=== PATIENT | female | born 1975 | race Caucasian/White ===

== ENCOUNTER → 2018-10-20 | Outpatient (REF) | payer OTHER ==
[2018-10-20 14:59] LABS: BASO % 0.2 % (0.0-1.0); EOS # 0.1 10^3/uL (0.0-0.50); EOS % 1.1 % (0.0-3.0); HEMATOCRIT 35.4 % (36.0-47.0); HEMOGLOBIN 11.3 g/dl (12.0-15.5); LYMPH # 1.1 10^3/uL (1.5-4.5); LYMPH % 24.7 % (24.0-44.0); MEAN CORPUSCULAR HEMOGLOBIN 29.6 pg (27.0-33.0); MEAN CORPUSCULAR HGB CONC 31.9 g/dl (32.0-36.5); MEAN CORPUSCULAR VOLUME 92.7 fl (80.0-96.0); MONO # 0.4 10^3/uL (0.0-0.8); MONO % 7.7 % (0.0-5.0); NEUTROPHILS % 66.1 % (36.0-66.0); PLATELET COUNT, AUTOMATED 142 10^3/uL (150-450); RED BLOOD COUNT 3.82 10^6/uL (4.00-5.40); WHITE BLOOD COUNT 4.5 10^3/uL (4.0-10.0)
[2018-10-20 15:12] LABS: TOTAL PROTEIN,RANDOM URINE 83.4 MG/DL (0.0-12.0)
[2018-10-20 15:13] LABS: APPEARANCE, URINE HAZY (CLEAR); BACTERIA, URINE AUTO 2+ (NEGATIVE); BILIRUBIN, URINE AUTO NEGATIVE (NEGATIVE); BLOOD, URINE BLOOD NEGATIVE (NEGATIVE); COLOR, URINE AMBER (YELLOW); GLUCOSE, URINE (UA) AUTO NEGATIVE (NEGATIVE); KETONE, URINE AUTO TRACE mg/dL (NEGATIVE); LEUKOCYTE ESTERASE, URINE AUTO TRACE (NEGATIVE); MUCUS, URINE SMALL (NEGATIVE); NITRITE, URINE AUTO NEGATIVE (NEGATIVE); PROTEIN, URINE AUTO 1+ mg/dL (NEGATIVE); RBC, URINE AUTO 3 /HPF (0-3); SPECIFIC GRAVITY URINE AUTO 1.023 (1.002-1.035); SQUAMOUS EPITHELIAL CELL UR AU 2 /HPF (0-6); UROBILINOGEN, URINE AUTO 0.2 mg/dL (0.0-2.0); WBC, URINE AUTO 18 /HPF (0-3)
[2018-10-20 15:26] LABS: ALBUMIN 3.5 GM/DL (3.2-5.2); ALT/SGPT 15 U/L (12-78); BILIRUBIN,TOTAL 0.3 MG/DL (0.2-1.0); BLOOD UREA NITROGEN 11 MG/DL (7-18); C REACTIVE PROTEIN QUANTITATIV < 0.30 MG/DL (0.00-0.30); CALCIUM LEVEL 8.5 MG/DL (8.5-10.1); CARBON DIOXIDE LEVEL 31 MEQ/L (21-32); CHLORIDE LEVEL 104 MEQ/L (98-107); COMPLEMENT C3 84 MG/DL (90-180); COMPLEMENT C4 19 MG/DL (10-40); CREATININE FOR GFR 0.74 MG/DL (0.55-1.30); GLOMERULAR FILTRATION RATE > 60.0 (>58); GLUCOSE, FASTING 73 MG/DL (70-100); POTASSIUM SERUM 4.2 MEQ/L (3.5-5.1); SODIUM LEVEL 140 MEQ/L (136-145); TOTAL PROTEIN 6.4 GM/DL (6.4-8.2)
[2018-10-20 15:30] LABS: ERYTHROCYTE SEDIMENTATION RATE 6 mm/hr (0-20)
[2018-10-21 14:25] LABS: ANTI DOUBLE STRAND-DNA AB 1 IU/mL (0-9); RNP ANTIBODY < 0.2 AI (0.0-0.9); SMITHS ANTIBODY < 0.2 AI (0.0-0.9); SSA SJOGRENS A <0.2 AI (0.0-0.9); SSB SJOGRENS B <0.2 AI (0.0-0.9)
[2018-10-22 00:07] LABS: ANA (HEP2) Positive (.)
== END ==
LOC: M SFHCPLAZ 13:39
PROVIDERS: ATTEND Internal Medicine Rheumatology
DX: M32.9 Systemic lupus erythematosus, unspecified (principal)

== ENCOUNTER → 2019-01-11 | Outpatient (REF) | payer OTHER ==
[2019-01-11 18:30] LABS: ALBUMIN 3.3 GM/DL (3.2-5.2); ALT/SGPT 26 U/L (12-78); BILIRUBIN,TOTAL 0.4 MG/DL (0.2-1.0); BLOOD UREA NITROGEN 9 MG/DL (7-18); CALCIUM LEVEL 8.3 MG/DL (8.5-10.1); CARBON DIOXIDE LEVEL 31 MEQ/L (21-32); CHLORIDE LEVEL 102 MEQ/L (98-107); COMPLEMENT C3 70 MG/DL (90-180); COMPLEMENT C4 18 MG/DL (10-40); CREATININE FOR GFR 0.79 MG/DL (0.55-1.30); GLOMERULAR FILTRATION RATE > 60.0 (>58); GLUCOSE, FASTING 77 MG/DL (70-100); POTASSIUM SERUM 3.9 MEQ/L (3.5-5.1); SODIUM LEVEL 138 MEQ/L (136-145); TOTAL PROTEIN 6.4 GM/DL (6.4-8.2)
[2019-01-11 18:43] LABS: BASO % 0.5 % (0.0-1.0); EOS % 0.9 % (0.0-3.0); HEMATOCRIT 33.7 % (36.0-47.0); HEMOGLOBIN 11.1 g/dl (12.0-15.5); LYMPH # 1.2 10^3/uL (1.5-4.5); MEAN CORPUSCULAR HEMOGLOBIN 30.6 pg (27.0-33.0); MEAN CORPUSCULAR HGB CONC 32.9 g/dl (32.0-36.5); MEAN CORPUSCULAR VOLUME 92.8 fl (80.0-96.0); MONO # 0.4 10^3/uL (0.0-0.8); MONO % 9.2 % (0.0-5.0); NEUTROPHILS # 2.7 10^3/uL (1.8-7.7); NEUTROPHILS % 62.2 % (36.0-66.0); PLATELET COUNT, AUTOMATED 143 10^3/uL (150-450); RED BLOOD COUNT 3.63 10^6/uL (4.00-5.40); WHITE BLOOD COUNT 4.3 10^3/uL (4.0-10.0)
[2019-01-12 13:36] LABS: TOTAL PROTEIN,RANDOM URINE 25.8 MG/DL (0.0-12.0)
== END ==
LOC: M SFHCPLAZ 15:37
PROVIDERS: ATTEND Internal Medicine Rheumatology
DX: M32.9 Systemic lupus erythematosus, unspecified (principal)

== ENCOUNTER → 2019-07-09 | Outpatient (CLI) | payer OTHER ==
--- NOTE | 2019-07-23 04:40 | ECWPNPC ---
PATIENT NAME: CINDA NUR : 1975 GENDER: FEMALE VISIT DATE: 07/09/2019 DISCHARGE DATE: 07/09/19 1058 VISIT LOCKED DATE TIME: PHYSICIAN: KARO ROY MD RESOURCE: KARO ROY MD REASON FOR APPOINTMENT 1. NECK/BACK HISTORY OF PRESENT ILLNESS PAIN SCREENING: PATIENT HAS A COMPLAINT OF ACUTE OR CHRONIC PAIN :YES 44 YEAR OLD FEMALE PATIENT WITH A HISTORY OF CHRONIC BACK PAIN. THE PATIENT DESCRIBES THE PAIN ACHING, BURNING, SORE, TENDER, AND CONTINUOUS WITH A PAIN SCORE OF 6-9/10 DEPENDING ON PHYSICAL ACTIVITY. THE PATIENT STATES HER PAIN IS MAINLY LOCATED OVER HER NECK, THORACIC, AND LOW BACK AREAS. THE PATIENT SAYS HER PAIN IS AFFECTING HER ABILITY TO PERFORM HER DAILY ACTIVITIES SUCH COOKING, CLEANING HER HOUSE, AND GROCERY SHOPPING. THE PATIENT SAYS SHE HAS BEEN SUFFERING FROM HER NECK PAIN FOR MANY YEARS, WHILE HER LOW BACK PAIN STARTED AROUND 2 YEARS AGO. THE PATIENT SAYS CURRENTLY HER MAIN CONCERN IS HER LOW BACK AND THORACIC PAIN. PATIENT DENIES UNEXPLAINABLE WEIGHT LOSS, FEVER, CHILLS, NEW CHANGES ON HER URINARY OR BOWEL CONTROL. FALL RISK SCREENING: SCREENING :NO FALLS REPORTED IN THE LAST YEAR CURRENT MEDICATIONS TAKING BUPROPION HCL ER (XL) 150 MG TABLET EXTENDED RELEASE 24 HOUR 1 TABLET IN THE MORNING ORALLY ONCE A DAY TAKING LEVOTHYROXINE SODIUM 150 MCG TABLET 1 TABLET ON AN EMPTY STOMACH IN THE MORNING ORALLY ONCE A DAY TAKING OMEPRAZOLE 40 MG CAPSULE DELAYED RELEASE 1 CAPSULE ORALLY TWICE DAILY TAKING VERAPAMIL HCL ER 180 MG TABLET EXTENDED RELEASE 1 TABLET ORALLY ONCE A DAY TAKING VYVANSE 70 MG CAPSULE 1 CAPSULE IN THE MORNING ORALLY ONCE A DAY TAKING VITAMIN C 500 MG CAPSULE DIRECTED ORALLY TAKING MULTI VITAMIN DAILY - TABLET 1 TABLET ORALLY ONCE A DAY TAKING IRON 325 (65 FE) MG TABLET 1 TABLET ORALLY 3 TIMES PER WEEK TAKING GABAPENTIN 600 MG TABLET 2 TABLETS ORALLY TWICE DAILY TAKING OXYBUTYNIN CHLORIDE 5 MG TABLET 1 TABLET ORALLY DAILY TAKING CLONAZEPAM 1 MG TABLET 1-2 TABLETS ORALLY TWICE DAILY NEEDED TAKING PRAZOSIN HCL 5 MG CAPSULE 1 CAPSULE AT BEDTIME ORALLY BEFORE BEDTIME TAKING TRAZODONE HCL 100 MG TABLET 1- 1/2 TABLETS AT BEDTIME ORALLY QHS PRN TAKING CALCIUM + D3 600-800 MG-UNIT TABLET 1 TABLET WITH A MEAL ORALLY ONCE A DAY MAGNESIUM, ZINC TAKING PLAQUENIL 200 MG TABLET 1 TABLET WITH FOOD OR MILK ORALLY BID TAKING MIRALAX - PACKET 1 PACKET MIXED WITH 8 OUNCES OF FLUID ORALLY 17 GRAMS IN OJ PRN ONCE A DAY TAKING DEPAKOTE 1 CAP ORALLY 500MG BID TAKING MAXALT-LESSON INSTRUCTOR 10 MG TABLET DISINTEGRATING 1 TABLET ORALLY ONCE DAILY NEEDED TAKING DULOXETINE HCL 30 MG CAPSULE DELAYED RELEASE PARTICLES 1 CAPSULE ORALLY ONCE A DAY TAKING HAIR SKIN AND NAILS FORMULA - TABLET DIRECTED ORALLY NOT-TAKING LATUDA 40 MG TABLET 1 TABLET WITH FOOD ORALLY ONCE A DAY NOT-TAKING DIVALPROEX SODIUM 500 MG TABLET DELAYED RELEASE 1 TABLET ORALLY BID NOT-TAKING HYDROXYCHLOROQUINE SULFATE 200 MG TABLET 1 TABLET WITH FOOD OR MILK ORALLY BID NOT-TAKING RIZATRIPTAN BENZOATE 10 MG TABLET 1 TABLET NEEDED ONE TIME ORALLY MDD=2 NOT-TAKING HYDROXYCHLOROQUINE SULFATE 200 MG TABLET 1 TABLET WITH FOOD OR MILK ORALLY BID NOT-TAKING TIZANIDINE HCL 2 MG TABLET TAKE ONE TABLET BY MOUTH THREE TIMES A DAY NEEDED ORAL MEDICATION LIST REVIEWED AND RECONCILED WITH THE PATIENT PAST MEDICAL HISTORY ARTHRITIS DEPRESSION ANXIETY HEADACHE MIGRAINE HEADACHES HYPERTENSION PSYCHIATRIC DISORDER THYROID DISEASE INSOMNIA PTSD FIBROMYALGIA ESOPHAGEAL REFLUX NIGHT [place] SYSTEMIC LUPUS ERYTHATOSUS LYME DISEASE PER 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 1 SON(S) , 2 DAUGHTER(S) - HEALTHY. MOTHER AND FATHER HEALTHYGRANDMOTHER STROKE, DEMENTIA. SOCIAL HISTORY GENERAL: TOBACCO USE ARE YOU A:NONSMOKER OTHERS AT HOME: CHILDREN. HOUSING: OWNS HOME. EDUCATION LEVEL OF EDUCATION:HIGH SCHOOL DIET: REGULAR. LANGUAGE LANGUAGES SPOKEN:KAZAKH DOMESTIC VIOLENCE STATUS: DO YOU FEEL SAFE IN YOUR ENVIRONMENT?NO RECREATIONAL DRUG USE DRUG USE?NO PATIENT DENIES ABUSE OR MISSUSED OF ANY MEDICATION DENIES PATIENT DENIES USE OF ANY ILLEGAL SUBSTANCE INCLUDING MARIJUANA OR COCAINE DENIES EXERCISE: , NO REGULAR EXERCISE. LEARNING BARRIERS / SPECIAL NEEDS BARRIERS TO LEARNING?NO HEARING IMPAIRED?NO VISION IMPAIRED?YES :CORRECTIVE LENSES COGNITIVELY IMPAIRED?NO READINESS TO LEARN?YES LEARNING PREFERENCES?YES :DEMONSTRATION/VERBAL INSTRUCTION LEARNING CAPABILITIES PRESENT?YES EMOTIONAL BARRIERS?NO SPECIAL DEVICES?NO SUPERINTENDENT TERMINAL NEEDED?NO PAIN CLINIC PFS, CLERGY, PUBLIC HEALTH REFERRALS PFS REFERRAL NEEDED?NO CLERGY REFERRAL NEEDED?NO PUBLIC HEALTH REFERRAL NEEDED?NO WAS THE PROVIDER NOTIFIED OF ANY PERTINENT INFO?YES HAS THE PATIENT BEEN EDUCATED REGARDING HIS/HER PLAN OF CARE?YES HAS THE PATIENT BEEN EDUCATED REGARDING PAIN, THE RISK FOR PAIN, THE IMPORTANCE OF EFFECTIVE PAIN MANAGEMENT, AND THE PAIN ASSESSMENT PROCESS?YES LATEX QUESTIONNAIRE LATEX ALLERGY : HAVE YOU EVER DEVELOPED ANY TYPE OF REACTION AFTER HANDLING LATEX PRODUCTS SUCH RUBBER GLOVES, CONDOMS, DIAPHRAGMS, BALLOONS, SOCKS, OR UNDERWEAR?NO LATEX ALLERGY : HAVE YOU EVER DEVELOPED ANY TYPE OF REACTION DURING OR AFTER DENTAL APPOINTMENT, VAGINAL/RECTAL EXAMINATION, SURGICAL PROCEDURE, OR ANY OTHER EXPOSURE?NO LATEX RISK : HAVE YOU EVER HAD ANY DIFFICULTY BREATHING OR HIVES AFTER EATING OR HANDLING ANY FRUITS, OR VEGETABLES; SUCH KIWI, BANANAS, STONE FRUITS, OR CHESTNUTSNO LATEX RISK : DO YOU HAVE A PREVIOUS PERSONAL HISTORY OF MORE THAN NINE SURGERIES, SPINA BIFIDA, OR REPEATED CATHERIZATIONS? NO LATEX RISK : ARE YOU FREQUENTLY EXPOSED TO LATEX PRODUCTS IN YOUR OCCUPATION?NO DATE ASKED : 07/01/2019 CAFFEINE CAFFEINE USE?YES TEA 1 CUP DAILY SODA 1 OCCASIONALLY ADVANCE DIRECTIVE ADVANCE DIRECTIVE DISCUSSED WITH PATIENT:NO STATES SHE HAS NO ADVANCED DIRECTIVES INTERESTED IN HAVING PAPERWORK 07/01/19 1147 [facility] NO CONGREGATION BELIEFS THAT WOULD IMPACT HEALTH CARE. MARITAL STATUS: .. ALCOHOL SCREENING DID YOU HAVE A DRINK CONTAINING ALCOHOL IN THE PAST YEAR?YES HOW OFTEN DID YOU HAVE A DRINK CONTAINING ALCOHOL IN THE PAST YEAR?MONTHLY OR LESS (1 POINT) HOW MANY DRINKS DID YOU HAVE ON A TYPICAL DAY WHEN YOU WERE DRINKING IN THE PAST YEAR?3 OR 4 (1 POINT) HOW OFTEN DID YOU HAVE SIX OR MORE DRINKS ON ONE OCCASION IN THE PAST YEAR?NEVER (0 POINTS) POINTS2 INTERPRETATIONNEGATIVE OCCUPATION: DISABELED. REVIEWED WITH PATIENT PT REQUEST HCP PAPERWORK AT APPT 07/01/19 1145 NLJ PRE NEW PT CONSULT APPT TELEPHONE CALL COMPLETED 07/01/19 1150 NLJ. HOSPITALIZATION/MAJOR DIAGNOSTIC PROCEDURE CHILDBIRTH KIDNEY INFECTION SURGERIES REVIEW OF SYSTEMS REVIEWED BY: PROVIDER: KARO ROY MD . CONSTITUTIONAL: ANY CHANGE IN YOUR MEDICAL CONDITION? YES- ? LYME DISEASE FROM BLOOD WORK IN MAY 2019- SEEING VET TECH . CHILLS NO . FEVER NO . INFECTION: DO YOU HAVE NEW INFECTIONS? YES- BLADDER INFECTION . DO YOU HAVE HISTORY OF MRSA? NO . MUSCULOSKELETAL: ANY NEW PATTERNS OF PAIN OR NUMBNESS? NO . SYTEMIC LUPUS YES . GASTROENTEROLOGY: ANY NEW CHANGE IN BOWEL CONTROL? NO . BARRETTS ESOPHAGUS NO . CIRRHOSIS NO . HEPATITIS NO . LIVER FAILURE NO . ACID REFLUX YES . UNEXPLAINED WEIGHT LOSS NO . GENITOURINARY: ANY NEW CHANGE IN BLADDER CONTROL? YES- URINARY URGENCY- TAKES OXYBUTIN CHLORIDE . IS THERE A CHANCE YOU COULD BE ? NO . HEMATOLOGY/LYMPH: DO YOU TAKE ANY BLOOD THINNERS? (FOR EXAMPLE- COUMADIN, PLAVIX, AGGRENOX, PLATEL, PRADAXA, OR XARELTO) NO . WHEN WAS YOUR LAST DOSE? DATE: TIME: . LOW PLATELET COUNT NO . SICKLE CELL DISEASE NO . VON WILLIEBRANDS NO . FACTOR V LEIDEN NO . THALLASEMIA NO . ANEMIA YES- TAKES IRON 3-4 TIMES A WEEK . EASY BRUISING NO . NEUROLOGY: HAVE YOU FALLEN IN THE PAST 12 MONTHS? NO . ANY NEW EXTREMITY NUMBNESS OR WEAKNESS? NO . HEAD INJURY NO . DEMENTIA NO . CEREBRAL PALSY NO . MULTIPLE SCLEROSIS NO . DIZZINESS IMPROVING . HEADACHE ADMITS- STATESSHE HAS FREQUENT MIGRAINES . STROKES NO . VERTIGO NO . CARDIOLOGY: DO YOU HAVE A PACEMAKER OR DEFIBRILLATOR? NO . ANGINA NO . HEART ATTACK NO . HEART SURGERY NO . CONGESTIVE HEART FAILURE/FLUID OVERLOAD NO . CHEST PAIN NO . HIGH BLOOD PRESSURE NO . IRREGULAR HEART BEAT NO . RESPIRATORY: HAVE YOU BEEN SICK IN THE PAST WEEK? NO . FEVER NO . FLU LIKE SYMPTOMS? NO . CPAP NO . BYPAP NO . ASTHMA NO . EMPHYSEMA NO . CHRONIC LUNG DISEASES NO . SHORTNESS OF BREATH ON EXERTION NO . COUGH NO . SNORING NO . INTEGUMENTARY: DO YOU HAVE ANY RASHES OR OPEN SORES? NO . ALLERGIC/IMMUNO: ARE YOU ALLERGIC TO IV DYE? NO . ANY NEW ALLERGIES? NO . PSYCHIATRIC: DO YOU HAVE THOUGHTS OF HURTING YOURSELF OR SOMEONE ELSE? NO . ARE YOU ABUSED, NEGLECTED, OR IN AN UNSAFE ENVIRONMENT? NO . ENDOCRINOLOGY: ARE YOU DIABETIC? NO . THYROID DISORDER HYPOTHYROID . OTHER: DO YOU NEED ANY PRESCRIPTIONS? NO . IF YES, PLEASE LIST: ____ . ANY NEW PROBLEMS WITH YOUR MEDICATIONS? NO . WHEN DID YOU LAST EAT? ____ . WHEN DID YOU LAST DRINK? ____ . WHAT DID YOU LAST DRINK? ____ . NAME OF PERSON DRIVING YOU HOME? ____ . DO YOU HAVE ANY OTHER QUESTIONS OR CONCERNS NO . VITAL SIGNS WT 151.4 LBS, HT 64 IN, BMI 25.98 INDEX, BP 145/89 MM HG, HR 66 /MIN, RR 18 /MIN, TEMP 96.9 F, OXYGEN SAT % 100%, SAFE IN ENV? (Y/N) YES, NA INITIALS NC 09:16, REVIEWED BY: MATT. EXAMINATION GENERAL EXAMINATION: PATIENT IS ALERT O X 3 AND COOPERATIVE. LUNGS CLEAR, TO AUSCULTATION. HEART: NO MURMURS OR GALLOPS; FACIAL CRANIAL NERVES ARE GROSSLY NORMAL. GOOD SYMMETRY OF FACIAL MUSCLE MOVEMENT. NORMAL VISUAL SHEPARD. ANTALGIC WALK. PATIENT IS SLIGHTLY LIMPING OVER HER RIGHT LEG. PATIENT CAN ABDUCT UPPER EXTREMITIES. LEFT ARM IS WEAKER AT EXTENSION AND FLEXION. LEFT HAND WILL CALL ORDER CLERK IS REDUCED COMPARED WITH THE RIGHT SIDE. TENDERNESS OVER THE PARASPINAL MUSCLE GROUP OF THE NECK AND SHOULDER AREAS. PRESENCE OF BANDS OF TISSUE AND TRIGGER POINTS WITH RESTRICTION OF MOVEMENT OF THE NECK AND SHOULDER AREAS. TENDERNESS OVER THE PARASPINAL MUSCLE GROUP OF THE THORACIC AND LOW BACK AREAS. PRESENCE OF BANDS OF TISSUE AND TRIGGER POINTS WITH RESTRICTION OF MOVEMENT OF THE THORACIC AND LOW BACK. RIGHT LEG IS WEAKER AT EXTENSION AND FLEXION. STRAIGHT LEG RAISE OF THE RIGHT LEG IS POSITIVE AT 45 DEGREES FOR RADICULOPATHY. MRI OF THE CERVICAL SPINE DONE ON 05/10/2019 SHOWS BULGING DISCS AND FACET ARTHROPATHY CHANGES AT MULTIPLE LEVELS. LUMBAR SPINE MRI DONE ON 05/10/2019 SHOWS DISC DEGENERATION AT L3-L4 AND A TEAR OF THE RIGHT L3 ROOTLET. 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 NUR'S PAIN MANAGEMENT CASE. I WOULD LIKE TO ORDER FOR A THORACIC X-RAY TO GAIN A BETTER UNDERSTANDING OF WHAT IS CAUSING THE PATIENT'S THORACIC PAIN. DUE TO THE TRIGGER POINTS, BANDS OF TISSUE, AND RESTRICTION OF MOVEMENT, I WOULD LIKE TO MOVE FORWARD WITH A LOW BACK TRIGGER POINT INJECTION AT THIS TIME. WE DISCUSSED THE BENEFITS, RISKS, AND ALTERNATIVES OF THE INJECTION AND THE PATIENT WOULD LIKE TO PROCEED. I AM LOOKING FOR LONG LASTING PAIN RELIEF FROM THIS INJECTION FOR THE PATIENT. DEPENDING ON THE TRIGGER POINT INJECTION RESULTS, I MAY CONSIDER PERFORMING A L3-L4 LUMBAR EPIDURAL STEROID INJECTION IN THE FUTURE. THE PATIENT WILL FOLLOW UP IN SEVERAL WEEKS TO SEE HOW THE TRIGGER POINT INJECTION IS HELPING WITH HER PAIN. INSTRUCTIONS WERE GIVEN, QUESTIONS WERE ANSWERED, PATIENT REPORTS UNDERSTANDING AND AGREES WITH THE PLAN. I, MONALISA SULLIVAN, DOCUMENTED THE ABOVE INFORMATION ACTING A SCRIBE FOR DR. ROY. I HAVE REVIEWED THE ABOVE DOCUMENT, WRITTEN BY MONALISA ROSA AND I VERIFY THAT IT IS ACCURATE. DEAR GILLIAN CABRAL PA-C: THANK YOU FOR YOUR KIND REFERRAL OF CINDA NUR. IF YOU WANT TO DISCUSS HER CASE WITH ME PLEASE CALL ME AT THE PAIN CENTER AT [phone]. SINCERELY, KARO ROY MD PAIN MEDICINE . OTHERS NOTES: TRIGGER POINT INJECTION, TRIGGER POINT INJECTIONS, TRIGGER POINT INJECTION HOME CARE MATERIAL WAS PUBLISHED TO PORTAL,TRIGGER POINT INJECTION HOME CARE MATERIAL WAS PRINTED,TRIGGER POINT INJECTION MATERIAL WAS PRINTED. PROCEDURE CODES FA211 ESTABILISHED PATIENT [facility] FACILITY CHARGE G8427 CURRENT MEDS W/DOSAGES DOCUMENTED G8730 PAIN ASSESS POS TOOL F/U PLAN DOC DISPOSITION & COMMUNICATION FOLLOW UP REASON: ORDER THORACIC X-RAY, TPI LB ELECTRONICALLY SIGNED BY KARO ROY MD, MD ON 07/22/2019 AT 01:55 PM EST DISCLAIMER : THIS IS A VISIT SUMMARY EXTRACTED FROM THE Last[employer] CHART. IT IS NOT A COPY OF THE Last[employer] PROGRESS NOTE. LURDES
== END ==
LOC: M PAIN 09:15
PROVIDERS: ATTEND Anesthesiology
DX: M79.18 Myalgia, other site (principal); M54.2 Cervicalgia; M54.5 Low back pain; G89.29 Other chronic pain; M47.812 Spondylosis without myelopathy or radiculopathy, cervical region; M51.16 Intervertebral disc disorders with radiculopathy, lumbar region

== ENCOUNTER → 2019-10-01 | Outpatient (CLI) | payer OTHER ==
[~2019-10-01] MED LIST: BUPIVACAINE HCL 0.25% 30 ML VIAL As Ordered ONE; TRIAMCINOLONE ACETONIDE SUSP 40 MG/ML VIAL (J3301) As Ordered ONE; diazePAM 5 MG TAB As Ordered ONE
--- NOTE | 2019-10-15 04:10 | ECWPNPC ---
PATIENT NAME: CINDA NUR : 1975 GENDER: FEMALE VISIT DATE: 10/01/2019 DISCHARGE DATE: 10/01/19 1007 VISIT LOCKED DATE TIME: PHYSICIAN: KARO ROY MD RESOURCE: KARO ROY MD REASON FOR APPOINTMENT 1. CASSIDY LB TPI HISTORY OF PRESENT ILLNESS HISTORY OF PRESENT ILLNESS: PAIN THE PATIENT DESCRIBES THE PAIN... FALL RISK SCREENING: SCREENING :NO FALLS REPORTED IN THE LAST YEAR CURRENT MEDICATIONS TAKING METHOTREXATE SODIUM 2.5 MG TABLET 4 TABLETS DIRECTED ORALLY ONCE WEEKLY, NOTES: 09/26 TAKING FOLIC ACID 1 MG TABLET 1 TABLET ORALLY ONCE A DAY, NOTES: 09/29 TAKING BUPROPION HCL ER (XL) 150 MG TABLET EXTENDED RELEASE 24 HOUR 1 TABLET IN THE MORNING ORALLY ONCE A DAY, NOTES: 09/29 TAKING LEVOTHYROXINE SODIUM 150 MCG TABLET 1 TABLET ON AN EMPTY STOMACH IN THE MORNING ORALLY ONCE A DAY, NOTES: 09/29 TAKING OMEPRAZOLE 40 MG CAPSULE DELAYED RELEASE 1 CAPSULE ORALLY TWICE DAILY, NOTES: 09/29 TAKING VERAPAMIL HCL ER 180 MG TABLET EXTENDED RELEASE 1 TABLET ORALLY ONCE A DAY, NOTES: 09/29 TAKING VYVANSE 70 MG CAPSULE 1 CAPSULE IN THE MORNING ORALLY ONCE A DAY, NOTES: 09/29 TAKING IRON 325 (65 FE) MG TABLET 1 TABLET ORALLY 3 TIMES PER WEEK, NOTES: 09/29 TAKING GABAPENTIN 600 MG TABLET 2 TABLETS ORALLY TWICE DAILY, NOTES: 09/29 TAKING OXYBUTYNIN CHLORIDE 5 MG TABLET 1 TABLET ORALLY DAILY, NOTES: 09/29 TAKING CLONAZEPAM 1 MG TABLET 1-2 TABLETS ORALLY TWICE DAILY NEEDED, NOTES: 09/29 TAKING PRAZOSIN HCL 2 MG CAPSULE 1 CAPSULE AT BEDTIME ORALLY BEFORE BEDTIME, NOTES: 09/29 TAKING TRAZODONE HCL 50 MG TABLET 1- 1/2 TABLETS AT BEDTIME ORALLY QHS PRN, NOTES: 09/29 TAKING PLAQUENIL 200 MG TABLET 2 TABLETS ORALLY BID, NOTES: 09/29 TAKING MIRALAX - PACKET 1 PACKET MIXED WITH 8 OUNCES OF FLUID ORALLY 17 GRAMS IN OJ PRN ONCE A DAY, NOTES: NEEDED TAKING DEPAKOTE 1 CAP ORALLY 500MG BID, NOTES: 09/29 TAKING MAXALT-CONCRETE MIXER LOADER TRUCK MOUNTED 10 MG TABLET DISINTEGRATING 1 TABLET ORALLY ONCE DAILY NEEDED, NOTES: NONE RECENT TAKING DULOXETINE HCL 30 MG CAPSULE DELAYED RELEASE PARTICLES 1 CAPSULE ORALLY TWICE A DAY, NOTES: 09/29 TAKING REXULTI 1 MG TABLET 1 TABLET ORALLY ONCE A DAY, NOTES: 09/29 14 DAY STARTER PACK (0.5 MG - 1 MG) TAKING CYCLOBENZAPRINE HCL 10 MG TABLET 1 TABLET AT BEDTIME NEEDED ORALLY ONCE A DAY, NOTES: 09/29 TAKING MAY USE MEDICAL MARIJUANA NOT-TAKING CARISOPRODOL 250 MG TABLET 1-3 DAILY ORAL NEEDED NOT-TAKING CALCIUM + D3 600-800 MG-UNIT TABLET 1 TABLET WITH A MEAL ORALLY ONCE A DAY MAGNESIUM, ZINC NOT-TAKING VITAMIN C 500 MG CAPSULE DIRECTED ORALLY NOT-TAKING MULTI VITAMIN DAILY - TABLET 1 TABLET ORALLY ONCE A DAY NOT-TAKING HAIR SKIN AND NAILS FORMULA - TABLET DIRECTED ORALLY NOT-TAKING DOXYCYCLINE MONOHYDRATE 100 MG CAPSULE ORAL NOT-TAKING CULTURELLE IMMUNITY SUPPORT - CAPSULE ORAL MEDICATION LIST REVIEWED AND RECONCILED WITH THE PATIENT PAST MEDICAL HISTORY ARTHRITIS DEPRESSION ANXIETY HEADACHE MIGRAINE HEADACHES HYPERTENSION PSYCHIATRIC DISORDER THYROID DISEASE INSOMNIA PTSD FIBROMYALGIA ESOPHAGEAL REFLUX NIGHT [place] SYSTEMIC LUPUS ERYTHATOSUS LYME DISEASE PER 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 1 SON(S) , 2 DAUGHTER(S) - HEALTHY. MOTHER AND FATHER HEALTHYGRANDMOTHER STROKE, DEMENTIA. SOCIAL HISTORY GENERAL: TOBACCO USE ARE YOU A:NONSMOKER OTHERS AT HOME: CHILDREN. HOUSING: OWNS HOME. EDUCATION LEVEL OF EDUCATION:HIGH SCHOOL DIET: REGULAR. LANGUAGE LANGUAGES SPOKEN:BENINESE DOMESTIC VIOLENCE STATUS: DO YOU FEEL SAFE IN YOUR ENVIRONMENT?NO RECREATIONAL DRUG USE DRUG USE?NO PATIENT DENIES ABUSE OR MISSUSED OF ANY MEDICATION DENIES PATIENT DENIES USE OF ANY ILLEGAL SUBSTANCE INCLUDING MARIJUANA OR COCAINE DENIES EXERCISE: , NO REGULAR EXERCISE. LEARNING BARRIERS / SPECIAL NEEDS BARRIERS TO LEARNING?NO HEARING IMPAIRED?NO VISION IMPAIRED?YES COGNITIVELY IMPAIRED?NO :CORRECTIVE LENSES READINESS TO LEARN?YES LEARNING PREFERENCES?YES :DEMONSTRATION/VERBAL INSTRUCTION LEARNING CAPABILITIES PRESENT?YES EMOTIONAL BARRIERS?NO SPECIAL DEVICES?NO BRASS BUFFER NEEDED?NO PAIN CLINIC PFS, CLERGY, PUBLIC HEALTH REFERRALS PFS REFERRAL NEEDED?NO CLERGY REFERRAL NEEDED?NO PUBLIC HEALTH REFERRAL NEEDED?NO WAS THE PROVIDER NOTIFIED OF ANY PERTINENT INFO?YES HAS THE PATIENT BEEN EDUCATED REGARDING HIS/HER PLAN OF CARE?YES HAS THE PATIENT BEEN EDUCATED REGARDING PAIN, THE RISK FOR PAIN, THE IMPORTANCE OF EFFECTIVE PAIN MANAGEMENT, AND THE PAIN ASSESSMENT PROCESS?YES LATEX QUESTIONNAIRE LATEX ALLERGY : HAVE YOU EVER DEVELOPED ANY TYPE OF REACTION AFTER HANDLING LATEX PRODUCTS SUCH RUBBER GLOVES, CONDOMS, DIAPHRAGMS, BALLOONS, SOCKS, OR UNDERWEAR?NO LATEX ALLERGY : HAVE YOU EVER DEVELOPED ANY TYPE OF REACTION DURING OR AFTER DENTAL APPOINTMENT, VAGINAL/RECTAL EXAMINATION, SURGICAL PROCEDURE, OR ANY OTHER EXPOSURE?NO DATE ASKED : 08/30/2019 LATEX RISK : HAVE YOU EVER HAD ANY DIFFICULTY BREATHING OR HIVES AFTER EATING OR HANDLING ANY FRUITS, OR VEGETABLES; SUCH KIWI, BANANAS, STONE FRUITS, OR CHESTNUTSNO LATEX RISK : DO YOU HAVE A PREVIOUS PERSONAL HISTORY OF MORE THAN NINE SURGERIES, SPINA BIFIDA, OR REPEATED CATHERIZATIONS? NO LATEX RISK : ARE YOU FREQUENTLY EXPOSED TO LATEX PRODUCTS IN YOUR OCCUPATION?NO CAFFEINE CAFFEINE USE?YES TEA 1 CUP DAILY SODA 1 OCCASIONALLY ADVANCE DIRECTIVE ADVANCE DIRECTIVE DISCUSSED WITH PATIENT:YES STATES SHE HAS NO ADVANCED DIRECTIVES INTERESTED IN HAVING PAPERWORK CONFUCIANISM CONFUCIANISM NO RESTORATION BELIEFS THAT WOULD IMPACT HEALTH CARE. MARITAL STATUS: .. ALCOHOL SCREENING DID YOU HAVE A DRINK CONTAINING ALCOHOL IN THE PAST YEAR?YES HOW OFTEN DID YOU HAVE SIX OR MORE DRINKS ON ONE OCCASION IN THE PAST YEAR?NEVER (0 POINTS) HOW MANY DRINKS DID YOU HAVE ON A TYPICAL DAY WHEN YOU WERE DRINKING IN THE PAST YEAR?3 OR 4 (1 POINT) HOW OFTEN DID YOU HAVE A DRINK CONTAINING ALCOHOL IN THE PAST YEAR?MONTHLY OR LESS (1 POINT) POINTS2 INTERPRETATIONNEGATIVE OCCUPATION: DISABELED. REVIEWED WITH PATIENT PT REQUEST HCP PAPERWORK AT APPT 07/01/19 1145 NLJ PRE NEW PT CONSULT APPT TELEPHONE CALL COMPLETED 07/01/19 1150 NLJ. HOSPITALIZATION/MAJOR DIAGNOSTIC PROCEDURE CHILDBIRTH KIDNEY INFECTION SURGERIES REVIEW OF SYSTEMS REVIEWED BY: PROVIDER: . CONSTITUTIONAL: ANY CHANGE IN YOUR MEDICAL CONDITION? NO . CHILLS NO . FEVER NO . INFECTION: DO YOU HAVE NEW INFECTIONS? NO . DO YOU HAVE HISTORY OF MRSA? NO . MUSCULOSKELETAL: ANY NEW PATTERNS OF PAIN OR NUMBNESS? NO . GASTROENTEROLOGY: ANY NEW CHANGE IN BOWEL CONTROL? NO . GENITOURINARY: ANY NEW CHANGE IN BLADDER CONTROL? NO . IS THERE A CHANCE YOU COULD BE ? NO . HEMATOLOGY/LYMPH: DO YOU TAKE ANY BLOOD THINNERS? (FOR EXAMPLE- COUMADIN, PLAVIX, AGGRENOX, PLATEL, PRADAXA, OR XARELTO) NO . WHEN WAS YOUR LAST DOSE? DATE: TIME: . NEUROLOGY: HAVE YOU FALLEN IN THE PAST 12 MONTHS? NO . ANY NEW EXTREMITY NUMBNESS OR WEAKNESS? NO . CARDIOLOGY: DO YOU HAVE A PACEMAKER OR DEFIBRILLATOR? NO . RESPIRATORY: HAVE YOU BEEN SICK IN THE PAST WEEK? NO . FEVER NO . FLU LIKE SYMPTOMS? NO . COUGH NO . INTEGUMENTARY: DO YOU HAVE ANY RASHES OR OPEN SORES? NO . ALLERGIC/IMMUNO: ARE YOU ALLERGIC TO IV DYE? NO . ANY NEW ALLERGIES? NO . PSYCHIATRIC: DO YOU HAVE THOUGHTS OF HURTING YOURSELF OR SOMEONE ELSE? NO . ARE YOU ABUSED, NEGLECTED, OR IN AN UNSAFE ENVIRONMENT? NO . ENDOCRINOLOGY: ARE YOU DIABETIC? NO . OTHER: DO YOU NEED ANY PRESCRIPTIONS? NO . IF YES, PLEASE LIST: ____ . ANY NEW PROBLEMS WITH YOUR MEDICATIONS? NO . WHEN DID YOU LAST EAT? ____09/29 2129 . WHEN DID YOU LAST DRINK? ____09/29 2199 . WHAT DID YOU LAST DRINK? ____WATER . NAME OF PERSON DRIVING YOU HOME? ____MOM JOHNNY TEE . DO YOU HAVE ANY OTHER QUESTIONS OR CONCERNS NO . VITAL SIGNS WT 155 LBS, HT 64 IN, BMI 26.60 INDEX, BP 110/69 MM HG, HR 68 /MIN, RR 16 /MIN, TEMP 99.0 F, OXYGEN SAT % 98%, SAFE IN ENV? (Y/N) YES, REVIEWED BY: LAS. LEHMAN MYALGIA, OTHER SITE - M79.18 (PRIMARY) PROCEDURES PN TRIGGER POINT INJECTION WITH STEROIDS PRE PROCEDURE DIAGNOSIS 1. MYALGIA 2. PAIN AT BILATERAL LUMBAR AREA. POST PROCEDURE DIAGNOSIS 1. MYALGIA 2. PAIN AT BILATERAL LUMBAR AREA. PROCEDURE TRIGGER POINT INJECTION AT RIGHT AND LEFT LOW BACK AREA. SURGEON DR. KARO ROY SENIOR COST ANALYST NONE ANESTHESIA LOCAL PRE PROCEDURE NOTE THE PATIENT HAS A HISTORY OF CHRONIC PAIN AT THE RIGHT AND LEFT LOW BACK AREA. I EVALUATED THE PATIENT AND REVIEWED THE CHART. THERE IS EVIDENCE OF BANDS OF TISSUE WITH RESTRICTION OF MOVEMENT AND PRESENCE OF TRIGGER POINT AT THE AFFECTED AREA. I WENT OVER THE RISKS, ALTERNATIVES, AND BENEFITS ASSOCIATED WITH THIS PROCEDURE. THE PATIENT WOULD LIKE TO PROCEED AND GIVE CONSENT TO PERFORMED THE PROCEDURE. THE PATIENT DENIES UNEXPLAINABLE WEIGHT LOSS, FEVER, CHILLS, OR NEW CHANGES IN URINARY OR BOWEL CONTROL DESCRIPTION OF PROCEDURE THE PATIENT WAS BROUGHT TO THE PROCEDURE ROOM AND PLACED IN THE SITTING POSITION. THE AREA WAS CLEANED WITH ALCOHOL. THE PROCEDURE WAS DONE USING ASEPTIC STERILE TECHNIQUE. I CHECKED LATERALITY AND THE LEVEL WHERE THE PROCEDURE WAS GOING TO BE PERFORMED WITH THE PATIENT AND THE SUPPORTING STAFF AT THE MOMENT OF THE TIME OUT IN THE PROCEDURE ROOM. USING A 25-GAUGE NEEDLE, TRIGGER POINTS WERE INJECTED AT THE RIGHT AND LEFT LOW BACK AREA WITH A TOTAL OF 40 ML OF BUPIVACAINE 0.25% AND KENALOG 40 MG. THERE WAS NO EVIDENCE OF BLOOD, PARESTHESIA OR CEREBROSPINAL FLUID DURING THE PROCEDURE. THE PATIENT WAS SENT TO THE RECOVERY ROOM. THE PATIENT WAS MOVING THE EXTREMITIES AND DOING WELL. THERE WAS NO COMPLICATION DURING THE PROCEDURE POST PROCEDURE NOTE THE PATIENT WILL BE SEEN IN A FOLLOW UP IN THE NEXT FEW WEEK TO SEE HOW THE INJECTION IS HELPING WITH HER PAIN. DEPENDING ON THIS PROCEDURE'S RESULTS, I MAY CONSIDER PERFORMING A SACROILIAC JOINT BLOCK FOR THE PATIENT IN THE FUTURE. INSTRUCTIONS WERE GIVEN, QUESTIONS WERE ANSWERED, AND THE PATIENT EXPRESSED UNDERSTANDING AND AGREES WITH THE PLAN. I, MONALISA SULLIVAN, DOCUMENTED THE ABOVE INFORMATION ACTING A SCRIBE FOR DR. ROY. I HAVE REVIEWED THE ABOVE DOCUMENT, WRITTEN BY MONALISA ROSA AND I VERIFY THAT IT IS ACCURATE. PROCEDURE CODES 56007 INJ TRIGGER POINT / [facility] [place] [facility] COMMUNICATION FOLLOW UP 3 WEEKS ELECTRONICALLY SIGNED BY KARO ROY MD, MD ON 10/14/2019 AT 09:59 AM EDT DISCLAIMER : THIS IS A VISIT SUMMARY EXTRACTED FROM THE [employer] CHART. IT IS NOT A COPY OF THE [employer] PROGRESS NOTE. LURDES
== END ==
LOC: M PAIN 08:45
PROVIDERS: ATTEND Anesthesiology
DX: M79.18 Myalgia, other site (principal)
CPT/HCPCS: 20552; J3301

== ENCOUNTER → 2019-10-15 | Outpatient (CLI) | payer OTHER ==
--- NOTE | 2019-10-27 03:47 | ECWPNPC ---
PATIENT NAME: CINDA NUR : 1975 GENDER: FEMALE VISIT DATE: 10/15/2019 DISCHARGE DATE: 10/15/19 1122 VISIT LOCKED DATE TIME: PHYSICIAN: GAUDENCIO LEZAMA RESOURCE: GAUDENCIO LEZAMA REASON FOR APPOINTMENT 1. POST TPI HISTORY OF PRESENT ILLNESS HISTORY OF PRESENT ILLNESS: HERE FOR POST PROCEDURE FOLLOW-UP. HAD BILATERAL LOW BACK, TRIGGER POINT INJECTIONS ON 10/01/2019. REPORTS MARKED IMPROVEMENT WITH LOW BACK PAIN AND BILATERAL LEG PAIN THAT CONTINUES TODAY. CHIEF AREA OF PAIN IS NECK REGION AND UPPER BACK. RATING PAIN LEVEL A 6/10 VAS. PAIN THE PATIENT DESCRIBES THE PAIN... FALL RISK SCREENING: SCREENING :NO FALLS REPORTED IN THE LAST YEAR CURRENT MEDICATIONS TAKING METHOTREXATE SODIUM 2.5 MG TABLET 4 TABLETS DIRECTED ORALLY ONCE WEEKLY TAKING FOLIC ACID 1 MG TABLET 1 TABLET ORALLY ONCE A DAY TAKING BUPROPION HCL ER (XL) 150 MG TABLET EXTENDED RELEASE 24 HOUR 1 TABLET IN THE MORNING ORALLY ONCE A DAY TAKING LEVOTHYROXINE SODIUM 150 MCG TABLET 1 TABLET ON AN EMPTY STOMACH IN THE MORNING ORALLY ONCE A DAY TAKING OMEPRAZOLE 40 MG CAPSULE DELAYED RELEASE 1 CAPSULE ORALLY TWICE DAILY TAKING VERAPAMIL HCL ER 180 MG TABLET EXTENDED RELEASE 1 TABLET ORALLY ONCE A DAY TAKING VYVANSE 70 MG CAPSULE 1 CAPSULE IN THE MORNING ORALLY ONCE A DAY TAKING IRON 325 (65 FE) MG TABLET 1 TABLET ORALLY 3 TIMES PER WEEK TAKING GABAPENTIN 600 MG TABLET 2 TABLETS ORALLY TWICE DAILY TAKING OXYBUTYNIN CHLORIDE 5 MG TABLET 1 TABLET ORALLY DAILY TAKING CLONAZEPAM 1 MG TABLET 1-2 TABLETS ORALLY TWICE DAILY NEEDED TAKING PRAZOSIN HCL 2 MG CAPSULE 1 CAPSULE AT BEDTIME ORALLY BEFORE BEDTIME TAKING TRAZODONE HCL 50 MG TABLET 1- 1/2 TABLETS AT BEDTIME ORALLY QHS PRN TAKING PLAQUENIL 200 MG TABLET 2 TABLETS ORALLY BID TAKING MIRALAX - PACKET 1 PACKET MIXED WITH 8 OUNCES OF FLUID ORALLY 17 GRAMS IN OJ PRN ONCE A DAY TAKING DEPAKOTE 1 CAP ORALLY 500MG BID TAKING MAXALT-SOAP MIXER 10 MG TABLET DISINTEGRATING 1 TABLET ORALLY ONCE DAILY NEEDED TAKING DULOXETINE HCL 30 MG CAPSULE DELAYED RELEASE PARTICLES 1 CAPSULE ORALLY TWICE A DAY TAKING REXULTI 1 MG TABLET 1 TABLET ORALLY ONCE A DAY, NOTES: 09/29 14 DAY STARTER PACK (0.5 MG - 1 MG) TAKING CYCLOBENZAPRINE HCL 10 MG TABLET 1 TABLET AT BEDTIME NEEDED ORALLY ONCE A DAY TAKING MAY USE MEDICAL MARIJUANA NOT-TAKING CARISOPRODOL 250 MG TABLET 1-3 DAILY ORAL NEEDED NOT-TAKING CALCIUM + D3 600-800 MG-UNIT TABLET 1 TABLET WITH A MEAL ORALLY ONCE A DAY MAGNESIUM, ZINC NOT-TAKING VITAMIN C 500 MG CAPSULE DIRECTED ORALLY NOT-TAKING MULTI VITAMIN DAILY - TABLET 1 TABLET ORALLY ONCE A DAY NOT-TAKING HAIR SKIN AND NAILS FORMULA - TABLET DIRECTED ORALLY NOT-TAKING DOXYCYCLINE MONOHYDRATE 100 MG CAPSULE ORAL NOT-TAKING CULTURELLE IMMUNITY SUPPORT - CAPSULE ORAL MEDICATION LIST REVIEWED AND RECONCILED WITH THE PATIENT PAST MEDICAL HISTORY ARTHRITIS DEPRESSION ANXIETY HEADACHE MIGRAINE HEADACHES HYPERTENSION PSYCHIATRIC DISORDER THYROID DISEASE INSOMNIA PTSD FIBROMYALGIA ESOPHAGEAL REFLUX NIGHT [place] SYSTEMIC LUPUS ERYTHATOSUS LYME DISEASE PER 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 1 SON(S) , 2 DAUGHTER(S) - HEALTHY. MOTHER AND FATHER HEALTHYGRANDMOTHER STROKE, DEMENTIA. SOCIAL HISTORY GENERAL: TOBACCO USE ARE YOU A:NONSMOKER OTHERS AT HOME: CHILDREN. HOUSING: OWNS HOME. EDUCATION LEVEL OF EDUCATION:HIGH SCHOOL DIET: REGULAR. LANGUAGE LANGUAGES SPOKEN:FILIPINO DOMESTIC VIOLENCE STATUS: DO YOU FEEL SAFE IN YOUR ENVIRONMENT?NO NEW PATIENT PAIN DIARY PATIENT DESCRIBES PAIN :ACHING, IT COMES AND GOES, THROBBING FROM 0-10, WHAT LEVEL IS YOUR PAIN TODAY?7 PRECIPITATING FACTORS ACTIVITY ALLEVIATING FACTORS HEAT, MEDS IMPACT ON FUNCTION YES RECREATIONAL DRUG USE DRUG USE?NO PATIENT DENIES ABUSE OR MISSUSED OF ANY MEDICATION DENIES PATIENT DENIES USE OF ANY ILLEGAL SUBSTANCE INCLUDING MARIJUANA OR COCAINE DENIES EXERCISE: , NO REGULAR EXERCISE. LEARNING BARRIERS / SPECIAL NEEDS BARRIERS TO LEARNING?NO HEARING IMPAIRED?NO VISION IMPAIRED?YES COGNITIVELY IMPAIRED?NO :CORRECTIVE LENSES READINESS TO LEARN?YES LEARNING PREFERENCES?YES :DEMONSTRATION/VERBAL INSTRUCTION LEARNING CAPABILITIES PRESENT?YES EMOTIONAL BARRIERS?NO SPECIAL DEVICES?NO RESEARCH ENVIRONMENTAL ENGINEER NEEDED?NO PAIN CLINIC PFS, CLERGY, PUBLIC HEALTH REFERRALS PFS REFERRAL NEEDED?NO CLERGY REFERRAL NEEDED?NO PUBLIC HEALTH REFERRAL NEEDED?NO WAS THE PROVIDER NOTIFIED OF ANY PERTINENT INFO?YES HAS THE PATIENT BEEN EDUCATED REGARDING HIS/HER PLAN OF CARE?YES HAS THE PATIENT BEEN EDUCATED REGARDING PAIN, THE RISK FOR PAIN, THE IMPORTANCE OF EFFECTIVE PAIN MANAGEMENT, AND THE PAIN ASSESSMENT PROCESS?YES LATEX QUESTIONNAIRE LATEX ALLERGY : HAVE YOU EVER DEVELOPED ANY TYPE OF REACTION AFTER HANDLING LATEX PRODUCTS SUCH RUBBER GLOVES, CONDOMS, DIAPHRAGMS, BALLOONS, SOCKS, OR UNDERWEAR?NO LATEX ALLERGY : HAVE YOU EVER DEVELOPED ANY TYPE OF REACTION DURING OR AFTER DENTAL APPOINTMENT, VAGINAL/RECTAL EXAMINATION, SURGICAL PROCEDURE, OR ANY OTHER EXPOSURE?NO DATE ASKED : 08/30/2019 LATEX RISK : HAVE YOU EVER HAD ANY DIFFICULTY BREATHING OR HIVES AFTER EATING OR HANDLING ANY FRUITS, OR VEGETABLES; SUCH KIWI, BANANAS, STONE FRUITS, OR CHESTNUTSNO LATEX RISK : DO YOU HAVE A PREVIOUS PERSONAL HISTORY OF MORE THAN NINE SURGERIES, SPINA BIFIDA, OR REPEATED CATHERIZATIONS? NO LATEX RISK : ARE YOU FREQUENTLY EXPOSED TO LATEX PRODUCTS IN YOUR OCCUPATION?NO CAFFEINE CAFFEINE USE?YES TEA 1 CUP DAILY SODA 1 OCCASIONALLY ADVANCE DIRECTIVE ADVANCE DIRECTIVE DISCUSSED WITH PATIENT:YES STATES SHE HAS NO ADVANCED DIRECTIVES INTERESTED IN HAVING PAPERWORK GNOSTICIST GNOSTICIST NO HOLINESS BELIEFS THAT WOULD IMPACT HEALTH CARE. MARITAL STATUS: .. ALCOHOL SCREENING DID YOU HAVE A DRINK CONTAINING ALCOHOL IN THE PAST YEAR?YES HOW OFTEN DID YOU HAVE SIX OR MORE DRINKS ON ONE OCCASION IN THE PAST YEAR?NEVER (0 POINTS) HOW MANY DRINKS DID YOU HAVE ON A TYPICAL DAY WHEN YOU WERE DRINKING IN THE PAST YEAR?3 OR 4 (1 POINT) HOW OFTEN DID YOU HAVE A DRINK CONTAINING ALCOHOL IN THE PAST YEAR?MONTHLY OR LESS (1 POINT) POINTS2 INTERPRETATIONNEGATIVE OCCUPATION: DISABELED. REVIEWED WITH PATIENT PT REQUEST HCP PAPERWORK AT APPT 07/01/19 1145 NLJ PRE NEW PT CONSULT APPT TELEPHONE CALL COMPLETED 07/01/19 1150 NLJ. HOSPITALIZATION/MAJOR DIAGNOSTIC PROCEDURE CHILDBIRTH KIDNEY INFECTION SURGERIES REVIEW OF SYSTEMS REVIEWED BY: PROVIDER: GAUDENCIO ESCALERA . CONSTITUTIONAL: ANY CHANGE IN YOUR MEDICAL CONDITION? NO . CHILLS NO . FEVER NO . INFECTION: DO YOU HAVE NEW INFECTIONS? NO . DO YOU HAVE HISTORY OF MRSA? NO . MUSCULOSKELETAL: ANY NEW PATTERNS OF PAIN OR NUMBNESS? NO . GASTROENTEROLOGY: ANY NEW CHANGE IN BOWEL CONTROL? NO . GENITOURINARY: ANY NEW CHANGE IN BLADDER CONTROL? NO . IS THERE A CHANCE YOU COULD BE ? NO . HEMATOLOGY/LYMPH: DO YOU TAKE ANY BLOOD THINNERS? (FOR EXAMPLE- COUMADIN, PLAVIX, AGGRENOX, PLATEL, PRADAXA, OR XARELTO) NO . WHEN WAS YOUR LAST DOSE? DATE: TIME: . NEUROLOGY: HAVE YOU FALLEN IN THE PAST 12 MONTHS? YES, PRIOR TO LAST VISIT . ANY NEW EXTREMITY NUMBNESS OR WEAKNESS? NO . CARDIOLOGY: DO YOU HAVE A PACEMAKER OR DEFIBRILLATOR? NO . RESPIRATORY: HAVE YOU BEEN SICK IN THE PAST WEEK? NO . FEVER NO . FLU LIKE SYMPTOMS? NO . COUGH NO . INTEGUMENTARY: DO YOU HAVE ANY RASHES OR OPEN SORES? NO . ALLERGIC/IMMUNO: ARE YOU ALLERGIC TO IV DYE? NO . ANY NEW ALLERGIES? NO . PSYCHIATRIC: DO YOU HAVE THOUGHTS OF HURTING YOURSELF OR SOMEONE ELSE? NO . ARE YOU ABUSED, NEGLECTED, OR IN AN UNSAFE ENVIRONMENT? NO . ENDOCRINOLOGY: ARE YOU DIABETIC? NO . OTHER: DO YOU NEED ANY PRESCRIPTIONS? NOT SURE . IF YES, PLEASE LIST: ____ . ANY NEW PROBLEMS WITH YOUR MEDICATIONS? NO . WHEN DID YOU LAST EAT? ____ . WHEN DID YOU LAST DRINK? ____ . WHAT DID YOU LAST DRINK? ____ . NAME OF PERSON DRIVING YOU HOME? ____ . DO YOU HAVE ANY OTHER QUESTIONS OR CONCERNS NO . VITAL SIGNS WT 162 LBS, HT 64 IN, BMI 27.80 INDEX, BP 150/92 MM HG, HR 82 /MIN, RR 16 /MIN, TEMP 97.4 F, OXYGEN SAT % 100%, SAFE IN ENV? (Y/N) Y, NA INITIALS AW 1013, REVIEWED BY: EM. EXAMINATION GENERAL EXAMINATION: GENERALAWAKE,ALERT ,PLEAASANT . PSYCHAFFECT NORMAL . LUNGS:LUNG SHEPARD ARE CLEAR TO AUSCULTATION BILATERALLY. GOOD MOVEMENT OF AIR . HEART:S1, S2 IN A REGULAR RATE AND RHYTHM. NO SIGNIFICANT MURMURS, RUBS OR GALLOPS NOTED . CERVICAL:TRIGGER POINTS: CERVICAL AND TRAPEZIUS BILAT..PAIN IS AGGREVATED WITH ROJM NECK. ASSESSMENTS MYALGIA OF MUSCLE OF NECK - M79.18 (PRIMARY) TREATMENT MYALGIA OF MUSCLE OF NECK NOTES: TPI NECK BILAT. PROCEDURE CODES FA211 ESTABILISHED PATIENT [facility] CHARGE DISPOSITION & COMMUNICATION FOLLOW UP POST (REASON: TPI NECK BILAT) ELECTRONICALLY SIGNED BY LALI PATTEN ON 10/26/2019 AT 10:39 AM EDT DISCLAIMER : THIS IS A VISIT SUMMARY EXTRACTED FROM THE [facility] [employer] CHART. IT IS NOT A COPY OF THE [employer] PROGRESS NOTE. MTDD
== END ==
LOC: M PAIN 10:15
PROVIDERS: ATTEND Nurse Practitioner Family
DX: M79.18 Myalgia, other site (principal); I10 Essential (primary) hypertension; E07.9 Disorder of thyroid, unspecified; M32.9 Systemic lupus erythematosus, unspecified; M79.7 Fibromyalgia; A69.20 Lyme disease, unspecified; Z79.891 Long term (current) use of opiate analgesic; Z79.899 Other long term (current) drug therapy; Z88.5 Allergy status to narcotic agent

== ENCOUNTER → 2019-11-30 | Outpatient (CLI) | payer OTHER | LOC: M LABSMTC 10:53 | PROVIDERS: ATTEND Anesthesiology | DX: Z01.818 Encounter for other preprocedural examination (principal); Z11.59 Encounter for screening for other viral diseases | CPT/HCPCS: C8903; U0003 ==

== ENCOUNTER → 2019-12-03 | Outpatient (CLI) | payer OTHER ==
[~2019-12-03] MED LIST changes: +BUPIVACAINE HCL 0.25% 10ML VIAL As Ordered ONE; -BUPIVACAINE HCL 0.25% 30 ML VIAL As Ordered ONE; +BUPIVACAINE HCL 0.25% 30ML VIAL As Ordered ONE; -TRIAMCINOLONE ACETONIDE SUSP 40 MG/ML VIAL (J3301) As Ordered ONE
--- NOTE | 2019-12-04 00:53 | ECWPNPC ---
PATIENT NAME: CINDA NUR : 1975 GENDER: FEMALE VISIT DATE: 12/03/2019 DISCHARGE DATE: 12/03/19 1152 VISIT LOCKED DATE TIME: PHYSICIAN: KARO ROY MD RESOURCE: KARO ROY MD REASON FOR APPOINTMENT 1. TPI NECK BILAT. HISTORY OF PRESENT ILLNESS HISTORY OF PRESENT ILLNESS: PAIN THE PATIENT DESCRIBES THE PAIN... FALL RISK SCREENING: SCREENING :NO FALLS REPORTED IN THE LAST YEAR CURRENT MEDICATIONS TAKING METHOTREXATE SODIUM 2.5 MG TABLET 4 TABLETS DIRECTED ORALLY ONCE WEEKLY, NOTES: FRIDAY TAKING FOLIC ACID 1 MG TABLET 1 TABLET ORALLY ONCE A DAY, NOTES: 12/01 TAKING BUPROPION HCL ER (XL) 150 MG TABLET EXTENDED RELEASE 24 HOUR 1 TABLET IN THE MORNING ORALLY ONCE A DAY, NOTES: 12/01 TAKING LEVOTHYROXINE SODIUM 150 MCG TABLET 1 TABLET ON AN EMPTY STOMACH IN THE MORNING ORALLY ONCE A DAY, NOTES: 12/01 TAKING OMEPRAZOLE 40 MG CAPSULE DELAYED RELEASE 1 CAPSULE ORALLY TWICE DAILY, NOTES: 12/01 TAKING VERAPAMIL HCL ER 180 MG TABLET EXTENDED RELEASE 1 TABLET ORALLY ONCE A DAY, NOTES: 12/02 TAKING VYVANSE 70 MG CAPSULE 1 CAPSULE IN THE MORNING ORALLY ONCE A DAY, NOTES: 12/01 TAKING IRON 325 (65 FE) MG TABLET 1 TABLET ORALLY 3 TIMES PER WEEK, NOTES: 12/01 TAKING GABAPENTIN 600 MG TABLET 2 TABLETS ORALLY TWICE DAILY, NOTES: 12/01 TAKING OXYBUTYNIN CHLORIDE 5 MG TABLET 1 TABLET ORALLY DAILY, NOTES: 12/01 TAKING CLONAZEPAM 1 MG TABLET 1-2 TABLETS ORALLY TWICE DAILY NEEDED, NOTES: 12/01 TAKING PRAZOSIN HCL 2 MG CAPSULE 1 CAPSULE AT BEDTIME ORALLY BEFORE BEDTIME, NOTES: 12/01 TAKING TRAZODONE HCL 50 MG TABLET 1- 1/2 TABLETS AT BEDTIME ORALLY QHS PRN, NOTES: 12/01 TAKING PLAQUENIL 200 MG TABLET 2 TABLETS ORALLY BID, NOTES: 12/01 TAKING DEPAKOTE 1 CAP ORALLY 500MG BID, NOTES: 12/01 TAKING MAXALT-COPY CAMERA OPERATOR 10 MG TABLET DISINTEGRATING 1 TABLET ORALLY ONCE DAILY NEEDED, NOTES: 2 WEEKS TAKING DULOXETINE HCL 30 MG CAPSULE DELAYED RELEASE PARTICLES 1 CAPSULE ORALLY TWICE A DAY, NOTES: 5/14 9P TAKING REXULTI 1 MG TABLET 1 TABLET ORALLY ONCE A DAY, NOTES: 09/29 14 DAY STARTER PACK (0.5 MG - 1 MG) TAKING CYCLOBENZAPRINE HCL 10 MG TABLET 1 TABLET AT BEDTIME NEEDED ORALLY ONCE A DAY, NOTES: 12/01 9P TAKING MAY USE MEDICAL MARIJUANA , NOTES: 12/01 9P NOT-TAKING MIRALAX - PACKET 1 PACKET MIXED WITH 8 OUNCES OF FLUID ORALLY 17 GRAMS IN OJ PRN ONCE A DAY NOT-TAKING CARISOPRODOL 250 MG TABLET 1-3 DAILY ORAL NEEDED NOT-TAKING CALCIUM + D3 600-800 MG-UNIT TABLET 1 TABLET WITH A MEAL ORALLY ONCE A DAY MAGNESIUM, ZINC NOT-TAKING VITAMIN C 500 MG CAPSULE DIRECTED ORALLY NOT-TAKING MULTI VITAMIN DAILY - TABLET 1 TABLET ORALLY ONCE A DAY NOT-TAKING HAIR SKIN AND NAILS FORMULA - TABLET DIRECTED ORALLY NOT-TAKING DOXYCYCLINE MONOHYDRATE 100 MG CAPSULE ORAL NOT-TAKING CULTURELLE IMMUNITY SUPPORT - CAPSULE ORAL MEDICATION LIST REVIEWED AND RECONCILED WITH THE PATIENT PAST MEDICAL HISTORY ARTHRITIS DEPRESSION ANXIETY HEADACHE MIGRAINE HEADACHES HYPERTENSION PSYCHIATRIC DISORDER THYROID DISEASE INSOMNIA PTSD FIBROMYALGIA ESOPHAGEAL REFLUX NIGHT CLEVELAND SYSTEMIC LUPUS ERYTHATOSUS LYME DISEASE PER 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 1 SON(S) , 2 DAUGHTER(S) - HEALTHY. MOTHER AND FATHER HEALTHYGRANDMOTHER STROKE, DEMENTIA. SOCIAL HISTORY GENERAL: TOBACCO USE ARE YOU A:NONSMOKER LATEX QUESTIONNAIRE LATEX ALLERGY : HAVE YOU EVER DEVELOPED ANY TYPE OF REACTION AFTER HANDLING LATEX PRODUCTS SUCH RUBBER GLOVES, CONDOMS, DIAPHRAGMS, BALLOONS, SOCKS, OR UNDERWEAR?NO LATEX ALLERGY : HAVE YOU EVER DEVELOPED ANY TYPE OF REACTION DURING OR AFTER DENTAL APPOINTMENT, VAGINAL/RECTAL EXAMINATION, SURGICAL PROCEDURE, OR ANY OTHER EXPOSURE?NO LATEX RISK : HAVE YOU EVER HAD ANY DIFFICULTY BREATHING OR HIVES AFTER EATING OR HANDLING ANY FRUITS, OR VEGETABLES; SUCH KIWI, BANANAS, STONE FRUITS, OR CHESTNUTSNO LATEX RISK : DO YOU HAVE A PREVIOUS PERSONAL HISTORY OF MORE THAN NINE SURGERIES, SPINA BIFIDA, OR REPEATED CATHERIZATIONS? NO LATEX RISK : ARE YOU FREQUENTLY EXPOSED TO LATEX PRODUCTS IN YOUR OCCUPATION?NO DATE ASKED : 12/03/2019 ALCOHOL SCREENING DID YOU HAVE A DRINK CONTAINING ALCOHOL IN THE PAST YEAR?YES HOW OFTEN DID YOU HAVE SIX OR MORE DRINKS ON ONE OCCASION IN THE PAST YEAR?NEVER (0 POINTS) HOW MANY DRINKS DID YOU HAVE ON A TYPICAL DAY WHEN YOU WERE DRINKING IN THE PAST YEAR?3 OR 4 (1 POINT) HOW OFTEN DID YOU HAVE A DRINK CONTAINING ALCOHOL IN THE PAST YEAR?MONTHLY OR LESS (1 POINT) POINTS2 INTERPRETATIONNEGATIVE RECREATIONAL DRUG USE DRUG USE?NO PATIENT DENIES ABUSE OR MISSUSED OF ANY MEDICATION DENIES PATIENT DENIES USE OF ANY ILLEGAL SUBSTANCE INCLUDING MARIJUANA OR COCAINE DENIES CAFFEINE CAFFEINE USE?YES TEA 1 CUP DAILY SODA 1 OCCASIONALLY MORMON MORMON NO NONDENOMINATIONAL BELIEFS THAT WOULD IMPACT HEALTH CARE. LANGUAGE LANGUAGES SPOKEN:[place] EDUCATION LEVEL OF EDUCATION:HIGH SCHOOL LEARNING BARRIERS / SPECIAL NEEDS BARRIERS TO LEARNING?NO HEARING IMPAIRED?NO VISION IMPAIRED?YES COGNITIVELY IMPAIRED?NO :CORRECTIVE LENSES READINESS TO LEARN?YES LEARNING PREFERENCES?YES :DEMONSTRATION/VERBAL INSTRUCTION LEARNING CAPABILITIES PRESENT?YES EMOTIONAL BARRIERS?NO SPECIAL DEVICES?NO BACK END WEB DEVELOPER NEEDED?NO DOMESTIC VIOLENCE STATUS: DO YOU FEEL SAFE IN YOUR ENVIRONMENT?NO OCCUPATION: DISABELED. DIET: REGULAR. EXERCISE: , NO REGULAR EXERCISE. MARITAL STATUS: .. OTHERS AT HOME: CHILDREN. NEW PATIENT PAIN DIARY TODAY'S VISIT 12/03/2019 PATIENT DESCRIBES PAIN :ACHING, IT COMES AND GOES, THROBBING FROM 0-10, WHAT LEVEL IS YOUR PAIN TODAY?7 PRECIPITATING FACTORS ACTIVITY ALLEVIATING FACTORS HEAT, MEDS IMPACT ON FUNCTION YES PAIN CLINIC PFS, CLERGY, PUBLIC HEALTH REFERRALS PFS REFERRAL NEEDED?NO CLERGY REFERRAL NEEDED?NO PUBLIC HEALTH REFERRAL NEEDED?NO WAS THE PROVIDER NOTIFIED OF ANY PERTINENT INFO?YES HAS THE PATIENT BEEN EDUCATED REGARDING HIS/HER PLAN OF CARE?YES HAS THE PATIENT BEEN EDUCATED REGARDING PAIN, THE RISK FOR PAIN, THE IMPORTANCE OF EFFECTIVE PAIN MANAGEMENT, AND THE PAIN ASSESSMENT PROCESS?YES HOUSING: OWNS HOME. ADVANCE DIRECTIVE ADVANCE DIRECTIVE DISCUSSED WITH PATIENT:YES STATES SHE HAS NO ADVANCED DIRECTIVES INTERESTED IN HAVING PAPERWORK HOSPITALIZATION/MAJOR DIAGNOSTIC PROCEDURE CHILDBIRTH KIDNEY INFECTION SURGERIES REVIEW OF SYSTEMS REVIEWED BY: PROVIDER: KARO ROY MD . CONSTITUTIONAL: ANY CHANGE IN YOUR MEDICAL CONDITION? NO . CHILLS NO . FEVER NO . INFECTION: DO YOU HAVE NEW INFECTIONS? NO . DO YOU HAVE HISTORY OF MRSA? NO . MUSCULOSKELETAL: ANY NEW PATTERNS OF PAIN OR NUMBNESS? NO . GASTROENTEROLOGY: ANY NEW CHANGE IN BOWEL CONTROL? NO . GENITOURINARY: ANY NEW CHANGE IN BLADDER CONTROL? NO . IS THERE A CHANCE YOU COULD BE ? NO . HEMATOLOGY/LYMPH: DO YOU TAKE ANY BLOOD THINNERS? (FOR EXAMPLE- COUMADIN, PLAVIX, AGGRENOX, PLATEL, PRADAXA, OR XARELTO) NO . WHEN WAS YOUR LAST DOSE? DATE: TIME: . NEUROLOGY: HAVE YOU FALLEN IN THE PAST 12 MONTHS? YES, PT STATES THAT SHE WAS HOME, SPRAINED ANKLE, BRUISING, NO REPORT TO ED . ANY NEW EXTREMITY NUMBNESS OR WEAKNESS? NO . CARDIOLOGY: DO YOU HAVE A PACEMAKER OR DEFIBRILLATOR? NO . RESPIRATORY: HAVE YOU BEEN SICK IN THE PAST WEEK? NO . FEVER NO . FLU LIKE SYMPTOMS? NO . COUGH NO . INTEGUMENTARY: DO YOU HAVE ANY RASHES OR OPEN SORES? NO . ALLERGIC/IMMUNO: ARE YOU ALLERGIC TO IV DYE? NO . ANY NEW ALLERGIES? NO . PSYCHIATRIC: DO YOU HAVE THOUGHTS OF HURTING YOURSELF OR SOMEONE ELSE? NO . ARE YOU ABUSED, NEGLECTED, OR IN AN UNSAFE ENVIRONMENT? NO . ENDOCRINOLOGY: ARE YOU DIABETIC? NO . OTHER: DO YOU NEED ANY PRESCRIPTIONS? NO . IF YES, PLEASE LIST: ____ . ANY NEW PROBLEMS WITH YOUR MEDICATIONS? NO . WHEN DID YOU LAST EAT? 12/01 6P . WHEN DID YOU LAST DRINK? 12/02 10A . WHAT DID YOU LAST DRINK? BOYFRIEND- RYAN HIGGINS . NAME OF PERSON DRIVING YOU HOME? ____ . DO YOU HAVE ANY OTHER QUESTIONS OR CONCERNS NO . VITAL SIGNS WT 159.2 LBS, HT 64 IN, BMI 27.32 INDEX, BP 126/75 MM HG, HR 66 /MIN, RR 18 /MIN, TEMP 97.3 F, OXYGEN SAT % 95%, SAFE IN ENV? (Y/N) Y, NA INITIALS AW 1057, REVIEWED BY: DS. ASSESSMENTS MYALGIA, OTHER SITE - M79.18 (PRIMARY) PROCEDURES PN TRIGGER POINT INJECTION NO STEROIDS DATE OF PROCEDURE : PRE PROCEDURE DIAGNOSIS 1. MYALGIA 2. PAIN AT BILATERAL NECK AREA POST PROCEDURE DIAGNOSIS 1. MYALGIA 2. PAIN AT BILATERAL NECK AREA PROCEDURE TRIGGER POINT INJECTION AT BILATERAL NECK AREA SURGEON DR. KARO ROY WEB DEVELOPMENT INTERN NONE ANESTHESIA LOCAL PRE PROCEDURE NOTE 44-YEAR-OLD PATIENT WITH HISTORY OF CHRONIC PAIN AT RIGHT AND LEFT NECK AREA. I EVALUATED THE PATIENT AND REVIEWED THE CHART. THERE IS EVIDENCE OF BANDS OF TISSUE WITH RESTRICTION OF MOVEMENT AND PRESENCE OF TRIGGER POINT AT THE RIGHT AND LEFT NECK AREA. I WENT OVER THE RISKS, ALTERNATIVES, AND BENEFITS ASSOCIATED WITH THIS PROCEDURE. THE PATIENT WOULD LIKE TO PROCEED AND GAVE CONSENT TO PERFORM THE PROCEDURE. THE PATIENT DENIES UNEXPLAINABLE WEIGHT LOSS, FEVER, CHILLS, OR NEW CHANGES IN URINARY OR BOWEL CONTROL. THE PATIENT WAS COVID-19 NEGATIVE DESCRIPTION OF PROCEDURE THE PATIENT WAS BROUGHT TO THE PROCEDURE ROOM AND PLACED IN THE SITTING POSITION. THE AREA WAS CLEANED WITH ALCOHOL. THE PROCEDURE WAS DONE USING ASEPTIC STERILE TECHNIQUES. I CHECKED LATERALITY AND THE LEVEL WHERE THE PROCEDURE WAS GOING TO BE PERFORMED WITH THE PATIENT AND THE SUPPORTING STAFF AT THE MOMENT OF THE TIME OUT IN THE PROCEDURE ROOM. USING A 25-GAUGE NEEDLE, TRIGGER POINTS WERE INJECTED INTO THE RIGHT AND LEFT NECK AREA WITH A TOTAL OF 40 ML OF BUPIVACAINE 0.25%. AGREED WITH THE PATIENT THE PROCEDURE WAS DONE WITHOUT STEROIDS. THERE WAS NO EVIDENCE OF BLOOD, PARESTHESIA OR CEREBROSPINAL FLUID DURING THE PROCEDURE. THE PATIENT WAS SENT TO THE RECOVERY ROOM. THE PATIENT WAS MOVING THE EXTREMITIES AND DOING WELL. THERE WAS NO COMPLICATION DURING THE PROCEDURE POST PROCEDURE NOTE THE PATIENT WILL BE SEEN IN A FOLLOW UP IN THE NEXT FEW WEEKS. I AM LOOKING FOR LONG LASTING PAIN RELIEF FOR THE PATIENT WITH THIS INJECTION. INSTRUCTIONS WERE GIVEN, QUESTIONS WERE ANSWERED, AND THE PATIENT EXPRESSED UNDERSTANDING AND AGREED WITH THE PLAN. I, ROS HALL, DOCUMENTED THE ABOVE INFORMATION ACTING A SCRIBE FOR DR. ROY. I HAVE REVIEWED THE ABOVE DOCUMENT, WRITTEN BY ROS HALL, PARALEGAL INSTRUCTOR, AND I VERIFY THAT IT IS ACCURATE PROCEDURE CODES 18874 INJ TRIGGER POINT 07/22 MUSCL DISPOSITION & COMMUNICATION FOLLOW UP F/UP WITH QUALITY ENGINEER (REASON: POST TPI-CASSIDY NECK) ELECTRONICALLY SIGNED BY KARO ROY MD, MD ON 12/03/2019 AT 05:04 PM EDT DISCLAIMER : THIS IS A VISIT SUMMARY EXTRACTED FROM THE [employer] CHART. IT IS NOT A COPY OF THE [employer] PROGRESS NOTE. LURDES
== END ==
LOC: M PAIN 11:15
PROVIDERS: ATTEND Anesthesiology
DX: M79.18 Myalgia, other site (principal); M54.2 Cervicalgia; I10 Essential (primary) hypertension; Z79.899 Other long term (current) drug therapy; Z88.5 Allergy status to narcotic agent

== ENCOUNTER → 2019-12-16 | Outpatient (CLI) | payer OTHER ==
--- NOTE | 2019-12-21 05:28 | ECWPNPC ---
PATIENT NAME: CINDA NUR : 1975 GENDER: FEMALE VISIT DATE: 12/16/2019 DISCHARGE DATE: 12/16/19 1502 VISIT LOCKED DATE TIME: PHYSICIAN: GAUDENCIO LEZAMA RESOURCE: GAUDENCIO LEZAMA REASON FOR APPOINTMENT 1. POST TPI; [phone] PAT DONE HISTORY OF PRESENT ILLNESS GENERAL: THIS IS A TELEMED VISIT VIA ZOOM WHICH PATIENT IS AGREEABLE TO DO TODAY. THIS IS A POST PROCEDURE FOLLOW-UP. HAD TRIGGER POINT INJECTIONS, BILATERAL NECK ON 12/03/2019. REPORTING MARKED REDUCTION IN PAIN FOR 2 WEEKS AND THEN PAIN HAS GRADUALLY RETURNED TO BASELINE. SUFFERS FROM CHRONIC NECK AND LOW BACK PAIN. HISTORY OF LUPUS. DISCUSSED TREATMENT PLAN. -. FALL RISK SCREENING: SCREENING :TWO OR MORE FALLS WITHOUT INJURY IN THE PAST YEAR SLIPPED ON ICE PAIN SCREENING: PATIENT HAS A COMPLAINT OF ACUTE OR CHRONIC PAIN :YES LOCATION OF PAIN:NECK, LOW BACK INTENSITY OF PAIN (SCALE OF 1 TO 10):6 WHAT DOES YOUR PAIN FEEL LIKE:ACHING, BURNING, CONTINOUS, TENDER, THROBBING, SORE DURATION:CONTINOUS PAIN IS INCREASED BY:ACTIVITIES PAIN IS DECREASED BY:SITTING, OTHERS RESTING NURSING NOTE: -. PAIN CENTER INTAKE QUESTIONS: NOTES: PT STATES THAT SHE ONLY HAD APPROXIMATELY 1 WEEK OF RELIEF FROM TRIGGER POINT INJECTIONS OF BILATERAL NECK. DO YOU HAVE A HISTORY OF MRSA? :NO DO YOU TAKE A BLOOD THINNERS? :NO DO YOU HAVE ANY BLEEDING DISORDERS? :NO ANY NEW NUMBNESS OR WEAKNESS IN YOUR LEGS OR ARMS? :YES PT STATES THAT SHE HAS TINGLING AND SLIGHT WEAKNESS IN FINGERS. PT STATES THAT SHE HAS RIGHT THIGH NUMBNESS. ANY PACEMAKER,DEFIBRILLATOR, OR DORSAL COLUMN STIMULATOR? :NO DO YOU HAVE ANY RASHES OR OPEN SORES? :NO ARE YOU ALLERGIC TO IV DYE? :NO ARE YOU DIABETIC? :NO ANY NEW PROBLEMS WITH YOUR MEDICATIONS? :NO HAVE YOU RECEIVED A VACCINE IN THE PAST 30 DAYS? :NO DO YOU PLAN TO RECEIVE A VACCINE IN THE NEXT 21 DAYS? :NO DO YOU NEED ANY PRESCRIPTION? :NO DO YOU TAKE ANY IMMUNOSUPPRESSIVE MEDICATIONS? :YES METHOTRAXATE AND PLAQUENIL CURRENT MEDICATIONS TAKING FOLIC ACID 1 MG TABLET 1 TABLET ORALLY ONCE A DAY TAKING BUPROPION HCL ER (XL) 150 MG TABLET EXTENDED RELEASE 24 HOUR 1 TABLET IN THE MORNING ORALLY ONCE A DAY TAKING LEVOTHYROXINE SODIUM 150 MCG TABLET 1 TABLET ON AN EMPTY STOMACH IN THE MORNING ORALLY ONCE A DAY TAKING OMEPRAZOLE 40 MG CAPSULE DELAYED RELEASE 1 CAPSULE ORALLY TWICE DAILY TAKING VERAPAMIL HCL ER 180 MG TABLET EXTENDED RELEASE 1 TABLET ORALLY ONCE A DAY TAKING VYVANSE 70 MG CAPSULE 1 CAPSULE IN THE MORNING ORALLY ONCE A DAY TAKING IRON 325 (65 FE) MG TABLET 1 TABLET ORALLY 3 TIMES PER WEEK TAKING GABAPENTIN 600 MG TABLET 2 TABLETS ORALLY TWICE DAILY TAKING OXYBUTYNIN CHLORIDE 5 MG TABLET 1 TABLET ORALLY DAILY TAKING CLONAZEPAM 1 MG TABLET 1-2 TABLETS ORALLY TWICE DAILY NEEDED TAKING PRAZOSIN HCL 2 MG CAPSULE 1 CAPSULE AT BEDTIME ORALLY BEFORE BEDTIME TAKING TRAZODONE HCL 50 MG TABLET 1- 1/2 TABLETS AT BEDTIME ORALLY QHS PRN TAKING PLAQUENIL 200 MG TABLET 2 TABLETS ORALLY BID TAKING DEPAKOTE 1 CAP ORALLY 500MG BID TAKING MAXALT-YOUTH SUPPORT WORKER 10 MG TABLET DISINTEGRATING 1 TABLET ORALLY ONCE DAILY NEEDED TAKING DULOXETINE HCL 30 MG CAPSULE DELAYED RELEASE PARTICLES 1 CAPSULE ORALLY TWICE A DAY TAKING REXULTI 1 MG TABLET 1 TABLET ORALLY ONCE A DAY TAKING CYCLOBENZAPRINE HCL 10 MG TABLET 1 TABLET AT BEDTIME NEEDED ORALLY ONCE A DAY TAKING MAY USE MEDICAL MARIJUANA TAKING METHOTREXATE SODIUM 2.5 MG TABLET 4 TABLETS DIRECTED ORALLY ONCE WEEKLY NOT-TAKING MIRALAX - PACKET 1 PACKET MIXED WITH 8 OUNCES OF FLUID ORALLY 17 GRAMS IN OJ PRN ONCE A DAY NOT-TAKING CARISOPRODOL 250 MG TABLET 1-3 DAILY ORAL NEEDED NOT-TAKING CALCIUM + D3 600-800 MG-UNIT TABLET 1 TABLET WITH A MEAL ORALLY ONCE A DAY MAGNESIUM, ZINC NOT-TAKING VITAMIN C 500 MG CAPSULE DIRECTED ORALLY NOT-TAKING MULTI VITAMIN DAILY - TABLET 1 TABLET ORALLY ONCE A DAY NOT-TAKING HAIR SKIN AND NAILS FORMULA - TABLET DIRECTED ORALLY NOT-TAKING DOXYCYCLINE MONOHYDRATE 100 MG CAPSULE ORAL NOT-TAKING CULTURELLE IMMUNITY SUPPORT - CAPSULE ORAL MEDICATION LIST REVIEWED AND RECONCILED WITH THE PATIENT PAST MEDICAL HISTORY ARTHRITIS DEPRESSION ANXIETY HEADACHE MIGRAINE HEADACHES HYPERTENSION PSYCHIATRIC DISORDER THYROID DISEASE INSOMNIA PTSD FIBROMYALGIA ESOPHAGEAL REFLUX NIGHT [place] SYSTEMIC LUPUS ERYTHATOSUS LYME DISEASE PER 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 1 SON(S) , 2 DAUGHTER(S) - HEALTHY. MOTHER AND FATHER HEALTHYGRANDMOTHER STROKE, DEMENTIA. SOCIAL HISTORY GENERAL: TOBACCO USE ARE YOU A:NONSMOKER LATEX QUESTIONNAIRE LATEX ALLERGY : HAVE YOU EVER DEVELOPED ANY TYPE OF REACTION AFTER HANDLING LATEX PRODUCTS SUCH RUBBER GLOVES, CONDOMS, DIAPHRAGMS, BALLOONS, SOCKS, OR UNDERWEAR?NO LATEX ALLERGY : HAVE YOU EVER DEVELOPED ANY TYPE OF REACTION DURING OR AFTER DENTAL APPOINTMENT, VAGINAL/RECTAL EXAMINATION, SURGICAL PROCEDURE, OR ANY OTHER EXPOSURE?NO LATEX RISK : HAVE YOU EVER HAD ANY DIFFICULTY BREATHING OR HIVES AFTER EATING OR HANDLING ANY FRUITS, OR VEGETABLES; SUCH KIWI, BANANAS, STONE FRUITS, OR CHESTNUTSNO LATEX RISK : DO YOU HAVE A PREVIOUS PERSONAL HISTORY OF MORE THAN NINE SURGERIES, SPINA BIFIDA, OR REPEATED CATHERIZATIONS? NO LATEX RISK : ARE YOU FREQUENTLY EXPOSED TO LATEX PRODUCTS IN YOUR OCCUPATION?NO DATE ASKED : 12/15/2019 ALCOHOL SCREENING DID YOU HAVE A DRINK CONTAINING ALCOHOL IN THE PAST YEAR?YES HOW OFTEN DID YOU HAVE SIX OR MORE DRINKS ON ONE OCCASION IN THE PAST YEAR?NEVER (0 POINTS) HOW MANY DRINKS DID YOU HAVE ON A TYPICAL DAY WHEN YOU WERE DRINKING IN THE PAST YEAR?3 OR 4 (1 POINT) HOW OFTEN DID YOU HAVE A DRINK CONTAINING ALCOHOL IN THE PAST YEAR?MONTHLY OR LESS (1 POINT) POINTS2 INTERPRETATIONNEGATIVE RECREATIONAL DRUG USE DRUG USE?NO PATIENT DENIES ABUSE OR MISSUSED OF ANY MEDICATION DENIES PATIENT DENIES USE OF ANY ILLEGAL SUBSTANCE INCLUDING MARIJUANA OR COCAINE DENIES CAFFEINE CAFFEINE USE?YES TEA 1 CUP DAILY SODA 1 OCCASIONALLY CONGREGATION CONGREGATION NO RELIGION BELIEFS THAT WOULD IMPACT HEALTH CARE. LANGUAGE LANGUAGES SPOKEN:[place] EDUCATION LEVEL OF EDUCATION:HIGH SCHOOL LEARNING BARRIERS / SPECIAL NEEDS BARRIERS TO LEARNING?NO HEARING IMPAIRED?NO VISION IMPAIRED?YES COGNITIVELY IMPAIRED?NO :CORRECTIVE LENSES READINESS TO LEARN?YES LEARNING PREFERENCES?YES :DEMONSTRATION/VERBAL INSTRUCTION LEARNING CAPABILITIES PRESENT?YES EMOTIONAL BARRIERS?NO SPECIAL DEVICES?NO REAL ESTATE SERVICES ADMINISTRATOR NEEDED?NO DOMESTIC VIOLENCE STATUS: DO YOU FEEL SAFE IN YOUR ENVIRONMENT?NO OCCUPATION: DISABELED. DIET: REGULAR. EXERCISE: , NO REGULAR EXERCISE. MARITAL STATUS: .. OTHERS AT HOME: CHILDREN. NEW PATIENT PAIN DIARY PATIENT DESCRIBES PAIN :ACHING, IT COMES AND GOES, THROBBING FROM 0-10, WHAT LEVEL IS YOUR PAIN TODAY?7 PRECIPITATING FACTORS ACTIVITY ALLEVIATING FACTORS HEAT, MEDS IMPACT ON FUNCTION YES PAIN CLINIC PFS, CLERGY, PUBLIC HEALTH REFERRALS PFS REFERRAL NEEDED?NO CLERGY REFERRAL NEEDED?NO PUBLIC HEALTH REFERRAL NEEDED?NO WAS THE PROVIDER NOTIFIED OF ANY PERTINENT INFO?YES HAS THE PATIENT BEEN EDUCATED REGARDING HIS/HER PLAN OF CARE?YES HAS THE PATIENT BEEN EDUCATED REGARDING PAIN, THE RISK FOR PAIN, THE IMPORTANCE OF EFFECTIVE PAIN MANAGEMENT, AND THE PAIN ASSESSMENT PROCESS?YES HOUSING: OWNS HOME. ADVANCE DIRECTIVE ADVANCE DIRECTIVE DISCUSSED WITH PATIENT:YES STATES SHE HAS NO ADVANCED DIRECTIVES INTERESTED IN HAVING PAPERWORK HOSPITALIZATION/MAJOR DIAGNOSTIC PROCEDURE CHILDBIRTH KIDNEY INFECTION SURGERIES REVIEW OF SYSTEMS CONSTITUTIONAL: ANY RECENT FEVER OR ILLNESS NO . CHILLS NO . GASTROENTEROLOGY: BOWEL INCONTINENCE NO . ANY NEW CHANGE IN BOWEL CONTROL? NO . ABDOMINAL PAIN NO . CONSTIPATION NO . GENITOURINARY: ANY NEW CHANGE IN BLADDER CONTROL? NO . IS THERE A CHANCE YOU COULD BE ? NO . URINARY INCONTINENCE NO . CARDIOLOGY: CHEST PRESSURE NO . CHEST PAIN NO . RESPIRATORY: COUGH NO . SHORTNESS OF BREATH NO . ASSESSMENTS MYALGIA, OTHER SITE - M79.18 (PRIMARY) TREATMENT MYALGIA, OTHER SITE NOTES: TRIGGER POINTS BILATERAL LOW BACK START PHYSICAL THERAPY 2 TIMES A WEEK X6 WEEKS FOR MYOFASCIAL RELEASE NECK/LOW BACK. FOLLOW-UP AFTER PHYSICAL THERAPY. DISCUSSED TREATMENT OPTIONS. TOTAL TIME SPENT DURING TELEMED VISIT WAS APPROXIMATELY 12 MINUTES. V/S NOT DONE DUE TO VIRTUAL APPOINTMENT PT ORDER WAS FAXED TO [facility] AT [phone] AND CONFIRMATION RECEIVED. PREVENTIVE MEDICINE PAIN CLINIC TEACHING: PROCEDURE TEACHING PATIENT STATED SHE WAS FAMILIAR WITH TRIGGER POINT INJECTIONS, PRE-PROCEDURE INSTRUCTIONS REVIEWED WITH PATIENT AND SHE VERBALIZED UNDERSTANDING. INSTRUCTIONS MAILED TO PATIENT. AD. DISPOSITION & COMMUNICATION FOLLOW UP POST, 6 WEEKS (REASON: TRIGGER POINTS BILATERAL LOW BACK) ELECTRONICALLY SIGNED BY LALI PATTEN ON 12/20/2019 AT 01:53 PM EDT DISCLAIMER : THIS IS A VISIT SUMMARY EXTRACTED FROM THE [facility] CHART. IT IS NOT A COPY OF THE [employer] PROGRESS NOTE. MTDD
== END ==
LOC: M PAIN 13:00
PROVIDERS: ATTEND Nurse Practitioner Family
DX: M79.18 Myalgia, other site (principal)

== ENCOUNTER → 2020-01-03 | Outpatient (CLI) | payer OTHER | LOC: M LABSMTC 11:37 | PROVIDERS: ATTEND Anesthesiology | DX: Z03.818 Encounter for observation for suspected exposure to other biological agents ruled out (principal); Z11.59 Encounter for screening for other viral diseases | CPT/HCPCS: C9803; U0003 ==

== ENCOUNTER → 2020-01-06 | Outpatient (CLI) | payer OTHER ==
[~2020-01-06] MED LIST changes: +dexameTHASONE 10MG/1ML VIAL PRES.FREE (J1100 PER 1MG) As Ordered ONE
--- NOTE | 2020-01-11 02:18 | ECWPNPC ---
PATIENT NAME: CINDA NUR : 1975 GENDER: FEMALE VISIT DATE: 01/06/2020 DISCHARGE DATE: 01/06/20 1250 VISIT LOCKED DATE TIME: PHYSICIAN: KARO ROY MD RESOURCE: KARO ROY MD REASON FOR APPOINTMENT 1. TRIGGER POINTS BILATERAL LOW BACK PAT DONE HISTORY OF PRESENT ILLNESS GENERAL: -. FALL RISK SCREENING: SCREENING :TWO OR MORE FALLS WITHOUT INJURY IN THE PAST YEAR PAIN SCREENING: PATIENT HAS A COMPLAINT OF ACUTE OR CHRONIC PAIN :YES LOCATION OF PAIN:LOW BACK INTENSITY OF PAIN (SCALE OF 1 TO 10):7 WHAT DOES YOUR PAIN FEEL LIKE:ACHING, BURNING, CONTINOUS, THROBBING, SORE, SHOOTING DURATION:ONLY WITH SPECIFIC ACTIVITIES PAIN IS INCREASED BY:ACTIVITIES PAIN IS DECREASED BY:OTHERS LAYING DOWN NURSING NOTE: -. PAIN CENTER INTAKE QUESTIONS: DO YOU HAVE A HISTORY OF MRSA? :NO DO YOU TAKE A BLOOD THINNERS? :NO DO YOU HAVE ANY BLEEDING DISORDERS? :NO ANY NEW NUMBNESS OR WEAKNESS IN YOUR LEGS OR ARMS? :NO ANY PACEMAKER,DEFIBRILLATOR, OR DORSAL COLUMN STIMULATOR? :NO DO YOU HAVE ANY RASHES OR OPEN SORES? :NO ARE YOU ALLERGIC TO IV DYE? :NO ARE YOU DIABETIC? :NO ANY NEW PROBLEMS WITH YOUR MEDICATIONS? :NO HAVE YOU RECEIVED A VACCINE IN THE PAST 30 DAYS? :NO DO YOU PLAN TO RECEIVE A VACCINE IN THE NEXT 21 DAYS? :NO DO YOU TAKE ANY IMMUNOSUPPRESSIVE MEDICATIONS? :YES METHOTREXATE ANY HISTORY OF SEIZURES? :NO ANY HISTORY OF CARDIAC ISSUES OR EVENTS? :NO DO YOU HAVE SLEEP APNEA? : NO. ANY RECENT HEAD INJURY? :NO DO YOU HAVE ANY NEW INFECTIONS? :NO IS THERE A CHANCE YOU COULD BE ? :NO ARE YOU BREAST FEEDING? :NO WHEN DID YOU LAST EAT? : 01/04 1730 WHEN DID YOU LAST DRINK? : 01/04 2200 WHAT DID YOU LAST DRINK? : WATER NAME OF PERSON DRIVING YOU HOME? : -BOYFRIEND LOKESH DO YOU HAVE ANY OTHER QUESTIONS OR CONCERNS? : NO CURRENT MEDICATIONS TAKING FOLIC ACID 1 MG TABLET 1 TABLET ORALLY ONCE A DAY, NOTES: 01/04 900 TAKING BUPROPION HCL ER (XL) 150 MG TABLET EXTENDED RELEASE 24 HOUR 1 TABLET IN THE MORNING ORALLY ONCE A DAY, NOTES: 01/04 900 TAKING LEVOTHYROXINE SODIUM 150 MCG TABLET 1 TABLET ON AN EMPTY STOMACH IN THE MORNING ORALLY ONCE A DAY, NOTES: 01/04 900 TAKING OMEPRAZOLE 40 MG CAPSULE DELAYED RELEASE 1 CAPSULE ORALLY TWICE DAILY, NOTES: 01/04 2200 TAKING VERAPAMIL HCL ER 180 MG TABLET EXTENDED RELEASE 1 TABLET ORALLY ONCE A DAY, NOTES: 01/04 TAKING VYVANSE 70 MG CAPSULE 1 CAPSULE IN THE MORNING ORALLY ONCE A DAY, NOTES: 01/04 900 TAKING IRON 325 (65 FE) MG TABLET 1 TABLET ORALLY 3 TIMES PER WEEK, NOTES: 01/03 TAKING GABAPENTIN 600 MG TABLET 2 TABLETS ORALLY TWICE DAILY, NOTES: 01/04 2200 TAKING OXYBUTYNIN CHLORIDE 5 MG TABLET 1 TABLET ORALLY DAILY, NOTES: 01/04 2200 TAKING CLONAZEPAM 1 MG TABLET 1-2 TABLETS ORALLY TWICE DAILY NEEDED, NOTES: 01/04 2200 TAKING PRAZOSIN HCL 2 MG CAPSULE 1 CAPSULE AT BEDTIME ORALLY BEFORE BEDTIME, NOTES: 01/04 2200 TAKING TRAZODONE HCL 50 MG TABLET 1- 1/2 TABLETS AT BEDTIME ORALLY QHS PRN, NOTES: 01/03 2200 TAKING PLAQUENIL 200 MG TABLET 2 TABLETS ORALLY BID, NOTES: 01/04 2200 TAKING DEPAKOTE 1 CAP ORALLY 500MG BID, NOTES: 01/04 2200 TAKING MAXALT-EAP CLINICIAN 10 MG TABLET DISINTEGRATING 1 TABLET ORALLY ONCE DAILY NEEDED, NOTES: 2 WEEKS AGO TAKING DULOXETINE HCL 30 MG CAPSULE DELAYED RELEASE PARTICLES 1 CAPSULE ORALLY TWICE A DAY, NOTES: 01/04 2200 TAKING REXULTI 1 MG TABLET 1 TABLET ORALLY ONCE A DAY, NOTES: 01/04 900 TAKING CYCLOBENZAPRINE HCL 10 MG TABLET 1 TABLET AT BEDTIME NEEDED ORALLY ONCE A DAY, NOTES: 01/04 2200 TAKING MAY USE MEDICAL MARIJUANA , NOTES: FEW WEEKS AGO TAKING METHOTREXATE SODIUM 2.5 MG TABLET 4 TABLETS DIRECTED ORALLY ONCE WEEKLY, NOTES: 01/01 TAKING MULTI VITAMIN DAILY - TABLET 1 TABLET ORALLY ONCE A DAY, NOTES: 01/04 900 NOT-TAKING MIRALAX - PACKET 1 PACKET MIXED WITH 8 OUNCES OF FLUID ORALLY 17 GRAMS IN OJ PRN ONCE A DAY NOT-TAKING CARISOPRODOL 250 MG TABLET 1-3 DAILY ORAL NEEDED NOT-TAKING CALCIUM + D3 600-800 MG-UNIT TABLET 1 TABLET WITH A MEAL ORALLY ONCE A DAY MAGNESIUM, ZINC NOT-TAKING VITAMIN C 500 MG CAPSULE DIRECTED ORALLY NOT-TAKING HAIR SKIN AND NAILS FORMULA - TABLET DIRECTED ORALLY NOT-TAKING DOXYCYCLINE MONOHYDRATE 100 MG CAPSULE ORAL NOT-TAKING CULTURELLE IMMUNITY SUPPORT - CAPSULE ORAL MEDICATION LIST REVIEWED AND RECONCILED WITH THE PATIENT PAST MEDICAL HISTORY ARTHRITIS DEPRESSION ANXIETY HEADACHE MIGRAINE HEADACHES HYPERTENSION PSYCHIATRIC DISORDER THYROID DISEASE INSOMNIA PTSD FIBROMYALGIA ESOPHAGEAL REFLUX NIGHT [place] SYSTEMIC LUPUS ERYTHATOSUS LYME DISEASE PER 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 1 SON(S) , 2 DAUGHTER(S) - HEALTHY. MOTHER AND FATHER HEALTHYGRANDMOTHER STROKE, DEMENTIA. SOCIAL HISTORY GENERAL: TOBACCO USE ARE YOU A:NONSMOKER LATEX QUESTIONNAIRE LATEX ALLERGY : HAVE YOU EVER DEVELOPED ANY TYPE OF REACTION AFTER HANDLING LATEX PRODUCTS SUCH RUBBER GLOVES, CONDOMS, DIAPHRAGMS, BALLOONS, SOCKS, OR UNDERWEAR?NO LATEX ALLERGY : HAVE YOU EVER DEVELOPED ANY TYPE OF REACTION DURING OR AFTER DENTAL APPOINTMENT, VAGINAL/RECTAL EXAMINATION, SURGICAL PROCEDURE, OR ANY OTHER EXPOSURE?NO LATEX RISK : HAVE YOU EVER HAD ANY DIFFICULTY BREATHING OR HIVES AFTER EATING OR HANDLING ANY FRUITS, OR VEGETABLES; SUCH KIWI, BANANAS, STONE FRUITS, OR CHESTNUTSNO LATEX RISK : DO YOU HAVE A PREVIOUS PERSONAL HISTORY OF MORE THAN NINE SURGERIES, SPINA BIFIDA, OR REPEATED CATHERIZATIONS? NO LATEX RISK : ARE YOU FREQUENTLY EXPOSED TO LATEX PRODUCTS IN YOUR OCCUPATION?NO DATE ASKED : 01/06/2020 ALCOHOL SCREENING DID YOU HAVE A DRINK CONTAINING ALCOHOL IN THE PAST YEAR?YES HOW OFTEN DID YOU HAVE SIX OR MORE DRINKS ON ONE OCCASION IN THE PAST YEAR?NEVER (0 POINTS) HOW MANY DRINKS DID YOU HAVE ON A TYPICAL DAY WHEN YOU WERE DRINKING IN THE PAST YEAR?3 OR 4 (1 POINT) HOW OFTEN DID YOU HAVE A DRINK CONTAINING ALCOHOL IN THE PAST YEAR?MONTHLY OR LESS (1 POINT) POINTS2 INTERPRETATIONNEGATIVE RECREATIONAL DRUG USE DRUG USE?NO PATIENT DENIES ABUSE OR MISSUSED OF ANY MEDICATION DENIES PATIENT DENIES USE OF ANY ILLEGAL SUBSTANCE INCLUDING MARIJUANA OR COCAINE DENIES CAFFEINE CAFFEINE USE?YES TEA 1 CUP DAILY SODA 1 OCCASIONALLY BUDDHIST BUDDHIST NO YAZIDISM BELIEFS THAT WOULD IMPACT HEALTH CARE. LANGUAGE LANGUAGES SPOKEN:[place] EDUCATION LEVEL OF EDUCATION:HIGH SCHOOL LEARNING BARRIERS / SPECIAL NEEDS BARRIERS TO LEARNING?NO HEARING IMPAIRED?NO VISION IMPAIRED?YES :CORRECTIVE LENSES COGNITIVELY IMPAIRED?NO READINESS TO LEARN?YES LEARNING PREFERENCES?YES :DEMONSTRATION/VERBAL INSTRUCTION LEARNING CAPABILITIES PRESENT?YES EMOTIONAL BARRIERS?NO SPECIAL DEVICES?NO CERTIFIED GREEN BUILDING ENGINEER NEEDED?NO DOMESTIC VIOLENCE STATUS: DO YOU FEEL SAFE IN YOUR ENVIRONMENT?YES OCCUPATION: DISABELED. DIET: REGULAR. EXERCISE: , NO REGULAR EXERCISE. MARITAL STATUS: .. OTHERS AT HOME: CHILDREN. PAIN CLINIC PFS, CLERGY, PUBLIC HEALTH REFERRALS PFS REFERRAL NEEDED?NO CLERGY REFERRAL NEEDED?NO PUBLIC HEALTH REFERRAL NEEDED?NO HAS THE PATIENT BEEN EDUCATED REGARDING HIS/HER PLAN OF CARE?YES HAS THE PATIENT BEEN EDUCATED REGARDING PAIN, THE RISK FOR PAIN, THE IMPORTANCE OF EFFECTIVE PAIN MANAGEMENT, AND THE PAIN ASSESSMENT PROCESS?YES HOUSING: OWNS HOME. ADVANCE DIRECTIVE ADVANCE DIRECTIVE DISCUSSED WITH PATIENT:YES 01/06/2020 STATES SHE HAS NO ADVANCED DIRECTIVES AND DECLINES INFORMATION ON HCP HOSPITALIZATION/MAJOR DIAGNOSTIC PROCEDURE CHILDBIRTH KIDNEY INFECTION SURGERIES VITAL SIGNS WT 164 LBS, HT 64 IN, BMI 28.15 INDEX, BP 122/70 MM HG, HR 66 /MIN, RR 16 /MIN, TEMP 98.1 F, OXYGEN SAT % 97%, SAFE IN ENV? (Y/N) Y, REVIEWED BY: AD. EXAMINATION GENERAL EXAMINATION: THE PATIENT IS ALERT, ORIENTED TIMES THREE AND COOPERATIVE. HEART SHOWS REGULAR RHYTHM, NO MURMURS AND NO GALLOPS. LUNGS ARE CLEAR TO AUSCULTATION. ASSESSMENTS MYALGIA, OTHER SITE - M79.18 (PRIMARY) PROCEDURES PAIN NURSING RECORD PRE-PROCEDURE IV SITE N/A, PRE-PROCEDURE ORAL MEDICATIONS 1145 VALIUM 10MGS GIVEN PO BY Sandra CHESTER RN PROCEDURE IN ROOM 1135, PHYSICIAN IN ROOM 1227, START 1233, FINISH 1236, PHYSICIAN OUT OF ROOM 1236, OUT OF ROOM 1248, STEROID DEXAMETHASONE, O2 RA, ECG N/A, PATIENT SHIELDED NO, SAFETY STRAP NO, PREP ALCOHOL DR. ROY, IV INFUSED N/A, DRESSING TEGADERM Sandra CHESTER RN LOC: TED CHESTER 01/06/2020 12:03:28 PM > 1. ALERT, ORIENTED RESP: TED CHESTER 01/06/2020 12:03:30 PM > 2. OTHER 1. REGULAR, NO DYSPNEA COLOR: TED CHESTER 01/06/2020 12:03:36 PM > 3. OTHER 1. PINK SKIN: TED CHESTER 01/06/2020 12:03:41 PM > 1. WARM, DRY POSITION: 4. OTHER-SITTING VITALS: TED CHESTER 01/06/2020 12:44:49 PM > 135/83,61,16,100% DISCHARGE: POST PAIN 1-08/30 LOW BACK, DRESSING SITE DRY AND INTACT, IV N/A, GAIT STEADY, TEACHING COMPLETED, PATIENT ACKNOWLEDGES UNDERSTANDING YES, PATIENT DISCHARGED AT 1248 PN TRIGGER POINT INJECTION WITH STEROIDS PRE PROCEDURE DIAGNOSIS 1. MYALGIA 2. PAIN AT BILATERAL LOWER BACK AREA POST PROCEDURE DIAGNOSIS 1. MYALGIA 2. PAIN AT BILATERAL LOWER BACK AREA PROCEDURE TRIGGER POINT INJECTION AT BILATERAL LOWER BACK AREA SURGEON DR. KARO ROY MEN'S CUSTOM HAIR PIECE CONSULTANT NONE ANESTHESIA LOCAL PRE PROCEDURE NOTE THE PATIENT HAS A HISTORY OF CHRONIC PAIN AT THE LEFT AND RIGHT LOWER BACK AREA. I EVALUATED THE PATIENT AND REVIEWED THE CHART. THERE IS EVIDENCE OF BANDS OF TISSUE WITH RESTRICTION OF MOVEMENT AND PRESENCE OF TRIGGER POINT AT THE LEFT AND RIGHT LOWER BACK AREA. IN THE RIGHT LOWER BACK AREA, THERE WAS A RED INDENTATION THAT MEASURED APPROXIMATELY 1.3 INCH BY 0.7 INCHES, MEASURED BY EYE, SEE PHOTO BELOW. I DISCUSSED THIS WITH THE PATIENT AND SHOWED HER THE PICTURE OF THE SPOT AND ASKED IF SHE WOULD LIKE TO MOVE FORWARD WITH THE TRIGGER SHOT AND SHE AGREED. I WENT OVER THE RISKS, ALTERNATIVES, AND BENEFITS ASSOCIATED WITH THIS PROCEDURE. I DISCUSSED THAT THE USE OF STEROIDS MAY CONTRIBUTE TO IMMUNOSUPPRESSION OF THE PATIENT'S BODY AGAINST INFECTIONS SUCH COVID-19. THE PATIENT IS AWARE OF THE POTENTIAL COMPLICATIONS ASSOCIATED WITH THIS VIRUS, INCLUDING, BUT NOT LIMITED TO, . THE PATIENT WOULD LIKE TO PROCEED AND GIVE CONSENT TO PERFORMED THE PROCEDURE. THE PATIENT DENIES UNEXPLAINABLE WEIGHT LOSS, FEVER, CHILLS, OR NEW CHANGES IN URINARY OR BOWEL CONTROL. THE PATIENT IS COVID-19 NEGATIVE DESCRIPTION OF PROCEDURE THE PATIENT WAS BROUGHT TO THE PROCEDURE ROOM AND PLACED IN THE SITTING POSITION. THE AREA WAS CLEANED WITH ALCOHOL. THE PROCEDURE WAS DONE USING ASEPTIC STERILE TECHNIQUE. I CHECKED LATERALITY AND THE LEVEL WHERE THE PROCEDURE WAS GOING TO BE PERFORMED WITH THE PATIENT AND THE SUPPORTING STAFF AT THE MOMENT OF THE TIME OUT IN THE PROCEDURE ROOM. USING A 25-GAUGE NEEDLE, TRIGGER POINTS WERE INJECTED AT THE RIGHT AND LEFT LOWER BACK AREA WITH A TOTAL OF 40 ML OF BUPIVACAINE 0.25% AND DEXAMETHASONE 10 MG. THERE WAS NO EVIDENCE OF BLOOD, PARESTHESIA OR CEREBROSPINAL FLUID DURING THE PROCEDURE. THE PATIENT WAS SENT TO THE RECOVERY ROOM. THE PATIENT WAS MOVING THE EXTREMITIES AND DOING WELL. THERE WAS NO COMPLICATION DURING THE PROCEDURE. EBL LESS THAN 5 ML POST PROCEDURE NOTE THE PROCEDURE DONE WAS DISCUSSED WITH THE PATIENT. THE PATIENT WILL BE SEEN IN A FOLLOW UP IN THE NEXT FEW WEEKS. I AM LOOKING FOR LONG LASTING PAIN RELIEF FOR THE PATIENT WITH THIS INTERVENTION. INSTRUCTIONS WERE GIVEN, QUESTIONS WERE ANSWERED, AND THE PATIENT EXPRESSED UNDERSTANDING AND AGREES WITH THE PLAN. THE PATIENT IS AWARE TO STAY HOME FOR THE NEXT WEEK, IF POSSIBLE, DUE TO COVID-19. I, ROS HALL, DOCUMENTED THE ABOVE INFORMATION ACTING A SCRIBE FOR DR. ROY. I HAVE REVIEWED THE ABOVE DOCUMENT, WRITTEN BY ROS HALL, HEAVY EQUIPMENT SALES ASSOCIATE, AND I VERIFY THAT IT IS ACCURATE PROCEDURE CODES 56236 INJ TRIGGER POINT 1/2 MUSCL DISPOSITION & COMMUNICATION FOLLOW UP F/UP WITH HAZARDOUS MATERIAL SPECIALIST (REASON: POST TPI CASSIDY LOW BACK) ELECTRONICALLY SIGNED BY KARO ROY MD, MD ON 01/10/2020 AT 12:33 PM EDT DISCLAIMER : THIS IS A VISIT SUMMARY EXTRACTED FROM THE [employer] CHART. IT IS NOT A COPY OF THE [employer] PROGRESS NOTE. LURDES
== END ==
LOC: M PAIN 11:45
PROVIDERS: ATTEND Anesthesiology
DX: M79.18 Myalgia, other site (principal)
CPT/HCPCS: 20552; J1100

== ENCOUNTER → 2020-02-02 | Outpatient (CLI) | payer OTHER ==
--- NOTE | 2020-02-04 03:51 | ECWPNPC ---
PATIENT NAME: CINDA NUR : 1975 GENDER: FEMALE VISIT DATE: 02/02/2020 DISCHARGE DATE: 02/02/20 1442 VISIT LOCKED DATE TIME: PHYSICIAN: GAUDENCIO LEZAMA RESOURCE: GAUDENCIO LEZAMA REASON FOR APPOINTMENT 1. POST PROC HISTORY OF PRESENT ILLNESS GENERAL: HERE FOR POST PROCEDURE FOLLOW-UP. HAD TRIGGER POINT INJECTION, BILATERAL LUMBAR REGION ON 01/06/2020. REPORTING 1 WEEK OF IMPROVEMENT IN PAIN AND THEN PAIN HAS RETURNED TO BASELINE. CHIEF AREA OF PAIN IS LOW BACK. PAIN IS AGGRAVATED BY WALKING. HISTORY OF LUPUS. ON PLAQUENIL THERAPY. REVIEWED MRI OF THE LS-SPINE. DISCUSSED TREATMENT OPTIONS. -. FALL RISK SCREENING: SCREENING :TWO OR MORE FALLS WITHOUT INJURY IN THE PAST YEAR PATIENT DENIES INJURIES FROM FALL, DID NOT SEEK MEDICAL ATTENTION. MOST RECENT FALL 11/2019. PAIN SCREENING: PATIENT HAS A COMPLAINT OF ACUTE OR CHRONIC PAIN :YES LOCATION OF PAIN:LOW BACK, HAND(S), KNEES, ANKLE(S) INTENSITY OF PAIN (SCALE OF 1 TO 10):9 9 IN AM, BACK WORSENS WITH SITTING BECAUSE OF PAIN WHAT DOES YOUR PAIN FEEL LIKE:CONTINOUS, BURNING, ACHING DURATION:CONTINOUS, AWAKENS FROM SLEEP WORSE IN AM PAIN IS INCREASED BY:PROLONGED STANDING, ACTIVITIES PAIN IS DECREASED BY:SITTING, USE OF PAIN MEDICATIONS SITTING BRIEFLY HELPS, LAYING IN BED PAIN HAS INTERFERED WITH THE FOLLOWING:BATHING/DRESSING, WALKING ABILITY, HOUSEWORK, SLEEP, ENJOYMENT OF LIFE, FOOD PREPARATION, EMPLOYMENT PLAN/GOALS/TREATMENT/INTERVENTION/FOLLOW UP:SEE PLAN NURSING NOTE: -. PAIN CENTER INTAKE QUESTIONS: DO YOU HAVE A HISTORY OF MRSA? :NO DO YOU TAKE A BLOOD THINNERS? :NO DO YOU HAVE ANY BLEEDING DISORDERS? :NO ANY NEW NUMBNESS OR WEAKNESS IN YOUR LEGS OR ARMS? :NO ANY PACEMAKER,DEFIBRILLATOR, OR DORSAL COLUMN STIMULATOR? :NO DO YOU HAVE ANY RASHES OR OPEN SORES? :NO ARE YOU ALLERGIC TO IV DYE? :NO ARE YOU DIABETIC? :NO ANY NEW PROBLEMS WITH YOUR MEDICATIONS? :NO HAVE YOU RECEIVED A VACCINE IN THE PAST 30 DAYS? :NO DO YOU PLAN TO RECEIVE A VACCINE IN THE NEXT 21 DAYS? :NO DO YOU NEED ANY PRESCRIPTION? :NO DO YOU TAKE ANY IMMUNOSUPPRESSIVE MEDICATIONS? :YES IS THERE A CHANCE YOU COULD BE ? :NO ARE YOU BREAST FEEDING? :NO CURRENT MEDICATIONS TAKING BUPROPION HCL ER (XL) 150 MG TABLET EXTENDED RELEASE 24 HOUR 1 TABLET IN THE MORNING ORALLY ONCE A DAY TAKING LEVOTHYROXINE SODIUM 175 MCG TABLET 1 TABLET ON AN EMPTY STOMACH IN THE MORNING ORALLY ONCE A DAY TAKING OMEPRAZOLE 40 MG CAPSULE DELAYED RELEASE 1 CAPSULE ORALLY TWICE DAILY TAKING VERAPAMIL HCL ER 180 MG TABLET EXTENDED RELEASE 1 TABLET ORALLY ONCE A DAY TAKING VYVANSE 70 MG CAPSULE 1 CAPSULE IN THE MORNING ORALLY ONCE A DAY TAKING IRON 325 (65 FE) MG TABLET 1 TABLET ORALLY 3 TIMES PER WEEK TAKING GABAPENTIN 600 MG TABLET 2 TABLETS ORALLY TWICE DAILY TAKING OXYBUTYNIN CHLORIDE 5 MG TABLET 1 TABLET ORALLY DAILY TAKING CLONAZEPAM 1 MG TABLET 1-2 TABLETS ORALLY TWICE DAILY NEEDED TAKING PRAZOSIN HCL 2 MG CAPSULE 1 CAPSULE AT BEDTIME ORALLY BEFORE BEDTIME TAKING TRAZODONE HCL 150 MG TABLET 1 TABLET AT BEDTIME ORALLY QHS PRN TAKING PLAQUENIL 200 MG TABLET 1 TAB ORALLY BID TAKING DEPAKOTE 1 CAP ORALLY 500MG BID TAKING MAXALT-LAUNDRY AID 10 MG TABLET DISINTEGRATING 1 TABLET ORALLY ONCE DAILY NEEDED TAKING DULOXETINE HCL 30 MG CAPSULE DELAYED RELEASE PARTICLES 1 CAPSULE ORALLY TWICE A DAY TAKING REXULTI 1 MG TABLET 1 TABLET ORALLY ONCE A DAY TAKING CYCLOBENZAPRINE HCL 10 MG TABLET 1 TABLET ORALLY THREE TIMES DAILY NEEDED TAKING MAY USE MEDICAL MARIJUANA TAKING MULTI VITAMIN DAILY - TABLET 1 TABLET ORALLY ONCE A DAY TAKING BIOTIN - POWDER UNKNOWN DOSAGE TAKING MAY USE TUMERIC PO UNKNOWN DOSE DAILY NOT-TAKING FOLIC ACID 1 MG TABLET 1 TABLET ORALLY ONCE A DAY NOT-TAKING METHOTREXATE SODIUM 2.5 MG TABLET 4 TABLETS DIRECTED ORALLY ONCE WEEKLY NOT-TAKING MIRALAX - PACKET 1 PACKET MIXED WITH 8 OUNCES OF FLUID ORALLY 17 GRAMS IN OJ PRN ONCE A DAY NOT-TAKING CARISOPRODOL 250 MG TABLET 1-3 DAILY ORAL NEEDED NOT-TAKING CALCIUM + D3 600-800 MG-UNIT TABLET 1 TABLET WITH A MEAL ORALLY ONCE A DAY MAGNESIUM, ZINC NOT-TAKING VITAMIN C 500 MG CAPSULE DIRECTED ORALLY NOT-TAKING HAIR SKIN AND NAILS FORMULA - TABLET DIRECTED ORALLY NOT-TAKING DOXYCYCLINE MONOHYDRATE 100 MG CAPSULE ORAL NOT-TAKING CULTURELLE IMMUNITY SUPPORT - CAPSULE ORAL MEDICATION LIST REVIEWED AND RECONCILED WITH THE PATIENT PAST MEDICAL HISTORY ARTHRITIS DEPRESSION ANXIETY HEADACHE MIGRAINE HEADACHES HYPERTENSION PSYCHIATRIC DISORDER THYROID DISEASE INSOMNIA PTSD FIBROMYALGIA ESOPHAGEAL REFLUX NIGHT [place] SYSTEMIC LUPUS ERYTHATOSUS LYME DISEASE PER 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 1 SON(S) , 2 DAUGHTER(S) - HEALTHY. MOTHER AND FATHER HEALTHYGRANDMOTHER STROKE, DEMENTIA. SOCIAL HISTORY GENERAL: TOBACCO USE ARE YOU A:NONSMOKER LATEX QUESTIONNAIRE LATEX ALLERGY : HAVE YOU EVER DEVELOPED ANY TYPE OF REACTION AFTER HANDLING LATEX PRODUCTS SUCH RUBBER GLOVES, CONDOMS, DIAPHRAGMS, BALLOONS, SOCKS, OR UNDERWEAR?NO LATEX ALLERGY : HAVE YOU EVER DEVELOPED ANY TYPE OF REACTION DURING OR AFTER DENTAL APPOINTMENT, VAGINAL/RECTAL EXAMINATION, SURGICAL PROCEDURE, OR ANY OTHER EXPOSURE?NO LATEX RISK : HAVE YOU EVER HAD ANY DIFFICULTY BREATHING OR HIVES AFTER EATING OR HANDLING ANY FRUITS, OR VEGETABLES; SUCH KIWI, BANANAS, STONE FRUITS, OR CHESTNUTSNO LATEX RISK : DO YOU HAVE A PREVIOUS PERSONAL HISTORY OF MORE THAN NINE SURGERIES, SPINA BIFIDA, OR REPEATED CATHERIZATIONS? NO LATEX RISK : ARE YOU FREQUENTLY EXPOSED TO LATEX PRODUCTS IN YOUR OCCUPATION?NO DATE ASKED : 02/02/2020 ALCOHOL SCREENING DID YOU HAVE A DRINK CONTAINING ALCOHOL IN THE PAST YEAR?YES HOW OFTEN DID YOU HAVE SIX OR MORE DRINKS ON ONE OCCASION IN THE PAST YEAR?NEVER (0 POINTS) HOW MANY DRINKS DID YOU HAVE ON A TYPICAL DAY WHEN YOU WERE DRINKING IN THE PAST YEAR?3 OR 4 (1 POINT) HOW OFTEN DID YOU HAVE A DRINK CONTAINING ALCOHOL IN THE PAST YEAR?MONTHLY OR LESS (1 POINT) POINTS2 INTERPRETATIONNEGATIVE RECREATIONAL DRUG USE DRUG USE?NO PATIENT DENIES ABUSE OR MISSUSED OF ANY MEDICATION DENIES PATIENT DENIES USE OF ANY ILLEGAL SUBSTANCE INCLUDING MARIJUANA OR COCAINE DENIES CAFFEINE CAFFEINE USE?YES TEA 1 CUP DAILY SODA 1 OCCASIONALLY GNOSTICISM GNOSTICISM NO YARSANISM BELIEFS THAT WOULD IMPACT HEALTH CARE. LANGUAGE LANGUAGES SPOKEN:MOR[place]CC[place] EDUCATION LEVEL OF EDUCATION:HIGH SCHOOL LEARNING BARRIERS / SPECIAL NEEDS BARRIERS TO LEARNING?NO HEARING IMPAIRED?NO VISION IMPAIRED?YES :CORRECTIVE LENSES COGNITIVELY IMPAIRED?NO READINESS TO LEARN?YES LEARNING PREFERENCES?YES :DEMONSTRATION/VERBAL INSTRUCTION LEARNING CAPABILITIES PRESENT?YES EMOTIONAL BARRIERS?NO SPECIAL DEVICES?NO MUSIC STORE MANAGER NEEDED?NO DOMESTIC VIOLENCE STATUS: DO YOU FEEL SAFE IN YOUR ENVIRONMENT?YES OCCUPATION: DISABELED. DIET: REGULAR. EXERCISE: , NO REGULAR EXERCISE. MARITAL STATUS: .. OTHERS AT HOME: CHILDREN. PAIN CLINIC PFS, CLERGY, PUBLIC HEALTH REFERRALS PFS REFERRAL NEEDED?NO CLERGY REFERRAL NEEDED?NO PUBLIC HEALTH REFERRAL NEEDED?NO HAS THE PATIENT BEEN EDUCATED REGARDING HIS/HER PLAN OF CARE?YES HAS THE PATIENT BEEN EDUCATED REGARDING PAIN, THE RISK FOR PAIN, THE IMPORTANCE OF EFFECTIVE PAIN MANAGEMENT, AND THE PAIN ASSESSMENT PROCESS?YES HOUSING: OWNS HOME. ADVANCE DIRECTIVE ADVANCE DIRECTIVE DISCUSSED WITH PATIENT:YES STATES SHE HAS NO ADVANCED DIRECTIVES AND DECLINES INFORMATION ON HCP HOSPITALIZATION/MAJOR DIAGNOSTIC PROCEDURE CHILDBIRTH KIDNEY INFECTION SURGERIES REVIEW OF SYSTEMS CONSTITUTIONAL: ANY RECENT FEVER NO . CHILLS NO . WEIGHT CHANGE OF UNKNOWN REASONS NO . GASTROENTEROLOGY: NEW UNEXPLAINABLE CHANGES IN BOWEL CONTROL NO . CONSTIPATION NO . GENITOURINARY: ANY NEW CHANGE IN BLADDER CONTROL? NO . NEUROLOGY: NEW ONSET DIZZINESS OR NEUROLOGICAL CHANGES NOT MENTIONED NO . NEW NUMBNESS OR PAIN PATTERNS NOT MENTIONED AND PERTINENT TO TODAY'S VISIT NO . CARDIOLOGY: NEW CHEST PRESSURE NO . NEW CHEST PAIN NO . RESPIRATORY: UNEXPLAINABLE COUGH NO . NEW SHORTNESS OF BREATH NO . VITAL SIGNS WT 170.4 LBS, HT 64 IN, BMI 29.25 INDEX, BP 110/64 MM HG, HR 78 /MIN, RR 16 /MIN, TEMP 98.3 F, OXYGEN SAT % 98%, NA INITIALS SC 13:38, REVIEWED BY: MT. EXAMINATION GENERAL EXAMINATION: GENERAL AWAKE,ALERT ,PLEASANT . PSYCH AFFECT NORMAL . LUNGS: LUNG SHEPARD ARE CLEAR TO AUSCULTATION BILATERALLY. GOOD MOVEMENT OF AIR . HEART: S1, S2 IN A REGULAR RATE AND RHYTHM. NO SIGNIFICANT MURMURS, RUBS OR GALLOPS NOTED . LUMBAR: PALPATION: + FOR PAIN OVER L/S SPINE. + FOR PAIN OVER L/S PARASPINALS MODIFIED SLE: POSITIVE OVER LEFT LEG AT 45 DEGREES. DIAGNOSTIC TESTS REVIEWEDMRI L/S SPINE. 2019 . ASSESSMENTS LUMBOSACRAL RADICULOPATHY - M54.17 (PRIMARY) INFLAMMATORY ARTHROPATHY - M19.90 TREATMENT LUMBOSACRAL RADICULOPATHY NOTES: PT 2 TIMES A WEEK 6 WEEKS FOR LOW BACK PAIN. REHABILITATION. PROCEDURE CODES FA211 ESTABILISHED PATIENT [facility] CHARGE DISPOSITION & COMMUNICATION FOLLOW UP 6-8 WEEKS. FOLLOW-UP PT (REASON: LOW BACK PAIN/INFLAMMATORY ARTHROPATHY) ELECTRONICALLY SIGNED BY LALI PATTEN ON 02/03/2020 AT 08:39 AM EDT DISCLAIMER : THIS IS A VISIT SUMMARY EXTRACTED FROM THE [employer] CHART. IT IS NOT A COPY OF THE [employer] PROGRESS NOTE. LURDES
== END ==
LOC: M PAIN 13:30
PROVIDERS: ATTEND Nurse Practitioner Family
DX: M54.17 Radiculopathy, lumbosacral region (principal); M19.90 Unspecified osteoarthritis, unspecified site

== ENCOUNTER → 2020-03-15 | Outpatient (CLI) | payer OTHER | LOC: M PAIN 12:56 | PROVIDERS: ATTEND Nurse Practitioner Family | DX: M79.18 Myalgia, other site (principal) ==

== ENCOUNTER → 2020-05-15 | Outpatient (CLI) | payer MEDICARE, OTHER ==
--- NOTE | 2020-05-20 06:06 | ECWPNPC ---
PATIENT NAME: CINDA NUR : 1975 GENDER: FEMALE VISIT DATE: 05/15/2020 DISCHARGE DATE: 05/15/20 1257 VISIT LOCKED DATE TIME: PHYSICIAN: GAUDENCIO LEZAMA RESOURCE: GAUDENCIO LEZAMA REASON FOR APPOINTMENT 1. DISCUSS INTERVENTIONAL TREATMENT OPTIONS- LOW BACK PAIN HISTORY OF PRESENT ILLNESS DEPRESSION SCREENING: PHQ-9 LITTLE INTEREST OR PLEASURE IN DOING THINGSMORE THAN HALF THE DAYS FEELING DOWN, DEPRESSED, OR HOPELESSMORE THAN HALF THE DAYS TROUBLE FALLING OR STAYING ASLEEP, OR SLEEPING TOO MUCHNEARLY EVERY DAY FEELING TIRED OR HAVING LITTLE ENERGYNEARLY EVERY DAY POOR APPETITE OR OVEREATING NEARLY EVERY DAY FEELING BAD ABOUT YOURSELF-OR THAT YOU ARE A FAILURE OR HAVE LET YOURSELF OR YOUR FAMILY DOWN MORE THAN HALF THE DAYS TROUBLE CONCENTRATING ON THINGS, SUCH READING THE NEWSPAPER OR WATCHING TELEVISION NEARLY EVERY DAY MOVING OR SPEAKING SO SLOWLY THAT OTHER PEOPLE COULD HAVE NOTICED. OR THE OPPOSITE- BEING SO FIDGETY OR RESTLESS THAT YOU HAVE BEEN MOVING AROUND A LOT MORE THAN USUALNOT AT ALL THOUGHTS THAT YOU WOULD BE BETTER OFF , OR OF HURTING YOURSELF IN SOME WAY?NOT AT ALL TOTAL SCORE:18 INTERPRETATIONMODERATELY SEVERE DEPRESSION PHQ-2 (2015 EDITION) LITTLE INTEREST OR PLEASURE IN DOING THINGS?MORE THAN HALF THE DAYS FEELING DOWN, DEPRESSED, OR HOPELESS?MORE THAN HALF THE DAYS TOTAL SCORE4 GENERAL: HERE FOR FOLLOW-UP OF CHRONIC LOW BACK PAIN. HAVING INCREASE IN LOW BACK PAIN OVER THE PAST FEW MONTHS. PAIN IS AGGRAVATED BY WALKING OR STANDING. PAIN IS RELIEVED SOMEWHAT AT REST.-. FALL RISK SCREENING: SCREENING :NO FALLS REPORTED IN THE LAST YEAR PAIN SCREENING: PATIENT HAS A COMPLAINT OF ACUTE OR CHRONIC PAIN :YES LOCATION OF PAIN: NECK, LOW BACK, BUTTOCKS, HIPS, THIGHS, RIGHT KNEE INTENSITY OF PAIN (SCALE OF 1 TO 10):7 WHAT DOES YOUR PAIN FEEL LIKE:ACHING, TENDER DURATION:CONTINOUS PAIN IS INCREASED BY:ACTIVITIES, PROLONGED STANDING PAIN IS DECREASED BY:USE OF PAIN MEDICATIONS, SITTING NURSING NOTE: -. PAIN CENTER INTAKE QUESTIONS: DO YOU HAVE A HISTORY OF MRSA? :NO DO YOU TAKE A BLOOD THINNERS? :NO DO YOU HAVE ANY BLEEDING DISORDERS? :NO ANY NEW NUMBNESS OR WEAKNESS IN YOUR LEGS OR ARMS? :NO ANY PACEMAKER,DEFIBRILLATOR, OR DORSAL COLUMN STIMULATOR? :NO DO YOU HAVE ANY RASHES OR OPEN SORES? :NO ARE YOU ALLERGIC TO IV DYE? :NO ARE YOU DIABETIC? :NO ANY NEW PROBLEMS WITH YOUR MEDICATIONS? :YES WAS ON A STEROID MEDICATION AND STOPPED DUE TO WEIGHT GAIN HAVE YOU RECEIVED A VACCINE IN THE PAST 30 DAYS? :YES IF SO WHAT VACCINE AND WHEN? INFLUENZA ABOUT 1 MONTH AGO DO YOU PLAN TO RECEIVE A VACCINE IN THE NEXT 21 DAYS? :NO DO YOU NEED ANY PRESCRIPTION? :NO DO YOU TAKE ANY IMMUNOSUPPRESSIVE MEDICATIONS? :YES PLAQUENIL IS THERE A CHANCE YOU COULD BE ? :NO ARE YOU BREAST FEEDING? :NO CURRENT MEDICATIONS TAKING BUPROPION HCL ER (XL) 150 MG TABLET EXTENDED RELEASE 24 HOUR 1 TABLET IN THE MORNING ORALLY ONCE A DAY TAKING OMEPRAZOLE 40 MG CAPSULE DELAYED RELEASE 1 CAPSULE ORALLY TWICE DAILY TAKING VERAPAMIL HCL ER 180 MG TABLET EXTENDED RELEASE 1 TABLET ORALLY ONCE A DAY TAKING VYVANSE 70 MG CAPSULE 1 CAPSULE IN THE MORNING ORALLY ONCE A DAY TAKING GABAPENTIN 600 MG TABLET 2 TABLETS ORALLY TWICE DAILY TAKING OXYBUTYNIN CHLORIDE 5 MG TABLET 1 TABLET ORALLY DAILY TAKING CLONAZEPAM 1 MG TABLET 1-2 TABLETS ORALLY TWICE DAILY NEEDED TAKING PRAZOSIN HCL 2 MG CAPSULE 1 CAPSULE AT BEDTIME ORALLY BEFORE BEDTIME TAKING TRAZODONE HCL 150 MG TABLET 1 TABLET AT BEDTIME ORALLY QHS PRN TAKING DEPAKOTE 1 CAP ORALLY 500MG BID TAKING MAXALT-MANAGER PSYCHOLOGY 10 MG TABLET DISINTEGRATING 1 TABLET ORALLY ONCE DAILY NEEDED TAKING DULOXETINE HCL 30 MG CAPSULE DELAYED RELEASE PARTICLES 1 CAPSULE ORALLY TWICE A DAY TAKING REXULTI 1 MG TABLET 1 TABLET ORALLY ONCE A DAY TAKING CYCLOBENZAPRINE HCL 10 MG TABLET 1 TABLET ORALLY THREE TIMES DAILY NEEDED TAKING MAY USE MEDICAL MARIJUANA TAKING MULTI VITAMIN DAILY - TABLET 1 TABLET ORALLY ONCE A DAY TAKING BIOTIN - POWDER UNKNOWN DOSAGE TAKING MAY USE TUMERIC PO UNKNOWN DOSE DAILY TAKING PLAQUENIL 200 MG TABLET 1 TAB ORALLY BID NOT-TAKING LEVOTHYROXINE SODIUM 175 MCG TABLET 1 TABLET ON AN EMPTY STOMACH IN THE MORNING ORALLY ONCE A DAY NOT-TAKING IRON 325 (65 FE) MG TABLET 1 TABLET ORALLY 3 TIMES PER WEEK UNKNOWN FOLIC ACID 1 MG TABLET 1 TABLET ORALLY ONCE A DAY UNKNOWN METHOTREXATE SODIUM 2.5 MG TABLET 4 TABLETS DIRECTED ORALLY ONCE WEEKLY UNKNOWN MIRALAX - PACKET 1 PACKET MIXED WITH 8 OUNCES OF FLUID ORALLY 17 GRAMS IN OJ PRN ONCE A DAY UNKNOWN CARISOPRODOL 250 MG TABLET 1-3 DAILY ORAL NEEDED UNKNOWN CALCIUM + D3 600-800 MG-UNIT TABLET 1 TABLET WITH A MEAL ORALLY ONCE A DAY MAGNESIUM, ZINC UNKNOWN VITAMIN C 500 MG CAPSULE DIRECTED ORALLY UNKNOWN HAIR SKIN AND NAILS FORMULA - TABLET DIRECTED ORALLY UNKNOWN DOXYCYCLINE MONOHYDRATE 100 MG CAPSULE ORAL UNKNOWN CULTURELLE IMMUNITY SUPPORT - CAPSULE ORAL MEDICATION LIST REVIEWED AND RECONCILED WITH THE PATIENT PAST MEDICAL HISTORY ARTHRITIS DEPRESSION ANXIETY HEADACHE MIGRAINE HEADACHES HYPERTENSION PSYCHIATRIC DISORDER THYROID DISEASE INSOMNIA PTSD FIBROMYALGIA ESOPHAGEAL REFLUX NIGHT [place] SYSTEMIC LUPUS ERYTHATOSUS LYME DISEASE PER 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 1 SON(S) , 2 DAUGHTER(S) - HEALTHY. MOTHER AND FATHER HEALTHYGRANDMOTHER STROKE, DEMENTIA. SOCIAL HISTORY GENERAL: TOBACCO USE ARE YOU A:NONSMOKER LATEX QUESTIONNAIRE LATEX ALLERGY : HAVE YOU EVER DEVELOPED ANY TYPE OF REACTION AFTER HANDLING LATEX PRODUCTS SUCH RUBBER GLOVES, CONDOMS, DIAPHRAGMS, BALLOONS, SOCKS, OR UNDERWEAR?NO LATEX ALLERGY : HAVE YOU EVER DEVELOPED ANY TYPE OF REACTION DURING OR AFTER DENTAL APPOINTMENT, VAGINAL/RECTAL EXAMINATION, SURGICAL PROCEDURE, OR ANY OTHER EXPOSURE?NO DATE ASKED : 02/02/2020 LATEX RISK : HAVE YOU EVER HAD ANY DIFFICULTY BREATHING OR HIVES AFTER EATING OR HANDLING ANY FRUITS, OR VEGETABLES; SUCH KIWI, BANANAS, STONE FRUITS, OR CHESTNUTSNO LATEX RISK : DO YOU HAVE A PREVIOUS PERSONAL HISTORY OF MORE THAN NINE SURGERIES, SPINA BIFIDA, OR REPEATED CATHERIZATIONS? NO LATEX RISK : ARE YOU FREQUENTLY EXPOSED TO LATEX PRODUCTS IN YOUR OCCUPATION?NO ALCOHOL SCREENING DID YOU HAVE A DRINK CONTAINING ALCOHOL IN THE PAST YEAR?YES HOW OFTEN DID YOU HAVE SIX OR MORE DRINKS ON ONE OCCASION IN THE PAST YEAR?NEVER (0 POINTS) HOW MANY DRINKS DID YOU HAVE ON A TYPICAL DAY WHEN YOU WERE DRINKING IN THE PAST YEAR?3 OR 4 (1 POINT) HOW OFTEN DID YOU HAVE A DRINK CONTAINING ALCOHOL IN THE PAST YEAR?MONTHLY OR LESS (1 POINT) POINTS2 INTERPRETATIONNEGATIVE RECREATIONAL DRUG USE DRUG USE?NO PATIENT DENIES ABUSE OR MISSUSED OF ANY MEDICATION DENIES PATIENT DENIES USE OF ANY ILLEGAL SUBSTANCE INCLUDING MARIJUANA OR COCAINE DENIES CAFFEINE CAFFEINE USE?YES TEA 1 CUP DAILY SODA 1 OCCASIONALLY ZOROASTRIAN ZOROASTRIAN NO ORIENTAL ORTHODOX BELIEFS THAT WOULD IMPACT HEALTH CARE. LANGUAGE LANGUAGES SPOKEN:ARMENIAN EDUCATION LEVEL OF EDUCATION:HIGH SCHOOL LEARNING BARRIERS / SPECIAL NEEDS BARRIERS TO LEARNING?NO HEARING IMPAIRED?NO VISION IMPAIRED?YES COGNITIVELY IMPAIRED?NO :CORRECTIVE LENSES READINESS TO LEARN?YES LEARNING PREFERENCES?YES :DEMONSTRATION/VERBAL INSTRUCTION LEARNING CAPABILITIES PRESENT?YES EMOTIONAL BARRIERS?NO SPECIAL DEVICES?NO UPPER AND BOTTOM LACER HAND NEEDED?NO DOMESTIC VIOLENCE STATUS: DO YOU FEEL SAFE IN YOUR ENVIRONMENT?YES OCCUPATION: DISABELED. DIET: REGULAR. EXERCISE: , NO REGULAR EXERCISE. MARITAL STATUS: .. OTHERS AT HOME: CHILDREN. PAIN CLINIC PFS, CLERGY, PUBLIC HEALTH REFERRALS PFS REFERRAL NEEDED?NO CLERGY REFERRAL NEEDED?NO PUBLIC HEALTH REFERRAL NEEDED?NO HAS THE PATIENT BEEN EDUCATED REGARDING HIS/HER PLAN OF CARE?YES HAS THE PATIENT BEEN EDUCATED REGARDING PAIN, THE RISK FOR PAIN, THE IMPORTANCE OF EFFECTIVE PAIN MANAGEMENT, AND THE PAIN ASSESSMENT PROCESS?YES HOUSING: OWNS HOME. ADVANCE DIRECTIVE ADVANCE DIRECTIVE DISCUSSED WITH PATIENT:YES STATES SHE HAS NO ADVANCED DIRECTIVES AND DECLINES INFORMATION ON HCP HOSPITALIZATION/MAJOR DIAGNOSTIC PROCEDURE CHILDBIRTH KIDNEY INFECTION SURGERIES REVIEW OF SYSTEMS CONSTITUTIONAL: ANY RECENT FEVER NO . CHILLS NO . WEIGHT CHANGE OF UNKNOWN REASONS NO . GASTROENTEROLOGY: NEW UNEXPLAINABLE CHANGES IN BOWEL CONTROL NO . CONSTIPATION NO . GENITOURINARY: ANY NEW CHANGE IN BLADDER CONTROL? NO . NEUROLOGY: NEW ONSET DIZZINESS OR NEUROLOGICAL CHANGES NOT MENTIONED NO . NEW NUMBNESS OR PAIN PATTERNS NOT MENTIONED AND PERTINENT TO TODAY'S VISIT NO . CARDIOLOGY: NEW CHEST PRESSURE NO . NEW CHEST PAIN NO . RESPIRATORY: UNEXPLAINABLE COUGH NO . NEW SHORTNESS OF BREATH NO . VITAL SIGNS WT 179.6 LBS, HT 64 IN, BMI 30.82 INDEX, BP 116/69 MM HG, HR 79 /MIN, RR 16 /MIN, TEMP 98.0 F, OXYGEN SAT % 97%, NA INITIALS SC 11:34. EXAMINATION GENERAL EXAMINATION: GENERAL AWAKE,ALERT ,PLEASANT . PSYCH AFFECT NORMAL . LUNGS: LUNG SHEPARD ARE CLEAR TO AUSCULTATION BILATERALLY. GOOD MOVEMENT OF AIR . HEART: S1, S2 IN A REGULAR RATE AND RHYTHM. NO SIGNIFICANT MURMURS, RUBS OR GALLOPS NOTED . LUMBAR: PALPATION: + FOR PAIN OVER L/S SPINE. + FOR PAIN OVER L/S PARASPINALS MODIFIED SLE: POSITIVE OVER LEFT LEG AT 45 DEGREES. DIAGNOSTIC TESTS REVIEWEDMRI L/S SPINE. 2019 . ASSESSMENTS DISC DISPLACEMENT, LUMBAR - M51.26 (PRIMARY) TREATMENT DISC DISPLACEMENT, LUMBAR NOTES: LUMBAR EPIDURAL STEROID INJECTION, LUMBAR EPIDURAL INJECTION HOME CARE MATERIAL WAS PUBLISHED TO [employer]. OTHERS NOTES: L4/5 LESI SEND STOP PLAQUENIL X7 DAYS RE[facility] HOME CARE MATERIAL WAS PRINTED. PREVENTIVE MEDICINE PAIN CLINIC TEACHING: PROCEDURE TEACHING PRE PROCEDURE INSTRUCTIONS REVIEWED WITH PT. VERBALIZED UNDERSTANDING.. PROCEDURE CODES FA211 ESTABILISHED PATIENT [facility] CHARGE DISPOSITION & COMMUNICATION FOLLOW UP POST PROC (REASON: L4/5 LESI) ELECTRONICALLY SIGNED BY LALI PATTEN ON 05/19/2020 AT 03:44 PM EDT DISCLAIMER : THIS IS A VISIT SUMMARY EXTRACTED FROM THE [employer] CHART. IT IS NOT A COPY OF THE [email or web address] PROGRESS NOTE. LURDES
== END ==
LOC: M PAIN 11:15
PROVIDERS: ATTEND Nurse Practitioner Family
DX: M51.26 Other intervertebral disc displacement, lumbar region (principal); F32.9 Major depressive disorder, single episode, unspecified; F41.9 Anxiety disorder, unspecified; G43.909 Migraine, unspecified, not intractable, without status migrainosus; I10 Essential (primary) hypertension; E07.9 Disorder of thyroid, unspecified; G47.00 Insomnia, unspecified; F43.10 Post-traumatic stress disorder, unspecified; M79.7 Fibromyalgia; K21.9 Gastro-esophageal reflux disease without esophagitis; M32.9 Systemic lupus erythematosus, unspecified; Z79.899 Other long term (current) drug therapy; Z88.5 Allergy status to narcotic agent

== ENCOUNTER → 2020-05-31 | Outpatient (CLI) | payer MEDICARE, OTHER | LOC: M LABSMTC 14:00 | PROVIDERS: ATTEND Anesthesiology | DX: Z20.828 Contact with and (suspected) exposure to other viral communicable diseases (principal) ==

== ENCOUNTER → 2020-06-05 | Outpatient (CLI) | payer MEDICARE, OTHER ==
[~2020-06-05] MED LIST changes: -BUPIVACAINE HCL 0.25% 10ML VIAL As Ordered ONE; -BUPIVACAINE HCL 0.25% 30ML VIAL As Ordered ONE; +ISOVUE-M 300 61% 15ML VIAL As Ordered ONE; +LIDOCAINE 1% SDV 30ML VIAL As Ordered ONE; -dexameTHASONE 10MG/1ML VIAL PRES.FREE (J1100 PER 1MG) As Ordered ONE; +methylPREDNISolone SUSP 40MG/ML 1ML VIAL (DEPO MEDROL) As Ordered ONE
--- NOTE | 2020-06-05 14:34 | REP ---
INDICATION: PAIN. COMPARISON: None. TECHNIQUE: C-arm views lower lumbar spine performed. FINDINGS: A needle is seen at the L4-5 level. A small amount of contrast is injected. IMPRESSION: 38 seconds of fluoroscopy time was utilized. <Electronically signed by Keven Ramos > 06/05/20 0855
--- NOTE | 2020-06-06 02:58 | ECWPNPC ---
PATIENT NAME: CINDA NUR : 1975 GENDER: FEMALE VISIT DATE: 06/05/2020 DISCHARGE DATE: 06/05/20 1344 VISIT LOCKED DATE TIME: PHYSICIAN: KARO ROY MD RESOURCE: KARO ROY MD REASON FOR APPOINTMENT 1. L4/5 LESI HISTORY OF PRESENT ILLNESS GENERAL: -. FALL RISK SCREENING: SCREENING :NO FALLS REPORTED IN THE LAST YEAR PAIN SCREENING: PATIENT HAS A COMPLAINT OF ACUTE OR CHRONIC PAIN :YES LOCATION OF PAIN:LOW BACK, LEG(S) INTENSITY OF PAIN (SCALE OF 1 TO 10):7 WHAT DOES YOUR PAIN FEEL LIKE:ACHING, BURNING, CONTINOUS, TENDER, SORE DURATION:CONTINOUS PAIN IS INCREASED BY:ACTIVITIES, PROLONGED STANDING PAIN IS DECREASED BY:USE OF PAIN MEDICATIONS, SITTING NURSING NOTE: -. PAIN CENTER INTAKE QUESTIONS: DO YOU HAVE A HISTORY OF MRSA? :NO DO YOU TAKE A BLOOD THINNERS? :NO DO YOU HAVE ANY BLEEDING DISORDERS? :NO ANY NEW NUMBNESS OR WEAKNESS IN YOUR LEGS OR ARMS? :NO ANY PACEMAKER,DEFIBRILLATOR, OR DORSAL COLUMN STIMULATOR? :NO DO YOU HAVE ANY RASHES OR OPEN SORES? :NO ARE YOU ALLERGIC TO IV DYE? :NO ARE YOU DIABETIC? :NO ANY NEW PROBLEMS WITH YOUR MEDICATIONS? :NO HAVE YOU RECEIVED A VACCINE IN THE PAST 30 DAYS? :NO DO YOU PLAN TO RECEIVE A VACCINE IN THE NEXT 21 DAYS? :NO DO YOU TAKE ANY IMMUNOSUPPRESSIVE MEDICATIONS? :NO ANY HISTORY OF SEIZURES? :NO ANY HISTORY OF CARDIAC ISSUES OR EVENTS? :NO DO YOU HAVE SLEEP APNEA? :NO ANY RECENT HEAD INJURY? :NO DO YOU HAVE ANY NEW INFECTIONS? :NO IS THERE A CHANCE YOU COULD BE ? :NO ARE YOU BREAST FEEDING? :NO WHEN DID YOU LAST EAT? : -06/04/20 1800 WHEN DID YOU LAST DRINK? : -06/05/20829 WHAT DID YOU LAST DRINK? : -WATER NAME OF PERSON DRIVING YOU HOME? : -MOM JOHNNY DO YOU HAVE ANY OTHER QUESTIONS OR CONCERNS? : - CURRENT MEDICATIONS TAKING BUPROPION HCL ER (XL) 150 MG TABLET EXTENDED RELEASE 24 HOUR 1 TABLET IN THE MORNING ORALLY ONCE A DAY, NOTES: 06/05 830 TAKING OMEPRAZOLE 40 MG CAPSULE DELAYED RELEASE 1 CAPSULE ORALLY TWICE DAILY, NOTES: 06/05 830 TAKING VERAPAMIL HCL ER 180 MG TABLET EXTENDED RELEASE 1 TABLET ORALLY ONCE A DAY, NOTES: 06/05 830 TAKING VYVANSE 70 MG CAPSULE 1 CAPSULE IN THE MORNING ORALLY ONCE A DAY, NOTES: 06/05 830 TAKING GABAPENTIN 600 MG TABLET 2 TABLETS ORALLY TWICE DAILY, NOTES: 06/05 830 TAKING OXYBUTYNIN CHLORIDE 5 MG TABLET 1 TABLET ORALLY DAILY, NOTES: 06/04 2100 TAKING CLONAZEPAM 1 MG TABLET 1-2 TABLETS ORALLY TWICE DAILY NEEDED, NOTES: 06/04 2100 TAKING PRAZOSIN HCL 2 MG CAPSULE 1 CAPSULE AT BEDTIME ORALLY BEFORE BEDTIME, NOTES: 06/04 2100 TAKING TRAZODONE HCL 150 MG TABLET 1 TABLET AT BEDTIME ORALLY QHS PRN, NOTES: 06/04 2100 TAKING DEPAKOTE 1 CAP ORALLY 500MG BID, NOTES: 06/05 830 TAKING MAXALT-SMALL ENGINE TECHNICIAN 10 MG TABLET DISINTEGRATING 1 TABLET ORALLY ONCE DAILY NEEDED, NOTES: LAST WEEK TAKING DULOXETINE HCL 30 MG CAPSULE DELAYED RELEASE PARTICLES 1 CAPSULE ORALLY TWICE A DAY, NOTES: 06/05 830 TAKING REXULTI 4 MG TABLET 1 TABLET ORALLY ONCE A DAY, NOTES: 06/05 830 TAKING CYCLOBENZAPRINE HCL 10 MG TABLET 1 TABLET ORALLY THREE TIMES DAILY NEEDED, NOTES: 06/04 2100 TAKING MAY USE MEDICAL MARIJUANA , NOTES: NONE IN 2 WKS TAKING MULTI VITAMIN DAILY - TABLET 1 TABLET ORALLY ONCE A DAY, NOTES: NONE IN OAST WEEK TAKING BIOTIN - POWDER UNKNOWN DOSAGE , NOTES: NONE IN PAST WEEK TAKING MAY USE TUMERIC PO UNKNOWN DOSE DAILY, NOTES: NONE IN PAST WEEK TAKING PLAQUENIL 200 MG TABLET 1 TAB ORALLY BID, NOTES: 06/05 830 TAKING TIROSINT 200 MCG CAPSULE 1 CAPSULE ORAL ONCE A DAY, NOTES: 06/05 830 TAKING MEDROL 4 MG TABLET THERAPY PACK DIRECTED ORALLY DAILY FOR 6 DAYS, NOTES: TO START 4 WEEKS AFTER EPIDURAL INJECTION NOT-TAKING LEVOTHYROXINE SODIUM 175 MCG TABLET 1 TABLET ON AN EMPTY STOMACH IN THE MORNING ORALLY ONCE A DAY NOT-TAKING IRON 325 (65 FE) MG TABLET 1 TABLET ORALLY 3 TIMES PER WEEK UNKNOWN FOLIC ACID 1 MG TABLET 1 TABLET ORALLY ONCE A DAY UNKNOWN METHOTREXATE SODIUM 2.5 MG TABLET 4 TABLETS DIRECTED ORALLY ONCE WEEKLY UNKNOWN MIRALAX - PACKET 1 PACKET MIXED WITH 8 OUNCES OF FLUID ORALLY 17 GRAMS IN OJ PRN ONCE A DAY UNKNOWN CARISOPRODOL 250 MG TABLET 1-3 DAILY ORAL NEEDED UNKNOWN CALCIUM + D3 600-800 MG-UNIT TABLET 1 TABLET WITH A MEAL ORALLY ONCE A DAY MAGNESIUM, ZINC UNKNOWN VITAMIN C 500 MG CAPSULE DIRECTED ORALLY UNKNOWN HAIR SKIN AND NAILS FORMULA - TABLET DIRECTED ORALLY UNKNOWN DOXYCYCLINE MONOHYDRATE 100 MG CAPSULE ORAL UNKNOWN CULTURELLE IMMUNITY SUPPORT - CAPSULE ORAL MEDICATION LIST REVIEWED AND RECONCILED WITH THE PATIENT PAST MEDICAL HISTORY ARTHRITIS DEPRESSION ANXIETY HEADACHE MIGRAINE HEADACHES HYPERTENSION PSYCHIATRIC DISORDER THYROID DISEASE INSOMNIA PTSD FIBROMYALGIA ESOPHAGEAL REFLUX NIGHT [place] SYSTEMIC LUPUS ERYTHATOSUS LYME DISEASE PER 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 1 SON(S) , 2 DAUGHTER(S) - HEALTHY. MOTHER AND FATHER HEALTHYGRANDMOTHER STROKE, DEMENTIA. SOCIAL HISTORY GENERAL: TOBACCO USE ARE YOU A:NONSMOKER LATEX QUESTIONNAIRE LATEX ALLERGY : HAVE YOU EVER DEVELOPED ANY TYPE OF REACTION AFTER HANDLING LATEX PRODUCTS SUCH RUBBER GLOVES, CONDOMS, DIAPHRAGMS, BALLOONS, SOCKS, OR UNDERWEAR?NO LATEX ALLERGY : HAVE YOU EVER DEVELOPED ANY TYPE OF REACTION DURING OR AFTER DENTAL APPOINTMENT, VAGINAL/RECTAL EXAMINATION, SURGICAL PROCEDURE, OR ANY OTHER EXPOSURE?NO LATEX RISK : HAVE YOU EVER HAD ANY DIFFICULTY BREATHING OR HIVES AFTER EATING OR HANDLING ANY FRUITS, OR VEGETABLES; SUCH KIWI, BANANAS, STONE FRUITS, OR CHESTNUTSNO LATEX RISK : DO YOU HAVE A PREVIOUS PERSONAL HISTORY OF MORE THAN NINE SURGERIES, SPINA BIFIDA, OR REPEATED CATHERIZATIONS? NO LATEX RISK : ARE YOU FREQUENTLY EXPOSED TO LATEX PRODUCTS IN YOUR OCCUPATION?NO DATE ASKED : 06/05/2020 ALCOHOL SCREENING DID YOU HAVE A DRINK CONTAINING ALCOHOL IN THE PAST YEAR?YES HOW OFTEN DID YOU HAVE SIX OR MORE DRINKS ON ONE OCCASION IN THE PAST YEAR?NEVER (0 POINTS) HOW MANY DRINKS DID YOU HAVE ON A TYPICAL DAY WHEN YOU WERE DRINKING IN THE PAST YEAR?3 OR 4 (1 POINT) HOW OFTEN DID YOU HAVE A DRINK CONTAINING ALCOHOL IN THE PAST YEAR?MONTHLY OR LESS (1 POINT) POINTS2 INTERPRETATIONNEGATIVE RECREATIONAL DRUG USE DRUG USE?NO PATIENT DENIES ABUSE OR MISSUSED OF ANY MEDICATION DENIES PATIENT DENIES USE OF ANY ILLEGAL SUBSTANCE INCLUDING MARIJUANA OR COCAINE DENIES CAFFEINE CAFFEINE USE?YES COFFEE: 1 DAILY SODA 1 OCCASIONALLY HINDU HINDU NO NONDENOMINATIONAL BELIEFS THAT WOULD IMPACT HEALTH CARE. LANGUAGE LANGUAGES SPOKEN:CZECH EDUCATION LEVEL OF EDUCATION:HIGH SCHOOL LEARNING BARRIERS / SPECIAL NEEDS BARRIERS TO LEARNING?NO HEARING IMPAIRED?NO VISION IMPAIRED?YES :CORRECTIVE LENSES COGNITIVELY IMPAIRED?NO READINESS TO LEARN?YES LEARNING PREFERENCES?YES :DEMONSTRATION/VERBAL INSTRUCTION LEARNING CAPABILITIES PRESENT?YES EMOTIONAL BARRIERS?NO SPECIAL DEVICES?NO HYDRAULIC JACK MECHANIC NEEDED?NO DOMESTIC VIOLENCE STATUS: DO YOU FEEL SAFE IN YOUR ENVIRONMENT?YES OCCUPATION: DISABELED. DIET: REGULAR. EXERCISE: , NO REGULAR EXERCISE. MARITAL STATUS: .. OTHERS AT HOME: CHILDREN. PAIN CLINIC PFS, CLERGY, PUBLIC HEALTH REFERRALS PFS REFERRAL NEEDED?NO CLERGY REFERRAL NEEDED?NO PUBLIC HEALTH REFERRAL NEEDED?NO HAS THE PATIENT BEEN EDUCATED REGARDING HIS/HER PLAN OF CARE?YES HAS THE PATIENT BEEN EDUCATED REGARDING PAIN, THE RISK FOR PAIN, THE IMPORTANCE OF EFFECTIVE PAIN MANAGEMENT, AND THE PAIN ASSESSMENT PROCESS?YES HOUSING: OWNS HOME. ADVANCE DIRECTIVE ADVANCE DIRECTIVE DISCUSSED WITH PATIENT:YES STATES SHE HAS NO ADVANCED DIRECTIVES AND DECLINES INFORMATION ON HCP HOSPITALIZATION/MAJOR DIAGNOSTIC PROCEDURE CHILDBIRTH KIDNEY INFECTION SURGERIES VITAL SIGNS WT 182.6 LBS, HT 64 IN, BMI 31.34 INDEX, BP 138/89 MM HG, HR 83 /MIN, RR 18 /MIN, TEMP 98.7 F, OXYGEN SAT % 100%, SAFE IN ENV? (Y/N) YES, NA INITIALS ME 11:12, REVIEWED BY: GERALDINE RN @ 4724. EXAMINATION GENERAL EXAMINATION: THE PATIENT IS ALERT, ORIENTED TIMES THREE AND COOPERATIVE. HEART SHOWS REGULAR RHYTHM, NO MURMURS AND NO GALLOPS. LUNGS ARE CLEAR TO AUSCULTATION. ASSESSMENTS INTERVERTEBRAL DISC DISORDERS WITH RADICULOPATHY, LUMBAR REGION - M51.16 (PRIMARY) TREATMENT INTERVERTEBRAL DISC DISORDERS WITH RADICULOPATHY, LUMBAR REGION [facility] FLUORO GUIDE SPINE INJECTION (PAIN)[id number] SALINE NANANABEL 06/05/2020 1:02:06 PM > #20 INITIATED RIGHT ANTECUBITAL SITE ON 1ST ATTEMPT BY Violetta MIRMAONTES RN. MEDICATION: VALIUM TAB 10MG ORALLY (DIAZEPAM)BLADE MIRAMONTES 06/05/2020 11:51:05 AM > LOT# [id number] EXP: 10/2020 ANABEL BA 06/05/2020 11:52:54 AM > VALIUM ADMINISTERED AT 1152 NOTES: D/C INSTRUCTIONS REVIEWED WITH PATIENT. PATIENT VERBALIZED UNDERSTANDING OF DISCHARGE INSTRUCTIONS. IV SITE DISCONTINUED. PROCEDURES PAIN NURSING RECORD PRE-PROCEDURE IV SITE RIGHT ANTECUBITAL, IV STARTED # 20, IV STARTED BY: Marianne MIRAMONTES RN, IV ATTEMPTS 2, PRE-PROCEDURE ORAL MEDICATIONS YES, SEE TREATMENT SECTION PROCEDURE IN ROOM 1225, PHYSICIAN IN ROOM 1253, START 1258, FINISH 1315, PHYSICIAN OUT OF ROOM 1317, OUT OF ROOM 1328, STEROID DEPOMEDROL, O2 RA, ECG NORMAL SINUS, PATIENT SHIELDED YES, SAFETY STRAP YES, PREP BETADINE BY Violetta BA RN, IV INFUSED N/A, DRESSING TEGADERM BY DR ROY LOC: 1. ALERT, ORIENTED RESP: 1. REGULAR, NO DYSPNEA COLOR: 1. PINK SKIN: 1. WARM, DRY POSITION: 1. PRONE VITALS: ANABEL BA 06/05/2020 12:30:09 PM > 150/99 HR 73 16 98% , ANABEL BA 06/05/2020 12:45:48 PM > 150/103 HR 73 16 98% , ANABEL BA 06/05/2020 13:00:45 PM > 145/101 HR 70 16 98% , ANABEL BA 06/05/2020 1:15:21 PM > 145/94 HR 69 16 98% , ANABEL BA 06/05/2020 1:36:58 PM > 149/88 HR 75 16 98% D/C V/S DISCHARGE: POST PAIN 4, DRESSING SITE DRY AND INTACT, IV DISCONTINUED, SITE CLEAR, CATHETER INTACT, GAIT STEADY, TEACHING COMPLETED, PATIENT ACKNOWLEDGES UNDERSTANDING YES, PATIENT DISCHARGED AT 1342 PRE PROCEDURE DIAGNOSIS LUMBAR DISC DISORDER WITH RADICULOPATHY POST PROCEDURE DIAGNOSIS LUMBAR DISC DISORDER WITH RADICULOPATHY PROCEDURE LUMBAR EPIDURAL STEROID INJECTION UNDER FLUOROSCOPIC GUIDANCE SURGEON DR. KARO ROY NETWORKS SOFTWARE CONSULTANT NONE ANESTHESIA LOCAL PRE PROCEDURE NOTE THE PATIENT HAS A HISTORY OF CHRONIC LOW BACK PAIN. I EVALUATED THE PATIENT AND REVIEWED THE CHART. I WENT OVER THE RISKS, ALTERNATIVES, AND BENEFITS ASSOCIATED WITH THIS PROCEDURE. I DISCUSSED THAT THE USE OF STEROIDS MAY CONTRIBUTE TO IMMUNOSUPPRESSION OF THE PATIENT'S BODY AGAINST INFECTIONS SUCH COVID-19. THE PATIENT IS AWARE OF THE POTENTIAL COMPLICATIONS ASSOCIATED WITH THIS VIRUS, INCLUDING, BUT NOT LIMITED TO, . THE PATIENT WOULD LIKE TO PROCEED AND GIVE CONSENT TO PERFORMED THE PROCEDURE. THE PATIENT DENIES UNEXPLAINABLE WEIGHT LOSS, FEVER, CHILLS, OR NEW CHANGES IN URINARY OR BOWEL CONTROL. THE PATIENT IS COVID-19 NEGATIVE DESCRIPTION OF PROCEDURE THE PATIENT WAS BROUGHT TO THE PROCEDURE ROOM AND PLACED IN THE PRONE POSITION. THE LUMBOSACRAL AREA WAS CLEANED WITH BETADINE SOLUTION AND DRAPED ASEPTICALLY. THE PROCEDURE WAS DONE UNDER STERILE CONDITIONS. A TIMEOUT WAS PERFORMED WHERE LATERALITY AND THE SITE OF THE PROCEDURE WERE CHECKED AND CONFIRMED WITH EVERYONE IN THE ROOM. UNDER FLUOROSCOPIC GUIDANCE, THE TARGET POINT WAS SELECTED AT THE INTERLAMINAR LEVEL OF L4-L5. I CONFIRMED AGAIN WITH EVERYONE IN THE ROOM THE LATERALITY OF THE TARGET AT 1258. LIDOCAINE WAS USED TO NUMB THE SKIN AND THE SUBCUTANEOUS TISSUE BELOW IT. EPIDURAL TUOHY NEEDLE, 17-GAUGE, WAS ADVANCED UNDER FLUOROSCOPIC GUIDANCE AND FOLLOWING PATIENT FEEDBACK UNTIL THE EPIDURAL SPACE WAS REACHED 8 CM DEEP INTO THE SKIN BY THE LOSS OF RESISTANCE TECHNIQUE. ISOVUE-M DYE 30%, 0.25 ML, WAS INJECTED SHOWING ADEQUATE SPREAD OF THE DYE. THEN, A SOLUTION OF 3 ML OF NORMAL SALINE WITH DEPO-MEDROL 80 MG WAS INJECTED SLOWLY FOLLOWING PATIENT FEEDBACK. THE MEDICATIONS WERE VERIFIED WITH THE NURSE. THERE WAS NO EVIDENCE OF BLOOD, PARESTHESIA OR CEREBROSPINAL FLUID DURING THE PROCEDURE. THE PATIENT WAS SENT TO THE RECOVERY ROOM. THE PATIENT WAS MOVING THE EXTREMITIES AND DOING WELL. THERE WERE NO COMPLICATIONS DURING THE PROCEDURE. ESTIMATED BLOOD LOSS WAS LESS THAN 5 ML. FLUOROSCOPY TIME WAS 37 SECONDS POST PROCEDURE NOTE THE LIGAMENTUM FLAVUM WAS VERY HARD. I WOULD LIKE TO REVIEW THE MRI WITH THE RADIOLOGIST. DEPENDING ON THE RESULTS, I WOULD SUGGEST AN RIGHT L3-L4, L4-L5 TRANSFORAMINAL EPIDURAL INJECTION. THE PATIENT WILL BE SEEN IN A FOLLOW UP IN THE NEXT FEW WEEKS. I AM LOOKING FOR LONG LASTING RELIEF FOR THE PATIENT WITH THIS INTERVENTION. INSTRUCTIONS WERE GIVEN, QUESTIONS WERE ANSWERED, AND THE PATIENT EXPRESSED UNDERSTANDING AND AGREES WITH THE PLAN. I, ROS HALL, DOCUMENTED THE ABOVE INFORMATION ACTING A SCRIBE FOR DR. ROY. I HAVE REVIEWED THE ABOVE DOCUMENT, WRITTEN BY ROS HALL MANAGER STATISTICS, AND I VERIFY THAT IT IS ACCURATE PROCEDURE CODES 81600 LUMBAR/SACRAL W/ IMAGING DISPOSITION & COMMUNICATION FOLLOW UP FOLLOW UP WITH BAKERY DEMONSTRATOR (REASON: POST LESI L4-L5) ELECTRONICALLY SIGNED BY KARO ROY MD, ON 06/05/2020 AT 04:30 PM EST DISCLAIMER : THIS IS A VISIT SUMMARY EXTRACTED FROM THE [facility] CHART. IT IS NOT A COPY OF THE [employer] PROGRESS NOTE. LURDES
== END ==
LOC: M PAIN 10:30
PROVIDERS: ATTEND Anesthesiology
DX: M51.16 Intervertebral disc disorders with radiculopathy, lumbar region (principal); G43.909 Migraine, unspecified, not intractable, without status migrainosus; I10 Essential (primary) hypertension; G47.00 Insomnia, unspecified; M79.7 Fibromyalgia; K21.9 Gastro-esophageal reflux disease without esophagitis; Z86.59 Personal history of other mental and behavioral disorders; Z88.5 Allergy status to narcotic agent; Z79.899 Other long term (current) drug therapy
CPT/HCPCS: 62323; J1030; Q9967

== ENCOUNTER → 2020-06-23 | Outpatient (REF) | payer MEDICARE, OTHER | LOC: M LAB REF 17:02 | PROVIDERS: ATTEND Internal Medicine Nephrology | DX: N39.0 Urinary tract infection, site not specified (principal); R80.9 Proteinuria, unspecified ==

== ENCOUNTER → 2020-07-03 | Outpatient (REF) | payer MEDICARE, OTHER | LOC: M SFHCRHEU 11:46 | PROVIDERS: ATTEND Internal Medicine | DX: M32.9 Systemic lupus erythematosus, unspecified (principal) | CPT/HCPCS: 86704; G0463 ==

== ENCOUNTER → 2020-09-20 | Outpatient (REF) | payer MEDICARE, OTHER ==
[2020-09-20 18:19] LABS: CREATININE, URINE 97.9 MG/DL; MALB URINE SIEMENS 9.8 MG/L; TOTAL PROTEIN,RANDOM URINE 25.1 MG/DL (0.0-12.0)
== END ==
LOC: M LAB REF 17:01
PROVIDERS: ATTEND Internal Medicine Nephrology
DX: R80.9 Proteinuria, unspecified (principal)

== ENCOUNTER → 2020-09-25 | Outpatient (CLI) | payer MEDICARE, OTHER ==
--- NOTE | 2020-09-30 05:39 | ECWPNPC ---
PATIENT NAME: CINDA NUR : 1975 GENDER: FEMALE VISIT DATE: 09/25/2020 DISCHARGE DATE: 09/25/20 1359 VISIT LOCKED DATE TIME: PHYSICIAN: GAUDENCIO LEZAMA RESOURCE: GAUDENCIO LEZAMA REASON FOR APPOINTMENT 1. LBP/BILAT LEG HISTORY OF PRESENT ILLNESS GENERAL: HERE FOR FOLLOW-UP OF CHRONIC LOW BACK PAIN. PAIN HAS BEGUN TO INCREASE OVER THE PAST MONTH. HAS RESPONDED WELL TO LUMBAR EPIDURAL STEROID INJECTIONS.-. FALL RISK SCREENING: SCREENING : NO FALLS REPORTED IN THE LAST YEAR. PAIN SCREENING: PATIENT HAS A COMPLAINT OF ACUTE OR CHRONIC PAIN :YES LOCATION OF PAIN:LOW BACK INTENSITY OF PAIN (SCALE OF 1 TO 10):5 WHAT DOES YOUR PAIN FEEL LIKE:ACHING, SORE DURATION:CONTINOUS, CONSTANT, ALL DAY PAIN IS INCREASED BY:ACTIVITIES PAIN IS DECREASED BY:OTHERS LAYING DOWN NURSING NOTE: -. PAIN CENTER INTAKE QUESTIONS: DO YOU HAVE A HISTORY OF MRSA? :NO DO YOU TAKE A BLOOD THINNERS? :NO DO YOU HAVE ANY BLEEDING DISORDERS? :NO ANY NEW NUMBNESS OR WEAKNESS IN YOUR LEGS OR ARMS? :YES RIGHT ARM ANY PACEMAKER,DEFIBRILLATOR, OR DORSAL COLUMN STIMULATOR? :NO DO YOU HAVE ANY RASHES OR OPEN SORES? :NO ARE YOU ALLERGIC TO IV DYE? :NO ARE YOU DIABETIC? :NO ANY NEW PROBLEMS WITH YOUR MEDICATIONS? :NO DO YOU PLAN TO RECEIVE A VACCINE IN THE NEXT 21 DAYS? :NO DO YOU NEED ANY PRESCRIPTION? :NO DO YOU TAKE ANY IMMUNOSUPPRESSIVE MEDICATIONS? :YES PLAQUENIL IS THERE A CHANCE YOU COULD BE ? :NO ARE YOU BREAST FEEDING? :NO CURRENT MEDICATIONS TAKING BUPROPION HCL ER (XL) 150 MG TABLET EXTENDED RELEASE 24 HOUR 1 TABLET IN THE MORNING ORALLY ONCE A DAY TAKING OMEPRAZOLE 40 MG CAPSULE DELAYED RELEASE 1 CAPSULE ORALLY TWICE DAILY TAKING VERAPAMIL HCL ER 180 MG TABLET EXTENDED RELEASE 1 TABLET ORALLY ONCE A DAY TAKING VYVANSE 70 MG CAPSULE 1 CAPSULE IN THE MORNING ORALLY ONCE A DAY TAKING GABAPENTIN 600 MG TABLET 2 TABLETS ORALLY TWICE DAILY TAKING OXYBUTYNIN CHLORIDE 5 MG TABLET 1 TABLET ORALLY DAILY TAKING CLONAZEPAM 1 MG TABLET 1-2 TABLETS ORALLY TWICE DAILY NEEDED TAKING PRAZOSIN HCL 2 MG CAPSULE 1 CAPSULE AT BEDTIME ORALLY BEFORE BEDTIME TAKING TRAZODONE HCL 150 MG TABLET 1 TABLET AT BEDTIME ORALLY QHS PRN TAKING DEPAKOTE 1 CAP ORALLY 500MG BID TAKING MAXALT-MATERIAL CHECKER 10 MG TABLET DISINTEGRATING 1 TABLET ORALLY ONCE DAILY NEEDED TAKING DULOXETINE HCL 30 MG CAPSULE DELAYED RELEASE PARTICLES 1 CAPSULE ORALLY TWICE A DAY TAKING REXULTI 4 MG TABLET 1 TABLET ORALLY ONCE A DAY TAKING CYCLOBENZAPRINE HCL 10 MG TABLET 1 TABLET ORALLY THREE TIMES DAILY NEEDED TAKING MAY USE MEDICAL MARIJUANA TAKING MULTI VITAMIN DAILY - TABLET 1 TABLET ORALLY ONCE A DAY TAKING BIOTIN 1000 MCG TABLET CHEWABLE UNKNOWN DOSAGE ORALLY TAKING PLAQUENIL 200 MG TABLET 1 TAB ORALLY BID TAKING TIROSINT 200 MCG CAPSULE 1 CAPSULE ORAL ONCE A DAY NOT-TAKING LEVOTHYROXINE SODIUM 175 MCG TABLET 1 TABLET ON AN EMPTY STOMACH IN THE MORNING ORALLY ONCE A DAY NOT-TAKING IRON 325 (65 FE) MG TABLET 1 TABLET ORALLY 3 TIMES PER WEEK NOT-TAKING FOLIC ACID 1 MG TABLET 1 TABLET ORALLY ONCE A DAY NOT-TAKING METHOTREXATE SODIUM 2.5 MG TABLET 4 TABLETS DIRECTED ORALLY ONCE WEEKLY NOT-TAKING MIRALAX - PACKET 1 PACKET MIXED WITH 8 OUNCES OF FLUID ORALLY 17 GRAMS IN OJ PRN ONCE A DAY NOT-TAKING CARISOPRODOL 250 MG TABLET 1-3 DAILY ORAL NEEDED NOT-TAKING CALCIUM + D3 600-800 MG-UNIT TABLET 1 TABLET WITH A MEAL ORALLY ONCE A DAY MAGNESIUM, ZINC NOT-TAKING VITAMIN C 500 MG CAPSULE DIRECTED ORALLY NOT-TAKING HAIR SKIN AND NAILS FORMULA - TABLET DIRECTED ORALLY NOT-TAKING DOXYCYCLINE MONOHYDRATE 100 MG CAPSULE ORAL NOT-TAKING CULTURELLE IMMUNITY SUPPORT - CAPSULE ORAL MEDICATION LIST REVIEWED AND RECONCILED WITH THE PATIENT PAST MEDICAL HISTORY ARTHRITIS DEPRESSION ANXIETY HEADACHE MIGRAINE HEADACHES HYPERTENSION PSYCHIATRIC DISORDER THYROID DISEASE INSOMNIA PTSD FIBROMYALGIA ESOPHAGEAL REFLUX NIGHT [place] SYSTEMIC LUPUS ERYTHATOSUS LYME DISEASE PER 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 MAJOR DEPRESSIVE DISORDER BACK SPASMS KIDNEY DISEASE STAGE II ALLERGIES MORPHINE SULFATE: NAUSEA/PAIN - SIDE EFFECTS HYDROCODONE: ITCHING - SIDE EFFECTS SOCIAL HISTORY GENERAL: TOBACCO USE ARE YOU A:NONSMOKER LATEX QUESTIONNAIRE LATEX ALLERGY : HAVE YOU EVER DEVELOPED ANY TYPE OF REACTION AFTER HANDLING LATEX PRODUCTS SUCH RUBBER GLOVES, CONDOMS, DIAPHRAGMS, BALLOONS, SOCKS, OR UNDERWEAR?NO LATEX ALLERGY : HAVE YOU EVER DEVELOPED ANY TYPE OF REACTION DURING OR AFTER DENTAL APPOINTMENT, VAGINAL/RECTAL EXAMINATION, SURGICAL PROCEDURE, OR ANY OTHER EXPOSURE?NO LATEX RISK : HAVE YOU EVER HAD ANY DIFFICULTY BREATHING OR HIVES AFTER EATING OR HANDLING ANY FRUITS, OR VEGETABLES; SUCH KIWI, BANANAS, STONE FRUITS, OR CHESTNUTSNO LATEX RISK : DO YOU HAVE A PREVIOUS PERSONAL HISTORY OF MORE THAN NINE SURGERIES, SPINA BIFIDA, OR REPEATED CATHERIZATIONS? NO LATEX RISK : ARE YOU FREQUENTLY EXPOSED TO LATEX PRODUCTS IN YOUR OCCUPATION?NO DATE ASKED : 09/25/2020 ALCOHOL USE: YES. ALCOHOL SCREENING DID YOU HAVE A DRINK CONTAINING ALCOHOL IN THE PAST YEAR?YES HOW OFTEN DID YOU HAVE SIX OR MORE DRINKS ON ONE OCCASION IN THE PAST YEAR?NEVER (0 POINTS) HOW MANY DRINKS DID YOU HAVE ON A TYPICAL DAY WHEN YOU WERE DRINKING IN THE PAST YEAR?3 OR 4 (1 POINT) HOW OFTEN DID YOU HAVE A DRINK CONTAINING ALCOHOL IN THE PAST YEAR?MONTHLY OR LESS (1 POINT) POINTS2 INTERPRETATIONNEGATIVE RECREATIONAL DRUG USE DRUG USE?YES HOW OFTEN AND HOW MUCH? MEDICAL MARIJUANA SUBLINGUAL DROP TWICE DAILY NEEDED CAFFEINE CAFFEINE USE?YES COFFEE: 1 DAILY SODA 1 OCCASIONALLY RELIGIOUS RELIGIOUS NO BAHAI BELIEFS THAT WOULD IMPACT HEALTH CARE. LANGUAGE LANGUAGES SPOKEN:KYRGYZ EDUCATION LEVEL OF EDUCATION:HIGH SCHOOL LEARNING BARRIERS / SPECIAL NEEDS CHANGE FROM LAST VISIT?NO BARRIERS TO LEARNING?NO HEARING IMPAIRED?NO VISION IMPAIRED?YES :CORRECTIVE LENSES COGNITIVELY IMPAIRED?NO READINESS TO LEARN?YES LEARNING PREFERENCES?YES :DEMONSTRATION/VERBAL INSTRUCTION LEARNING CAPABILITIES PRESENT?YES EMOTIONAL BARRIERS?NO SPECIAL DEVICES?NO MAINTENANCE SHOP MANAGER NEEDED?NO DOMESTIC VIOLENCE STATUS: DO YOU FEEL SAFE IN YOUR ENVIRONMENT?YES OCCUPATION: DISABELED. DIET: REGULAR. EXERCISE: , NO REGULAR EXERCISE. MARITAL STATUS: .. OTHERS AT HOME: CHILDREN. - PFS REFERRAL NEEDED?NO CLERGY REFERRAL NEEDED?NO PUBLIC HEALTH REFERRAL NEEDED?NO HAS THE PATIENT BEEN EDUCATED REGARDING HIS/HER PLAN OF CARE?YES HAS THE PATIENT BEEN EDUCATED REGARDING PAIN, THE RISK FOR PAIN, THE IMPORTANCE OF EFFECTIVE PAIN MANAGEMENT, AND THE PAIN ASSESSMENT PROCESS?YES HOUSING: OWNS HOME. ADVANCE DIRECTIVE ADVANCE DIRECTIVE DISCUSSED WITH PATIENT:YES STATES SHE HAS NO ADVANCED DIRECTIVES AND DECLINES INFORMATION ON HCP REVIEW OF SYSTEMS CONSTITUTIONAL: ANY RECENT FEVER NO . CHILLS NO . WEIGHT CHANGE OF UNKNOWN REASONS NO . GASTROENTEROLOGY: NEW UNEXPLAINABLE CHANGES IN BOWEL CONTROL NO . CONSTIPATION NO . GENITOURINARY: ANY NEW CHANGE IN BLADDER CONTROL? NO . NEUROLOGY: NEW ONSET DIZZINESS OR NEUROLOGICAL CHANGES NOT MENTIONED NO . NEW NUMBNESS OR PAIN PATTERNS NOT MENTIONED AND PERTINENT TO TODAY'S VISIT NO . CARDIOLOGY: NEW CHEST PRESSURE NO . PATIENT DENIES NO . RESPIRATORY: UNEXPLAINABLE COUGH NO . NEW SHORTNESS OF BREATH NO . VITAL SIGNS WT 206.6 LBS, HT 64 IN, BMI 35.46 INDEX, BP 167/90 MM HG, HR 92 /MIN, RR 18 /MIN, TEMP 98.1 F, OXYGEN SAT % 98%, SAFE IN ENV? (Y/N) YES, NA INITIALS AW 1326T.TARIQ HERNANDEZ. EXAMINATION GENERAL EXAMINATION: GENERAL AWAKE,ALERT ,PLEASANT . PSYCH AFFECT NORMAL . LUNGS: LUNG SHEPARD ARE CLEAR TO AUSCULTATION BILATERALLY. GOOD MOVEMENT OF AIR . HEART: S1, S2 IN A REGULAR RATE AND RHYTHM. NO SIGNIFICANT MURMURS, RUBS OR GALLOPS NOTED . LUMBAR: PALPATION: + FOR PAIN OVER L/S SPINE. + FOR PAIN OVER L/S PARASPINALS MODIFIED SLE: POSITIVE OVER LEFT LEG AT 45 DEGREES. DIAGNOSTIC TESTS REVIEWEDMRI L/S SPINE. 2019 . ASSESSMENTS INTERVERTEBRAL DISC DISORDERS WITH RADICULOPATHY, LUMBAR REGION - M51.16 (PRIMARY) TREATMENT INTERVERTEBRAL DISC DISORDERS WITH RADICULOPATHY, LUMBAR REGION MEDICATION: VALIUM TAB 10MG ORALLY (DIAZEPAM) (ORDERED FOR 10/02/2020) NOTES: LUMBAR EPIDURAL STEROID INJECTION PRINTED AND REVIEWED PRE PROCEDURE WITH PATIENT CAITLIN HERNANDEZ. PROCEDURE CODES FA211 ESTABILISHED PATIENT [facility] FACILITY CHARGE DISPOSITION & COMMUNICATION FOLLOW UP POST PROCEDURE (REASON: LUMBAR EPIDURAL STEROID INJECTION) ELECTRONICALLY SIGNED BY LALI PATTEN ON 09/29/2020 AT 10:59 AM EST DISCLAIMER : THIS IS A VISIT SUMMARY EXTRACTED FROM THE DTT CHART. IT IS NOT A COPY OF THE DTT PROGRESS NOTE. MTDD
== END ==
LOC: M PAIN 13:30
PROVIDERS: ATTEND Nurse Practitioner Family
DX: M51.16 Intervertebral disc disorders with radiculopathy, lumbar region (principal); G89.29 Other chronic pain; G43.909 Migraine, unspecified, not intractable, without status migrainosus; G47.00 Insomnia, unspecified; M79.7 Fibromyalgia; K21.9 Gastro-esophageal reflux disease without esophagitis; Z86.59 Personal history of other mental and behavioral disorders; Z88.5 Allergy status to narcotic agent; Z79.899 Other long term (current) drug therapy

== ENCOUNTER → 2020-10-13 | Outpatient (CLI) | payer MEDICARE, OTHER | LOC: M LABSMTC 11:15 | PROVIDERS: ATTEND Anesthesiology | DX: Z01.812 Encounter for preprocedural laboratory examination (principal); Z20.822 Contact with and (suspected) exposure to COVID-19 ==

== ENCOUNTER → 2020-10-18 | Outpatient (CLI) | payer MEDICARE, MEDICAID ==
[~2020-10-18] MED LIST changes: -diazePAM 5 MG TAB As Ordered ONE; +diazePAM 5MG TABLET As Ordered ONE
--- NOTE | 2020-10-18 16:41 | REP ---
INDICATION: LESI. COMPARISON: None. TECHNIQUE: Three C-arm views lower lumbar spine. FINDINGS: Needle is seen at the L3-4 level and a small amount of contrast is injected. IMPRESSION: 10 seconds fluoroscopy time utilized. <Electronically signed by Keven Ramos > 10/18/20 [id number]
--- NOTE | 2020-10-20 03:50 | ECWPNPC ---
PATIENT NAME: CINDA NUR : 1975 GENDER: FEMALE VISIT DATE: 10/18/2020 DISCHARGE DATE: 10/18/20 1306 VISIT LOCKED DATE TIME: PHYSICIAN: KARO ROY MD RESOURCE: KARO ROY MD REASON FOR APPOINTMENT 1. LUMBAR EPIDURAL STEROID INJECTION HISTORY OF PRESENT ILLNESS GENERAL: -. FALL RISK SCREENING: SCREENING : NO FALLS REPORTED IN THE LAST YEAR. PAIN SCREENING: PATIENT HAS A COMPLAINT OF ACUTE OR CHRONIC PAIN :YES LOCATION OF PAIN:LOW BACK INTENSITY OF PAIN (SCALE OF 1 TO 10):6 WHAT DOES YOUR PAIN FEEL LIKE:ACHING, BURNING, STABBING DURATION:CONTINOUS, CONSTANT PAIN IS INCREASED BY:ACTIVITIES PAIN IS DECREASED BY:USE OF PAIN MEDICATIONS NURSING NOTE: -. PAIN CENTER INTAKE QUESTIONS: DO YOU HAVE A HISTORY OF MRSA? :NO DO YOU TAKE A BLOOD THINNERS? :NO DO YOU HAVE ANY BLEEDING DISORDERS? :NO ANY NEW NUMBNESS OR WEAKNESS IN YOUR LEGS OR ARMS? :NO ANY PACEMAKER,DEFIBRILLATOR, OR DORSAL COLUMN STIMULATOR? :NO DO YOU HAVE ANY RASHES OR OPEN SORES? :NO ARE YOU ALLERGIC TO IV DYE? :NO ARE YOU DIABETIC? :NO ANY NEW PROBLEMS WITH YOUR MEDICATIONS? :NO HAVE YOU RECEIVED A VACCINE IN THE PAST 30 DAYS? :NO DO YOU PLAN TO RECEIVE A VACCINE IN THE NEXT 21 DAYS? :NO DO YOU TAKE ANY IMMUNOSUPPRESSIVE MEDICATIONS? :YES HYDROXYCHLORIQUINE FOR LUPUS; LAST DOSE - 10/18/20 0930 ANY HISTORY OF SEIZURES? :NO ANY HISTORY OF CARDIAC ISSUES OR EVENTS? :NO DO YOU HAVE ANY KIDNEY OR LIVER DISEASE? :YES 2ND STAGE KIDNEY DISEASE DO YOU HAVE SLEEP APNEA? :NO ANY RECENT HEAD INJURY? :NO DO YOU HAVE ANY NEW INFECTIONS? :NO IS THERE A CHANCE YOU COULD BE ? :NO ARE YOU BREAST FEEDING? :NO WHEN DID YOU LAST EAT? : 10/17/20 1600 WHEN DID YOU LAST DRINK? : 09 WHAT DID YOU LAST DRINK? : WATER NAME OF PERSON DRIVING YOU HOME? : MOTHER DO YOU HAVE ANY OTHER QUESTIONS OR CONCERNS? : - CURRENT MEDICATIONS TAKING BUPROPION HCL ER (XL) 150 MG TABLET EXTENDED RELEASE 24 HOUR 1 TABLET IN THE MORNING ORALLY ONCE A DAY TAKING OMEPRAZOLE 40 MG CAPSULE DELAYED RELEASE 1 CAPSULE ORALLY TWICE DAILY TAKING VERAPAMIL HCL ER 180 MG TABLET EXTENDED RELEASE 1 TABLET ORALLY ONCE A DAY, NOTES: 10/18/20929 TAKING VYVANSE 70 MG CAPSULE 1 CAPSULE IN THE MORNING ORALLY ONCE A DAY TAKING GABAPENTIN 600 MG TABLET 2 TABLETS ORALLY TWICE DAILY TAKING OXYBUTYNIN CHLORIDE 5 MG TABLET 1 TABLET ORALLY DAILY TAKING CLONAZEPAM 1 MG TABLET 1-2 TABLETS ORALLY TWICE DAILY NEEDED TAKING PRAZOSIN HCL 2 MG CAPSULE 1 CAPSULE AT BEDTIME ORALLY BEFORE BEDTIME TAKING TRAZODONE HCL 150 MG TABLET 1 TABLET AT BEDTIME ORALLY QHS PRN TAKING DEPAKOTE 1 CAP ORALLY 500MG BID TAKING MAXALT-SERVICE ADVISOR 10 MG TABLET DISINTEGRATING 1 TABLET ORALLY ONCE DAILY NEEDED TAKING DULOXETINE HCL 30 MG CAPSULE DELAYED RELEASE PARTICLES 1 CAPSULE ORALLY TWICE A DAY TAKING REXULTI 4 MG TABLET 1 TABLET ORALLY ONCE A DAY TAKING CYCLOBENZAPRINE HCL 10 MG TABLET 1 TABLET ORALLY THREE TIMES DAILY NEEDED TAKING MAY USE MEDICAL MARIJUANA TAKING MULTI VITAMIN DAILY - TABLET 1 TABLET ORALLY ONCE A DAY TAKING BIOTIN 1000 MCG TABLET CHEWABLE UNKNOWN DOSAGE ORALLY TAKING PLAQUENIL 200 MG TABLET 1 TAB ORALLY BID, NOTES: 10/18/20929 TAKING TIROSINT 200 MCG CAPSULE 1 CAPSULE ORAL ONCE A DAY TAKING IRON 325 (65 FE) MG TABLET 1 TABLET ORALLY 3 TIMES PER WEEK TAKING MIRALAX - PACKET 1 PACKET MIXED WITH 8 OUNCES OF FLUID ORALLY 17 GRAMS IN OJ PRN ONCE A DAY TAKING CALCIUM + D3 600-800 MG-UNIT TABLET 1 TABLET WITH A MEAL ORALLY ONCE A DAY MAGNESIUM, ZINC NOT-TAKING LEVOTHYROXINE SODIUM 175 MCG TABLET 1 TABLET ON AN EMPTY STOMACH IN THE MORNING ORALLY ONCE A DAY NOT-TAKING FOLIC ACID 1 MG TABLET 1 TABLET ORALLY ONCE A DAY NOT-TAKING METHOTREXATE SODIUM 2.5 MG TABLET 4 TABLETS DIRECTED ORALLY ONCE WEEKLY NOT-TAKING CARISOPRODOL 250 MG TABLET 1-3 DAILY ORAL NEEDED NOT-TAKING VITAMIN C 500 MG CAPSULE DIRECTED ORALLY NOT-TAKING HAIR SKIN AND NAILS FORMULA - TABLET DIRECTED ORALLY NOT-TAKING DOXYCYCLINE MONOHYDRATE 100 MG CAPSULE ORAL NOT-TAKING CULTURELLE IMMUNITY SUPPORT - CAPSULE ORAL MEDICATION LIST REVIEWED AND RECONCILED WITH THE PATIENT PAST MEDICAL HISTORY ARTHRITIS DEPRESSION ANXIETY HEADACHE MIGRAINE HEADACHES HYPERTENSION PSYCHIATRIC DISORDER THYROID DISEASE INSOMNIA PTSD FIBROMYALGIA ESOPHAGEAL REFLUX NIGHT [place] SYSTEMIC LUPUS ERYTHATOSUS LYME DISEASE PER 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 MAJOR DEPRESSIVE DISORDER BACK SPASMS KIDNEY DISEASE STAGE II ALLERGIES MORPHINE SULFATE: NAUSEA/PAIN - SIDE EFFECTS HYDROCODONE: ITCHING - SIDE EFFECTS SOCIAL HISTORY GENERAL: TOBACCO USE ARE YOU A:NONSMOKER LATEX QUESTIONNAIRE LATEX ALLERGY : HAVE YOU EVER DEVELOPED ANY TYPE OF REACTION AFTER HANDLING LATEX PRODUCTS SUCH RUBBER GLOVES, CONDOMS, DIAPHRAGMS, BALLOONS, SOCKS, OR UNDERWEAR?NO LATEX ALLERGY : HAVE YOU EVER DEVELOPED ANY TYPE OF REACTION DURING OR AFTER DENTAL APPOINTMENT, VAGINAL/RECTAL EXAMINATION, SURGICAL PROCEDURE, OR ANY OTHER EXPOSURE?NO DATE ASKED : 09/25/2020 LATEX RISK : HAVE YOU EVER HAD ANY DIFFICULTY BREATHING OR HIVES AFTER EATING OR HANDLING ANY FRUITS, OR VEGETABLES; SUCH KIWI, BANANAS, STONE FRUITS, OR CHESTNUTSNO LATEX RISK : DO YOU HAVE A PREVIOUS PERSONAL HISTORY OF MORE THAN NINE SURGERIES, SPINA BIFIDA, OR REPEATED CATHERIZATIONS? NO LATEX RISK : ARE YOU FREQUENTLY EXPOSED TO LATEX PRODUCTS IN YOUR OCCUPATION?NO ALCOHOL USE: YES. ALCOHOL SCREENING DID YOU HAVE A DRINK CONTAINING ALCOHOL IN THE PAST YEAR?YES HOW OFTEN DID YOU HAVE SIX OR MORE DRINKS ON ONE OCCASION IN THE PAST YEAR?NEVER (0 POINTS) HOW MANY DRINKS DID YOU HAVE ON A TYPICAL DAY WHEN YOU WERE DRINKING IN THE PAST YEAR?3 OR 4 (1 POINT) HOW OFTEN DID YOU HAVE A DRINK CONTAINING ALCOHOL IN THE PAST YEAR?MONTHLY OR LESS (1 POINT) POINTS2 INTERPRETATIONNEGATIVE RECREATIONAL DRUG USE DRUG USE?YES HOW OFTEN AND HOW MUCH? MEDICAL MARIJUANA SUBLINGUAL DROP TWICE DAILY NEEDED CAFFEINE CAFFEINE USE?YES COFFEE: 1 DAILY SODA 1 OCCASIONALLY FAITH FAITH NO CHRISTIAN BELIEFS THAT WOULD IMPACT HEALTH CARE. LANGUAGE LANGUAGES SPOKEN:GAMBIAN EDUCATION LEVEL OF EDUCATION:HIGH SCHOOL LEARNING BARRIERS / SPECIAL NEEDS CHANGE FROM LAST VISIT?NO BARRIERS TO LEARNING?NO HEARING IMPAIRED?NO VISION IMPAIRED?YES COGNITIVELY IMPAIRED?NO :CORRECTIVE LENSES READINESS TO LEARN?YES LEARNING PREFERENCES?YES :DEMONSTRATION/VERBAL INSTRUCTION LEARNING CAPABILITIES PRESENT?YES EMOTIONAL BARRIERS?NO SPECIAL DEVICES?NO TOOL AND DIE MAKER/DESIGNER NEEDED?NO DOMESTIC VIOLENCE STATUS: DO YOU FEEL SAFE IN YOUR ENVIRONMENT?YES OCCUPATION: DISABELED. DIET: REGULAR. EXERCISE: , NO REGULAR EXERCISE. MARITAL STATUS: .. OTHERS AT HOME: CHILDREN. - PFS REFERRAL NEEDED?NO CLERGY REFERRAL NEEDED?NO PUBLIC HEALTH REFERRAL NEEDED?NO HAS THE PATIENT BEEN EDUCATED REGARDING HIS/HER PLAN OF CARE?YES HAS THE PATIENT BEEN EDUCATED REGARDING PAIN, THE RISK FOR PAIN, THE IMPORTANCE OF EFFECTIVE PAIN MANAGEMENT, AND THE PAIN ASSESSMENT PROCESS?YES HOUSING: OWNS HOME. ADVANCE DIRECTIVE ADVANCE DIRECTIVE DISCUSSED WITH PATIENT:YES STATES SHE HAS NO ADVANCED DIRECTIVES AND DECLINES INFORMATION ON HCP VITAL SIGNS WT 207.6 LBS, HT 64 IN, BMI 35.63 INDEX, BP 158/88 MM HG, HR 62 /MIN, RR 18 /MIN, TEMP 98.2 F, OXYGEN SAT % 98%, SAFE IN ENV? (Y/N) YES, NA INITIALS SC 11:51, REVIEWED BY: Yanna ASHLEY RN. EXAMINATION GENERAL EXAMINATION: A HISTORY AND PHYSICAL EXAM ON THE PATIENT WAS DONE ON 09/25/2020 (DATE OF ORIGINAL ASSESSMENT) IN PREPARATION OF SURGERY/PROCEDURE. I HAVE NOW REASSESSED THIS PATIENT'S HEALTH STATUS AND PERFORMED AN UPDATED EXAM TODAY. ALL CHANGES IN THE PATIENT'S HISTORY, PHYSICAL EXAM, PRE-EXISTING CONDITONS, AND INDICATIONS/CONTRAINDICATIONS TO THE PLANNED PROCEDURE AND ANESTHESIA ARE DOCUMENTED AND EVALUATED BELOW. I ATTEST TO THE ADEQUACY AND APPROPRIATENESS OF MY ASSESSMENT, AND CONFIRM THE NECESSITY FOR THE PLANNED PROCEDURE. THE PATIENT IS ALERT, ORIENTED TIMES THREE AND COOPERATIVE. LUNGS ARE CLEAR TO AUSCULTATION. HEART SHOWS REGULAR RHYTHM, NO MURMURS AND NO GALLOPS. ASSESSMENTS INTERVERTEBRAL DISC DISORDERS WITH RADICULOPATHY, LUMBAR REGION - M51.16 (PRIMARY) TREATMENT INTERVERTEBRAL DISC DISORDERS WITH RADICULOPATHY, LUMBAR REGION [facility] FLUORO GUIDE SPINE INJECTION (PAIN)[id number] COMPLETION OF PROCEDURAL VISIT WHEN MEETS CRITERIADEBRA ASHLEY 10/18/2020 1:05:14 PM > CRITERIA MET. MEDICATION: VALIUM TAB 10MG ORALLY (DIAZEPAM)BRENDON URENA 10/18/2020 11:47:42 AM > VERIFIED DEBRA ASHLEY 10/18/2020 11:56:24 AM > ADMINISTERED. OTHERS NOTES: PAT DONE 10/07/20 Jorge UNGER RN BSN. PROCEDURES PAIN NURSING RECORD PROCEDURE IN ROOM 1219, PHYSICIAN IN ROOM 1235, START 1239, FINISH 1244, PHYSICIAN OUT OF ROOM 1246, OUT OF ROOM 1254, ECG NORMAL SINUS, PATIENT SHIELDED YES, SAFETY STRAP YES, PREP BETADINE Jose Enrique URENA RN, DRESSING TEGADERM DR. ROY LOC: DEBRA ASHLEY 10/18/2020 12:39:56 PM > , 1. ALERT, ORIENTED RESP: DEBRA ASHLEY 10/18/2020 12:40:00 PM > , 1. REGULAR, NO DYSPNEA COLOR: DEBRA ASHLEY 10/18/2020 12:40:04 PM > , 1. PINK SKIN: DEBRA ASHLEY 10/18/2020 12:40:08 PM > , 1. WARM, DRY POSITION: DEBRA ASHLEY 10/18/2020 12:40:13 PM > , 1. PRONE VITALS: DEBRA ASHLEY 10/18/2020 12:20:36 PM > 140/91, 60, 16, 96% DEBRA ASHLEY 10/18/2020 12:26:57 PM > 142/95, 60, 16, 97% DEBRA ASHLEY 10/18/2020 12:41:32 PM > 136/85, 60, 16, 96% DEBRA ASHLEY 10/18/2020 12:50:16 PM > 138/91, 60, 16, 97% , DEBRA ASHLEY 10/18/2020 1:01:04 PM > 160/95, 70, 18, 100% COMPLETION OF PROCEDURE APPOINTMENT: POST PAIN 2, DRESSING SITE DRY AND INTACT, IV N/A, GAIT STEADY, TEACHING COMPLETED, PATIENT ACKNOWLEDGES UNDERSTANDING YES, PROCEDURE APPOINTMENT COMPLETED AT 1305 BY: Yanna ASHLEY RN PRE PROCEDURE DIAGNOSIS LUMBAR DISC DISORDER WITH RADICULOPATHY POST PROCEDURE DIAGNOSIS LUMBAR DISC DISORDER WITH RADICULOPATHY PROCEDURE LUMBAR EPIDURAL STEROID INJECTION UNDER FLUOROSCOPIC GUIDANCE SURGEON DR. KARO ROY LAB MANAGER NONE ANESTHESIA LOCAL PRE PROCEDURE NOTE THE PATIENT HAS A HISTORY OF CHRONIC LOW BACK PAIN. I EVALUATED THE PATIENT AND REVIEWED THE CHART. I WENT OVER THE RISKS, ALTERNATIVES, AND BENEFITS ASSOCIATED WITH THIS PROCEDURE. THE PATIENT WOULD LIKE TO PROCEED AND GIVE CONSENT TO PERFORMED THE PROCEDURE. THE PATIENT DENIES UNEXPLAINABLE WEIGHT LOSS, FEVER, CHILLS, OR NEW CHANGES IN URINARY OR BOWEL CONTROL. THE PATIENT IS COVID-19 NEGATIVE. THE PATIENT IS COVID-19 NEGATIVE DESCRIPTION OF PROCEDURE THE PATIENT WAS BROUGHT TO THE PROCEDURE ROOM AND PLACED IN THE PRONE POSITION. THE LUMBOSACRAL AREA WAS CLEANED WITH BETADINE SOLUTION AND DRAPED ASEPTICALLY. THE PROCEDURE WAS DONE UNDER STERILE CONDITIONS. A TIMEOUT WAS PERFORMED WHERE THE CONSENTED SITE WAS VERIFIED WITH EVERYONE IN THE ROOM. UNDER FLUOROSCOPIC GUIDANCE, THE TARGET POINT WAS SELECTED AT THE INTERLAMINAR LEVEL OF L3-L4. I CONFIRMED AGAIN THE SITE OF TARGET. LIDOCAINE WAS USED TO NUMB THE SKIN AND THE SUBCUTANEOUS TISSUE BELOW IT. EPIDURAL TUOHY NEEDLE, 17-GAUGE, WAS ADVANCED UNDER FLUOROSCOPIC GUIDANCE AND FOLLOWING PATIENT FEEDBACK UNTIL THE EPIDURAL SPACE WAS REACHED 8 CM DEEP INTO THE SKIN BY THE LOSS OF RESISTANCE TECHNIQUE. ISOVUE-M DYE 30%, 0.25 ML, WAS INJECTED SHOWING ADEQUATE SPREAD OF THE DYE. THEN, A SOLUTION OF 3 ML OF NORMAL SALINE WITH DEPO-MEDROL 40 MG WAS INJECTED SLOWLY FOLLOWING PATIENT FEEDBACK. THE MEDICATIONS WERE VERIFIED WITH THE NURSE. THERE WAS NO EVIDENCE OF BLOOD, PARESTHESIA OR CEREBROSPINAL FLUID DURING THE PROCEDURE. THE PATIENT WAS SENT TO THE RECOVERY ROOM. THE PATIENT WAS MOVING THE EXTREMITIES AND DOING WELL. THERE WERE NO COMPLICATIONS DURING THE PROCEDURE. ESTIMATED BLOOD LOSS WAS LESS THAN 5 ML. FLUOROSCOPY TIME WAS 10 SECONDS POST PROCEDURE NOTE THE PATIENT WILL BE SEEN IN A FOLLOW UP IN THE NEXT FEW WEEKS. I AM LOOKING FOR LONG LASTING RELIEF FOR THE PATIENT WITH THIS INTERVENTION. INSTRUCTIONS WERE GIVEN, QUESTIONS WERE ANSWERED, AND THE PATIENT EXPRESSED UNDERSTANDING AND AGREES WITH THE PLAN. I, ROS HALL, DOCUMENTED THE ABOVE INFORMATION ACTING A SCRIBE FOR DR. ROY. I HAVE REVIEWED THE ABOVE DOCUMENT, WRITTEN BY ROS HALL, PLANT BREEDER, AND I VERIFY THAT IT IS ACCURATE PROCEDURE CODES 78733 LUMBAR/SACRAL W/ IMAGING DISPOSITION & COMMUNICATION FOLLOW UP FOLLOW UP WITH BUSINESS LINE CONTROLLER (REASON: POST LUMBAR EPIDURAL STEROID INJECTION ) ELECTRONICALLY SIGNED BY KARO ROY MD, MD ON 10/19/2020 AT 01:49 PM EDT DISCLAIMER : THIS IS A VISIT SUMMARY EXTRACTED FROM THE [employer] CHART. IT IS NOT A COPY OF THE [employer] PROGRESS NOTE. LURDES
== END ==
LOC: M PAIN 11:40
PROVIDERS: ATTEND Anesthesiology
DX: M51.16 Intervertebral disc disorders with radiculopathy, lumbar region (principal); G43.909 Migraine, unspecified, not intractable, without status migrainosus; M79.7 Fibromyalgia; K21.9 Gastro-esophageal reflux disease without esophagitis; G47.00 Insomnia, unspecified; Z86.59 Personal history of other mental and behavioral disorders; Z88.5 Allergy status to narcotic agent; Z79.899 Other long term (current) drug therapy
CPT/HCPCS: 62323; J1030; Q9967

== ENCOUNTER → 2020-11-02 | Outpatient (CLI) | payer MEDICARE, MEDICAID ==
--- NOTE | 2020-11-04 04:31 | ECWPNPC ---
PATIENT NAME: CINDA NUR : 1975 GENDER: FEMALE VISIT DATE: 11/02/2020 DISCHARGE DATE: 11/02/20 1427 VISIT LOCKED DATE TIME: PHYSICIAN: GAUDENCIO LEZAMA RESOURCE: GAUDENCIO LEZAMA REASON FOR APPOINTMENT 1. POST LUMBAR EPIDURAL STEROID INJECTION HISTORY OF PRESENT ILLNESS DEPRESSION SCREENING: PHQ-9 LITTLE INTEREST OR PLEASURE IN DOING THINGSSEVERAL DAYS FEELING DOWN, DEPRESSED, OR HOPELESSSEVERAL DAYS TROUBLE FALLING OR STAYING ASLEEP, OR SLEEPING TOO MUCHMORE THAN HALF THE DAYS FEELING TIRED OR HAVING LITTLE ENERGYMORE THAN HALF THE DAYS POOR APPETITE OR OVEREATING MORE THAN HALF THE DAYS FEELING BAD ABOUT YOURSELF-OR THAT YOU ARE A FAILURE OR HAVE LET YOURSELF OR YOUR FAMILY DOWN MORE THAN HALF THE DAYS TROUBLE CONCENTRATING ON THINGS, SUCH READING THE NEWSPAPER OR WATCHING TELEVISION SEVERAL DAYS MOVING OR SPEAKING SO SLOWLY THAT OTHER PEOPLE COULD HAVE NOTICED. OR THE OPPOSITE- BEING SO FIDGETY OR RESTLESS THAT YOU HAVE BEEN MOVING AROUND A LOT MORE THAN USUALSEVERAL DAYS THOUGHTS THAT YOU WOULD BE BETTER OFF , OR OF HURTING YOURSELF IN SOME WAY?NOT AT ALL TOTAL SCORE:12 INTERPRETATIONMODERATE DEPRESSION PHQ-2 (2015 EDITION) LITTLE INTEREST OR PLEASURE IN DOING THINGS?SEVERAL DAYS FEELING DOWN, DEPRESSED, OR HOPELESS?SEVERAL DAYS TOTAL SCORE2 GENERAL: HERE FOR POST PROCEDURE FOLLOW-UP. HAD LUMBAR EPIDURAL STEROID INJECTION 10/18/2020. CONTINUES TO BENEFIT A LITTLE FROM THIS BUT SHE HAS BEEN OVERDOING LIFTING DURING MOVING PROCESS. SHE ALSO STATES SHE FELL OUT OF BED LAST NIGHT AND HAS A SLIGHT INCREASE IN PAIN. USES MEDICAL MARIJUANA. DISCUSSED HOME EXERCISE AND STRETCHING. DISCUSSED WALKING PROGRAM. -. FALL RISK SCREENING: SCREENING : NO FALLS REPORTED IN THE LAST YEAR. PAIN SCREENING: PATIENT HAS A COMPLAINT OF ACUTE OR CHRONIC PAIN :YES LOCATION OF PAIN:LOW BACK INTENSITY OF PAIN (SCALE OF 1 TO 10):8 WHAT DOES YOUR PAIN FEEL LIKE:ACHING DURATION:CONTINOUS, CONSTANT, ALL DAY PAIN IS INCREASED BY:ACTIVITIES PAIN IS DECREASED BY:OTHERS RESTING AND HEAT NURSING NOTE: -. PAIN CENTER INTAKE QUESTIONS: DO YOU HAVE A HISTORY OF MRSA? :NO DO YOU TAKE A BLOOD THINNERS? :NO DO YOU HAVE ANY BLEEDING DISORDERS? :NO ANY NEW NUMBNESS OR WEAKNESS IN YOUR LEGS OR ARMS? :NO ANY PACEMAKER,DEFIBRILLATOR, OR DORSAL COLUMN STIMULATOR? :NO DO YOU HAVE ANY RASHES OR OPEN SORES? :NO ARE YOU ALLERGIC TO IV DYE? :NO ARE YOU DIABETIC? :NO ANY NEW PROBLEMS WITH YOUR MEDICATIONS? :NO DO YOU PLAN TO RECEIVE A VACCINE IN THE NEXT 21 DAYS? :YES IF SO WHAT VACCINE AND WHEN? 1ST COVID 11/06/2020 DO YOU NEED ANY PRESCRIPTION? :NO DO YOU TAKE ANY IMMUNOSUPPRESSIVE MEDICATIONS? :YES PLAQUENIL IS THERE A CHANCE YOU COULD BE ? :NO ARE YOU BREAST FEEDING? :NO CURRENT MEDICATIONS TAKING BUPROPION HCL ER (XL) 150 MG TABLET EXTENDED RELEASE 24 HOUR 1 TABLET IN THE MORNING ORALLY ONCE A DAY TAKING OMEPRAZOLE 40 MG CAPSULE DELAYED RELEASE 1 CAPSULE ORALLY TWICE DAILY TAKING VERAPAMIL HCL ER 180 MG TABLET EXTENDED RELEASE 1 TABLET ORALLY ONCE A DAY TAKING VYVANSE 70 MG CAPSULE 1 CAPSULE IN THE MORNING ORALLY ONCE A DAY TAKING GABAPENTIN 600 MG TABLET 2 TABLETS ORALLY TWICE DAILY TAKING OXYBUTYNIN CHLORIDE 5 MG TABLET 1 TABLET ORALLY DAILY TAKING CLONAZEPAM 1 MG TABLET 1-2 TABLETS ORALLY TWICE DAILY NEEDED TAKING PRAZOSIN HCL 2 MG CAPSULE 1 CAPSULE AT BEDTIME ORALLY BEFORE BEDTIME TAKING TRAZODONE HCL 150 MG TABLET 1 TABLET AT BEDTIME ORALLY QHS PRN TAKING DEPAKOTE 1 CAP ORALLY 500MG BID TAKING MAXALT-SALES DEVELOPMENT SPECIALIST 10 MG TABLET DISINTEGRATING 1 TABLET ORALLY ONCE DAILY NEEDED TAKING DULOXETINE HCL 30 MG CAPSULE DELAYED RELEASE PARTICLES 1 CAPSULE ORALLY TWICE A DAY TAKING REXULTI 4 MG TABLET 1 TABLET ORALLY ONCE A DAY TAKING CYCLOBENZAPRINE HCL 10 MG TABLET 1 TABLET ORALLY THREE TIMES DAILY NEEDED TAKING MAY USE MEDICAL MARIJUANA TAKING MULTI VITAMIN DAILY - TABLET 1 TABLET ORALLY ONCE A DAY TAKING BIOTIN 1000 MCG TABLET CHEWABLE UNKNOWN DOSAGE ORALLY TAKING PLAQUENIL 200 MG TABLET 1 TAB ORALLY BID, NOTES: 10/18/20 0930 TAKING TIROSINT 200 MCG CAPSULE 1 CAPSULE ORAL ONCE A DAY TAKING MIRALAX - PACKET 1 PACKET MIXED WITH 8 OUNCES OF FLUID ORALLY 17 GRAMS IN OJ PRN ONCE A DAY TAKING TUMS CALCIUM FOR LIFE BONE 1000 UNITS ONCE A DAY TAKING PROBIOTIC - CAPSULE DIRECTED ORALLY GUMMIE NOT-TAKING IRON 325 (65 FE) MG TABLET 1 TABLET ORALLY 3 TIMES PER WEEK NOT-TAKING CALCIUM + D3 600-800 MG-UNIT TABLET 1 TABLET WITH A MEAL ORALLY ONCE A DAY MAGNESIUM, ZINC NOT-TAKING LEVOTHYROXINE SODIUM 175 MCG TABLET 1 TABLET ON AN EMPTY STOMACH IN THE MORNING ORALLY ONCE A DAY NOT-TAKING FOLIC ACID 1 MG TABLET 1 TABLET ORALLY ONCE A DAY NOT-TAKING METHOTREXATE SODIUM 2.5 MG TABLET 4 TABLETS DIRECTED ORALLY ONCE WEEKLY NOT-TAKING CARISOPRODOL 250 MG TABLET 1-3 DAILY ORAL NEEDED NOT-TAKING VITAMIN C 500 MG CAPSULE DIRECTED ORALLY NOT-TAKING HAIR SKIN AND NAILS FORMULA - TABLET DIRECTED ORALLY NOT-TAKING DOXYCYCLINE MONOHYDRATE 100 MG CAPSULE ORAL NOT-TAKING CULTURELLE IMMUNITY SUPPORT - CAPSULE ORAL MEDICATION LIST REVIEWED AND RECONCILED WITH THE PATIENT PAST MEDICAL HISTORY ARTHRITIS DEPRESSION ANXIETY HEADACHE MIGRAINE HEADACHES HYPERTENSION PSYCHIATRIC DISORDER THYROID DISEASE INSOMNIA PTSD FIBROMYALGIA ESOPHAGEAL REFLUX NIGHT [place] SYSTEMIC LUPUS ERYTHATOSUS LYME DISEASE PER 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 MAJOR DEPRESSIVE DISORDER BACK SPASMS KIDNEY DISEASE STAGE II ALLERGIES MORPHINE SULFATE: NAUSEA/PAIN - SIDE EFFECTS HYDROCODONE: ITCHING - SIDE EFFECTS SOCIAL HISTORY GENERAL: TOBACCO USE ARE YOU A:NONSMOKER LATEX QUESTIONNAIRE LATEX ALLERGY : HAVE YOU EVER DEVELOPED ANY TYPE OF REACTION AFTER HANDLING LATEX PRODUCTS SUCH RUBBER GLOVES, CONDOMS, DIAPHRAGMS, BALLOONS, SOCKS, OR UNDERWEAR?NO LATEX ALLERGY : HAVE YOU EVER DEVELOPED ANY TYPE OF REACTION DURING OR AFTER DENTAL APPOINTMENT, VAGINAL/RECTAL EXAMINATION, SURGICAL PROCEDURE, OR ANY OTHER EXPOSURE?NO LATEX RISK : HAVE YOU EVER HAD ANY DIFFICULTY BREATHING OR HIVES AFTER EATING OR HANDLING ANY FRUITS, OR VEGETABLES; SUCH KIWI, BANANAS, STONE FRUITS, OR CHESTNUTSNO LATEX RISK : DO YOU HAVE A PREVIOUS PERSONAL HISTORY OF MORE THAN NINE SURGERIES, SPINA BIFIDA, OR REPEATED CATHERIZATIONS? NO LATEX RISK : ARE YOU FREQUENTLY EXPOSED TO LATEX PRODUCTS IN YOUR OCCUPATION?NO DATE ASKED : 11/02/2020 ALCOHOL USE: YES. ALCOHOL SCREENING DID YOU HAVE A DRINK CONTAINING ALCOHOL IN THE PAST YEAR?YES HOW OFTEN DID YOU HAVE SIX OR MORE DRINKS ON ONE OCCASION IN THE PAST YEAR?NEVER (0 POINTS) HOW MANY DRINKS DID YOU HAVE ON A TYPICAL DAY WHEN YOU WERE DRINKING IN THE PAST YEAR?3 OR 4 (1 POINT) HOW OFTEN DID YOU HAVE A DRINK CONTAINING ALCOHOL IN THE PAST YEAR?MONTHLY OR LESS (1 POINT) POINTS2 INTERPRETATIONNEGATIVE RECREATIONAL DRUG USE DRUG USE?YES HOW OFTEN AND HOW MUCH? MEDICAL MARIJUANA SUBLINGUAL DROP TWICE DAILY NEEDED CAFFEINE CAFFEINE USE?YES COFFEE: 1 DAILY SODA 1 OCCASIONALLY ANABAPTIST ANABAPTIST NO RASTAFARI BELIEFS THAT WOULD IMPACT HEALTH CARE. LANGUAGE LANGUAGES SPOKEN:UZBEK EDUCATION LEVEL OF EDUCATION:HIGH SCHOOL LEARNING BARRIERS / SPECIAL NEEDS CHANGE FROM LAST VISIT?NO BARRIERS TO LEARNING?NO HEARING IMPAIRED?NO VISION IMPAIRED?YES :CORRECTIVE LENSES COGNITIVELY IMPAIRED?NO READINESS TO LEARN?YES LEARNING PREFERENCES?YES :DEMONSTRATION/VERBAL INSTRUCTION LEARNING CAPABILITIES PRESENT?YES EMOTIONAL BARRIERS?NO SPECIAL DEVICES?NO AMMONIA PRINT OPERATOR NEEDED?NO DOMESTIC VIOLENCE STATUS: DO YOU FEEL SAFE IN YOUR ENVIRONMENT?YES OCCUPATION: DISABELED. DIET: REGULAR. EXERCISE: , NO REGULAR EXERCISE. MARITAL STATUS: .. OTHERS AT HOME: CHILDREN. - PFS REFERRAL NEEDED?NO CLERGY REFERRAL NEEDED?NO PUBLIC HEALTH REFERRAL NEEDED?NO HAS THE PATIENT BEEN EDUCATED REGARDING HIS/HER PLAN OF CARE?YES HAS THE PATIENT BEEN EDUCATED REGARDING PAIN, THE RISK FOR PAIN, THE IMPORTANCE OF EFFECTIVE PAIN MANAGEMENT, AND THE PAIN ASSESSMENT PROCESS?YES HOUSING: OWNS HOME. ADVANCE DIRECTIVE ADVANCE DIRECTIVE DISCUSSED WITH PATIENT:YES STATES SHE HAS NO ADVANCED DIRECTIVES AND DECLINES INFORMATION ON HCP REVIEW OF SYSTEMS CONSTITUTIONAL: ANY RECENT FEVER NO . CHILLS NO . WEIGHT CHANGE OF UNKNOWN REASONS NO . GASTROENTEROLOGY: NEW UNEXPLAINABLE CHANGES IN BOWEL CONTROL NO . CONSTIPATION NO . GENITOURINARY: ANY NEW CHANGE IN BLADDER CONTROL? NO . NEUROLOGY: NEW ONSET DIZZINESS OR NEUROLOGICAL CHANGES NOT MENTIONED NO . NEW NUMBNESS OR PAIN PATTERNS NOT MENTIONED AND PERTINENT TO TODAY'S VISIT NO . CARDIOLOGY: NEW CHEST PRESSURE NO . PATIENT DENIES NO . RESPIRATORY: UNEXPLAINABLE COUGH NO . NEW SHORTNESS OF BREATH NO . VITAL SIGNS WT 210 LBS, HT 64 IN, BMI 36.04 INDEX, BP 138/94 MM HG, HR 79 /MIN, RR 18 /MIN, TEMP 97.4 F, OXYGEN SAT % 100%, SAFE IN ENV? (Y/N) YEST.TARIQ HERNANDEZ. EXAMINATION GENERAL EXAMINATION: GENERALAWAKE,ALERT ,PLEASANT . PSYCHAFFECT NORMAL . LUNGS:LUNG SHEPARD ARE CLEAR TO AUSCULTATION BILATERALLY. GOOD MOVEMENT OF AIR . HEART:S1, S2 IN A REGULAR RATE AND RHYTHM. NO SIGNIFICANT MURMURS, RUBS OR GALLOPS NOTED . ASSESSMENTS INTERVERTEBRAL DISC DISORDERS WITH RADICULOPATHY, LUMBAR REGION - M51.16 (PRIMARY) OTHER CHRONIC PAIN - G89.29 TREATMENT INTERVERTEBRAL DISC DISORDERS WITH RADICULOPATHY, LUMBAR REGION NOTES: PATIENT WAS ADVISED TO START A WALKING PROGRAM TO STRENGTHEN LUMBAR PARASPINAL MUSCLES AND IMPROVE MOBILITY. THEY WERE ADVISED THAT THIS WILL IMPROVE WEIGHT LOSS AND ALSO DEPRESSION/FIBROMYALGIA SYMPTOMS. ADVISED TO WALK 10 MINUTES EVERY OTHER DAY ON A FLAT SURFACE. EMPHASIZED THE IMPORTANCE OF DOING THIS CONSISTANTLY AND NOT SPORATICALLY TO AVOID INJURY. DO HOME STRETCHING EXERCISES TWICE A DAY PRINTED INFORMATION ON LOWER BACK EXERCISES FOR PATIENT CAITLIN HERNANDEZ. OTHER CHRONIC PAIN PAIN PROCEDURE LOGDATE OF PROCEDURE1PROCEDURE:LUMBAR EPIDURAL STEROID INJECTIONAMOUNT OF PRE SEDATEVALIUM 10MGRESULT:SOME IMPROVEMENT CONTINUES TODAY PROCEDURE CODES FA211 ESTABILISHED PATIENT [facility] FACILITY CHARGE DISPOSITION & COMMUNICATION FOLLOW UP 2 MONTHS (REASON: F/U LOW BACK PAIN/HOME STRETCHING EXCERSISES /WALKING PROGRAM) ELECTRONICALLY SIGNED BY LALI PATTEN ON 11/03/2020 AT 09:21 AM EDT DISCLAIMER : THIS IS A VISIT SUMMARY EXTRACTED FROM THE [employer] CHART. IT IS NOT A COPY OF THE [employer] PROGRESS NOTE. LURDES
== END ==
LOC: M PAIN 13:30
PROVIDERS: ATTEND Nurse Practitioner Family
DX: M51.16 Intervertebral disc disorders with radiculopathy, lumbar region (principal); G89.29 Other chronic pain; G43.909 Migraine, unspecified, not intractable, without status migrainosus; G47.00 Insomnia, unspecified; M79.7 Fibromyalgia; K21.9 Gastro-esophageal reflux disease without esophagitis; Z86.59 Personal history of other mental and behavioral disorders; Z88.5 Allergy status to narcotic agent; Z79.899 Other long term (current) drug therapy

== ENCOUNTER → 2021-01-02 | Outpatient (CLI) | payer MEDICARE, MEDICAID ==
--- NOTE | 2021-01-06 05:03 | ECWPNPC ---
PATIENT NAME: CINDA NUR : 1975 GENDER: FEMALE VISIT DATE: 01/02/2021 DISCHARGE DATE: 01/02/21 1422 VISIT LOCKED DATE TIME: PHYSICIAN: GAUDENCIO LEZAMA RESOURCE: GAUDENCIO LEZAMA REASON FOR APPOINTMENT 1. F/U LOW BACK PAIN/HOME STRETCHING EXCERSISES /WALKING PROGRAM HISTORY OF PRESENT ILLNESS GENERAL: HERE FOR FOLLOW-UP OF CHRONIC LOW BACK PAIN. PATIENT HAS BEEN DOING HOME EXERCISE, STRETCHING AND WALKING OVER THE PAST FEW MONTHS. PAIN CONTINUES TO BE PROBLEMATIC. PAIN IS LOCATED ACROSS THE LOWER BACK WITH INTERMITTENT BILATERAL LOWER EXTREMITY RADICULAR SYMPTOMS RIGHT GREATER THAN LEFT. HAS RESPONDED WELL TO LUMBAR EPIDURAL STEROID INJECTION IN THE PAST. DISCUSSED TREATMENT OPTIONS. REVIEWED MRI OF THE LS-SPINE. -. FALL RISK SCREENING: SCREENING : NO FALLS REPORTED IN THE LAST YEAR. PAIN SCREENING: PATIENT HAS A COMPLAINT OF ACUTE OR CHRONIC PAIN :YES LOCATION OF PAIN:LOW BACK INTENSITY OF PAIN (SCALE OF 1 TO 10):4 WHAT DOES YOUR PAIN FEEL LIKE:ACHING, BURNING, CONTINOUS, TENDER, THROBBING, SORE, SHOOTING DURATION:CONTINOUS, CONSTANT, AWAKENS FROM SLEEP PAIN IS INCREASED BY:ACTIVITIES, PROLONGED STANDING, OTHERS PROLONGED SITTING PAIN IS DECREASED BY:OTHERS LAYING DOWN, HEATING PAD PAIN HAS INTERFERED WITH THE FOLLOWING: EVERYTHING NURSING NOTE: -. PAIN CENTER INTAKE QUESTIONS: DO YOU HAVE A HISTORY OF MRSA? :NO DO YOU TAKE A BLOOD THINNERS? :NO DO YOU HAVE ANY BLEEDING DISORDERS? :NO ANY NEW NUMBNESS OR WEAKNESS IN YOUR LEGS OR ARMS? :NO ANY PACEMAKER,DEFIBRILLATOR, OR DORSAL COLUMN STIMULATOR? :NO DO YOU HAVE ANY RASHES OR OPEN SORES? :NO ARE YOU ALLERGIC TO IV DYE? :NO ARE YOU DIABETIC? :NO ANY NEW PROBLEMS WITH YOUR MEDICATIONS? :NO HAVE YOU RECEIVED A VACCINE IN THE PAST 30 DAYS? :YES IF SO WHAT VACCINE AND WHEN? 2ND COVID (MODERNA) 12/08/20 DO YOU PLAN TO RECEIVE A VACCINE IN THE NEXT 21 DAYS? :NO DO YOU NEED ANY PRESCRIPTION? :NO DO YOU TAKE ANY IMMUNOSUPPRESSIVE MEDICATIONS? :YES PLAQUENIL IS THERE A CHANCE YOU COULD BE ? :NO ARE YOU BREAST FEEDING? :NO CURRENT MEDICATIONS TAKING BUPROPION HCL ER (XL) 150 MG TABLET EXTENDED RELEASE 24 HOUR 1 TABLET IN THE MORNING ORALLY ONCE A DAY TAKING OMEPRAZOLE 40 MG CAPSULE DELAYED RELEASE 1 CAPSULE ORALLY TWICE DAILY TAKING VERAPAMIL HCL ER 180 MG TABLET EXTENDED RELEASE 1 TABLET ORALLY ONCE A DAY TAKING VYVANSE 70 MG CAPSULE 1 CAPSULE IN THE MORNING ORALLY ONCE A DAY TAKING GABAPENTIN 600 MG TABLET 2 TABLETS EACH A.M., 1 TABLET MID-AFTERNOON, 2 TABLETS EACH EVENING ORALLY TAKING OXYBUTYNIN CHLORIDE 5 MG TABLET 1 TABLET ORALLY DAILY TAKING CLONAZEPAM 1 MG TABLET 1-2 TABLETS ORALLY TWICE DAILY NEEDED TAKING PRAZOSIN HCL 2 MG CAPSULE 1 CAPSULE AT BEDTIME ORALLY BEFORE BEDTIME TAKING TRAZODONE HCL 150 MG TABLET 1 TABLET AT BEDTIME ORALLY QHS PRN TAKING DEPAKOTE 1 CAP ORALLY 500MG BID TAKING MAXALT-SOLE ROUNDER 10 MG TABLET DISINTEGRATING 1 TABLET ORALLY ONCE DAILY NEEDED TAKING DULOXETINE HCL 30 MG CAPSULE DELAYED RELEASE PARTICLES 1 CAPSULE ORALLY TWICE A DAY TAKING REXULTI 4 MG TABLET 1 TABLET ORALLY ONCE A DAY TAKING CYCLOBENZAPRINE HCL 10 MG TABLET 1 TABLET ORALLY THREE TIMES DAILY NEEDED TAKING MAY USE MEDICAL MARIJUANA TAKING MULTI VITAMIN DAILY - TABLET 1 TABLET ORALLY ONCE A DAY TAKING BIOTIN 1000 MCG TABLET CHEWABLE UNKNOWN DOSAGE ORALLY DAILY TAKING TIROSINT 200 MCG CAPSULE 1 CAPSULE ORAL ONCE A DAY TAKING MIRALAX - PACKET 1 PACKET MIXED WITH 8 OUNCES OF FLUID ORALLY 17 GRAMS IN OJ PRN ONCE A DAY TAKING TUMS CALCIUM FOR LIFE BONE 1000 UNITS ONCE A DAY TAKING PROBIOTIC - CAPSULE DIRECTED ORALLY GUMMIE DAILY TAKING HYDROXYCHLOROQUINE SULFATE 200 MG TABLET 1 TABLET WITH FOOD OR MILK ORALLY TWICE DAILY TAKING VERITO TENNIS ELBOW BRACE - MISCELLANEOUS DIRECTED TOPICALLY DAILY TAKING VITAMIN D-3 125 MCG (5000 UT) TABLET 1 TAB ORALLY DAILY TAKING MAY USE TUMERIC 1 CAP ORALLY DAILY TAKING DOXYCYCLINE MONOHYDRATE 100 MG CAPSULE ORAL NOT-TAKING IRON 325 (65 FE) MG TABLET 1 TABLET ORALLY 3 TIMES PER WEEK NOT-TAKING CALCIUM + D3 600-800 MG-UNIT TABLET 1 TABLET WITH A MEAL ORALLY ONCE A DAY MAGNESIUM, ZINC NOT-TAKING LEVOTHYROXINE SODIUM 175 MCG TABLET 1 TABLET ON AN EMPTY STOMACH IN THE MORNING ORALLY ONCE A DAY NOT-TAKING FOLIC ACID 1 MG TABLET 1 TABLET ORALLY ONCE A DAY NOT-TAKING METHOTREXATE SODIUM 2.5 MG TABLET 4 TABLETS DIRECTED ORALLY ONCE WEEKLY NOT-TAKING CARISOPRODOL 250 MG TABLET 1-3 DAILY ORAL NEEDED NOT-TAKING VITAMIN C 500 MG CAPSULE DIRECTED ORALLY NOT-TAKING HAIR SKIN AND NAILS FORMULA - TABLET DIRECTED ORALLY NOT-TAKING CULTURELLE IMMUNITY SUPPORT - CAPSULE ORAL MEDICATION LIST REVIEWED AND RECONCILED WITH THE PATIENT PAST MEDICAL HISTORY ARTHRITIS DEPRESSION ANXIETY HEADACHE MIGRAINE HEADACHES HYPERTENSION PSYCHIATRIC DISORDER THYROID DISEASE INSOMNIA PTSD FIBROMYALGIA ESOPHAGEAL REFLUX NIGHT [place] SYSTEMIC LUPUS ERYTHATOSUS LYME DISEASE PER 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 1 SON(S) , 2 DAUGHTER(S) - HEALTHY. MOTHER AND FATHER HEALTHYGRANDMOTHER STROKE, DEMENTIA. SOCIAL HISTORY GENERAL: TOBACCO USE ARE YOU A:NONSMOKER LATEX QUESTIONNAIRE LATEX ALLERGY : HAVE YOU EVER DEVELOPED ANY TYPE OF REACTION AFTER HANDLING LATEX PRODUCTS SUCH RUBBER GLOVES, CONDOMS, DIAPHRAGMS, BALLOONS, SOCKS, OR UNDERWEAR?NO LATEX ALLERGY : HAVE YOU EVER DEVELOPED ANY TYPE OF REACTION DURING OR AFTER DENTAL APPOINTMENT, VAGINAL/RECTAL EXAMINATION, SURGICAL PROCEDURE, OR ANY OTHER EXPOSURE?NO LATEX RISK : HAVE YOU EVER HAD ANY DIFFICULTY BREATHING OR HIVES AFTER EATING OR HANDLING ANY FRUITS, OR VEGETABLES; SUCH KIWI, BANANAS, STONE FRUITS, OR CHESTNUTSNO LATEX RISK : DO YOU HAVE A PREVIOUS PERSONAL HISTORY OF MORE THAN NINE SURGERIES, SPINA BIFIDA, OR REPEATED CATHERIZATIONS? NO LATEX RISK : ARE YOU FREQUENTLY EXPOSED TO LATEX PRODUCTS IN YOUR OCCUPATION?NO DATE ASKED : 01/02/2021 ALCOHOL USE: YES. ALCOHOL SCREENING DID YOU HAVE A DRINK CONTAINING ALCOHOL IN THE PAST YEAR?YES HOW OFTEN DID YOU HAVE SIX OR MORE DRINKS ON ONE OCCASION IN THE PAST YEAR?NEVER (0 POINTS) HOW MANY DRINKS DID YOU HAVE ON A TYPICAL DAY WHEN YOU WERE DRINKING IN THE PAST YEAR?3 OR 4 (1 POINT) HOW OFTEN DID YOU HAVE A DRINK CONTAINING ALCOHOL IN THE PAST YEAR?MONTHLY OR LESS (1 POINT) POINTS2 INTERPRETATIONNEGATIVE RECREATIONAL DRUG USE DRUG USE?YES HOW OFTEN AND HOW MUCH? MEDICAL MARIJUANA SUBLINGUAL DROP TWICE DAILY NEEDED CAFFEINE CAFFEINE USE?YES COFFEE: 1 DAILY SODA 1 OCCASIONALLY QUAKER QUAKER NO SABIANISM BELIEFS THAT WOULD IMPACT HEALTH CARE. LANGUAGE LANGUAGES SPOKEN:ALGERIAN EDUCATION LEVEL OF EDUCATION:HIGH SCHOOL LEARNING BARRIERS / SPECIAL NEEDS CHANGE FROM LAST VISIT?NO BARRIERS TO LEARNING?NO HEARING IMPAIRED?NO VISION IMPAIRED?YES :CORRECTIVE LENSES COGNITIVELY IMPAIRED?NO READINESS TO LEARN?YES LEARNING PREFERENCES?YES :DEMONSTRATION/VERBAL INSTRUCTION LEARNING CAPABILITIES PRESENT?YES EMOTIONAL BARRIERS?NO SPECIAL DEVICES?NO LABORATORY CHIEF NEEDED?NO DOMESTIC VIOLENCE STATUS: DO YOU FEEL SAFE IN YOUR ENVIRONMENT?YES OCCUPATION: DISABELED. DIET: REGULAR. EXERCISE: , NO REGULAR EXERCISE. MARITAL STATUS: .. OTHERS AT HOME: CHILDREN. - PFS REFERRAL NEEDED?NO CLERGY REFERRAL NEEDED?NO PUBLIC HEALTH REFERRAL NEEDED?NO HAS THE PATIENT BEEN EDUCATED REGARDING HIS/HER PLAN OF CARE?YES HAS THE PATIENT BEEN EDUCATED REGARDING PAIN, THE RISK FOR PAIN, THE IMPORTANCE OF EFFECTIVE PAIN MANAGEMENT, AND THE PAIN ASSESSMENT PROCESS?YES HOUSING: OWNS HOME. ADVANCE DIRECTIVE ADVANCE DIRECTIVE DISCUSSED WITH PATIENT:YES STATES SHE HAS NO ADVANCED DIRECTIVES AND DECLINES INFORMATION ON HCP HOSPITALIZATION/MAJOR DIAGNOSTIC PROCEDURE CHILDBIRTH KIDNEY INFECTION SURGERIES REVIEW OF SYSTEMS CONSTITUTIONAL: ANY RECENT FEVER NO . CHILLS NO . WEIGHT CHANGE OF UNKNOWN REASONS NO . GASTROENTEROLOGY: NEW UNEXPLAINABLE CHANGES IN BOWEL CONTROL NO . CONSTIPATION NO . GENITOURINARY: ANY NEW CHANGE IN BLADDER CONTROL? NO . NEUROLOGY: NEW ONSET DIZZINESS OR NEUROLOGICAL CHANGES NOT MENTIONED NO . NEW NUMBNESS OR PAIN PATTERNS NOT MENTIONED AND PERTINENT TO TODAY'S VISIT NO . CARDIOLOGY: NEW CHEST PRESSURE NO . PATIENT DENIES NO . RESPIRATORY: UNEXPLAINABLE COUGH NO . NEW SHORTNESS OF BREATH NO . VITAL SIGNS WT 207.2 LBS, HT 64 IN, BMI 35.56 INDEX, BP 130/75 MM HG, HR 67 /MIN, RR 16 /MIN, TEMP 97.7 F, OXYGEN SAT % 100%, SAFE IN ENV? (Y/N) Y, NA INITIALS DE 13:30, REVIEWED BY: Sandra ARTIS. EXAMINATION GENERAL EXAMINATION: GENERAL AWAKE,ALERT ,PLEASANT . PSYCH AFFECT NORMAL . LUNGS: LUNG SHEPARD ARE CLEAR TO AUSCULTATION BILATERALLY. GOOD MOVEMENT OF AIR . HEART: S1, S2 IN A REGULAR RATE AND RHYTHM. NO SIGNIFICANT MURMURS, RUBS OR GALLOPS NOTED . LUMBAR: PALPATION: + FOR PAIN OVER L/S SPINE. + FOR PAIN OVER L/S PARASPINALS MODIFIED SLE: POSITIVE OVER LEFT LEG AT 45 DEGREES. DIAGNOSTIC TESTS REVIEWEDMRI L/S SPINE. 2019 . ASSESSMENTS INTERVERTEBRAL DISC DISORDERS WITH RADICULOPATHY, LUMBAR REGION - M51.16 (PRIMARY) TREATMENT INTERVERTEBRAL DISC DISORDERS WITH RADICULOPATHY, LUMBAR REGION NOTES: LUMBAR EPIDURAL STERIOD INJECTION.PATIENT IS CHOOSING NOT TO HOLD PLAQUENIL 200MG BID FOR PROCEDURE.SHE IS AWARE OF INCREASE RISK OF INFECTION ASSOCIATED WITH BEING ON THIS MEDICATION AND RECIEVING A LUMBAR EPIDURAL STEROID INJECTION. CLINICAL NOTES: PREPROCEDURE AND PROCEDURE INFORMATION PRINTED AND PROVIDED TO PATIENT. PATIENT VERBALIZED AN UNDERSTANDING. MIKAYLA ROSAS MA. PROCEDURE CODES [id number] ESTABILISHED PATIENT [facility] CHARGE DISPOSITION & COMMUNICATION FOLLOW UP POST (REASON: LUMBAR EPIDURAL STERIOD INJECTION) ELECTRONICALLY SIGNED BY LALI PATTEN ON 01/05/2021 AT 09:52 AM EDT DISCLAIMER : THIS IS A VISIT SUMMARY EXTRACTED FROM THE [facility] CHART. IT IS NOT A COPY OF THE [facility] PROGRESS NOTE. LURDES
== END ==
LOC: M PAIN 13:30
PROVIDERS: ATTEND Nurse Practitioner Family
DX: M51.16 Intervertebral disc disorders with radiculopathy, lumbar region (principal); G89.29 Other chronic pain; G43.909 Migraine, unspecified, not intractable, without status migrainosus; G47.00 Insomnia, unspecified; M79.7 Fibromyalgia; K21.9 Gastro-esophageal reflux disease without esophagitis; Z86.59 Personal history of other mental and behavioral disorders; Z88.5 Allergy status to narcotic agent; Z79.899 Other long term (current) drug therapy

== ENCOUNTER → 2021-01-25 | Outpatient (REF) | payer MEDICARE, MEDICAID ==
[2021-01-25 20:35] LABS: BACTERIA, URINE AUTO NEGATIVE (NEGATIVE); MUCUS, URINE SMALL (NEGATIVE); RBC, URINE AUTO 16 /HPF (0-3); SQUAMOUS EPITHELIAL CELL UR AU 1 /HPF (0-6); WBC, URINE AUTO 1 /HPF (0-3)
== END ==
LOC: M LAB REF 17:02
PROVIDERS: ATTEND Internal Medicine Nephrology
DX: R31.29 Other microscopic hematuria (principal); E83.42 Hypomagnesemia

== ENCOUNTER → 2021-01-26 | Outpatient (CLI) | payer MEDICARE, MEDICAID | LOC: M LABSMTC 11:35 | PROVIDERS: ATTEND Anesthesiology | DX: Z20.822 Contact with and (suspected) exposure to COVID-19 (principal) ==

== ENCOUNTER → 2021-01-31 | Outpatient (CLI) | payer MEDICARE, OTHER ==
--- NOTE | 2021-01-31 15:14 | REP ---
INDICATION: LESI. COMPARISON: None. TECHNIQUE: Two views. 13.0 seconds of fluoroscopy time is reported. FINDINGS: A sequence of 2 last image hold fluoroscopically obtained spot radiograph(s) of the lumbar spine document(s) needle position(s) and contrast injection associated with injection procedure. IMPRESSION: Procedural imaging. <Electronically signed by Jj Ruff > 01/31/21 [id number]
--- NOTE | 2021-02-03 04:46 | ECWPNPC ---
PATIENT NAME: CINDA NUR : 1975 GENDER: FEMALE VISIT DATE: 01/31/2021 DISCHARGE DATE: 01/31/21 1358 VISIT LOCKED DATE TIME: PHYSICIAN: KARO ROY MD RESOURCE: KARO RYO MD REASON FOR APPOINTMENT 1. LUMBAR EPIDURAL STERIOD INJECTION HISTORY OF PRESENT ILLNESS GENERAL: -. FALL RISK SCREENING: SCREENING : NO FALLS REPORTED IN THE LAST YEAR. PAIN SCREENING: PATIENT HAS A COMPLAINT OF ACUTE OR CHRONIC PAIN :YES LOCATION OF PAIN:LOW BACK INTENSITY OF PAIN (SCALE OF 1 TO 10):7 WHAT DOES YOUR PAIN FEEL LIKE:ACHING, BURNING, SORE DURATION:CONTINOUS, AWAKENS FROM SLEEP PAIN IS INCREASED BY:ACTIVITIES, PROLONGED STANDING, OTHERS PROLONGED SITTING PAIN IS DECREASED BY:USE OF PAIN MEDICATIONS, OTHERS LAYING DOWN, HEATING PAD PLAN/GOALS/TREATMENT/INTERVENTION/FOLLOW UP:SEE PLAN PAIN CENTER INTAKE QUESTIONS: DO YOU HAVE A HISTORY OF MRSA? :NO DO YOU TAKE A BLOOD THINNERS? :NO DO YOU HAVE ANY BLEEDING DISORDERS? :NO ANY NEW NUMBNESS OR WEAKNESS IN YOUR LEGS OR ARMS? :NO ANY PACEMAKER,DEFIBRILLATOR, OR DORSAL COLUMN STIMULATOR? :NO DO YOU HAVE ANY RASHES OR OPEN SORES? :NO ARE YOU ALLERGIC TO IV DYE? :NO ARE YOU DIABETIC? :NO ANY NEW PROBLEMS WITH YOUR MEDICATIONS? :NO HAVE YOU RECEIVED A VACCINE IN THE PAST 30 DAYS? :NO DO YOU PLAN TO RECEIVE A VACCINE IN THE NEXT 21 DAYS? :NO DO YOU TAKE ANY IMMUNOSUPPRESSIVE MEDICATIONS? :YES HYDROXYCHLORIQUINE FOR LUPUS ANY HISTORY OF SEIZURES? :NO ANY HISTORY OF CARDIAC ISSUES OR EVENTS? :NO DO YOU HAVE ANY KIDNEY OR LIVER DISEASE? :YES 2ND STAGE KIDNEY DISEASE DO YOU HAVE SLEEP APNEA? :NO ANY RECENT HEAD INJURY? :NO DO YOU HAVE ANY NEW INFECTIONS? :NO IS THERE A CHANCE YOU COULD BE ? :NO ARE YOU BREAST FEEDING? :NO WHEN DID YOU LAST EAT? : 01/30/211929 WHEN DID YOU LAST DRINK? : 929 WHAT DID YOU LAST DRINK? : WATER NAME OF PERSON DRIVING YOU HOME? : MOTHER DO YOU HAVE ANY OTHER QUESTIONS OR CONCERNS? : NO CURRENT MEDICATIONS TAKING BUPROPION HCL ER (XL) 150 MG TABLET EXTENDED RELEASE 24 HOUR 1 TABLET IN THE MORNING ORALLY ONCE A DAY TAKING OMEPRAZOLE 40 MG CAPSULE DELAYED RELEASE 1 CAPSULE ORALLY TWICE DAILY TAKING VERAPAMIL HCL ER 180 MG TABLET EXTENDED RELEASE 1 TABLET ORALLY ONCE A DAY, NOTES: 929 TAKING VYVANSE 70 MG CAPSULE 1 CAPSULE IN THE MORNING ORALLY ONCE A DAY TAKING GABAPENTIN 600 MG TABLET 2 TABLETS EACH A.M., 1 TABLET MID-AFTERNOON, 2 TABLETS EACH EVENING ORALLY , NOTES: 929 TAKING OXYBUTYNIN CHLORIDE 5 MG TABLET 1 TABLET ORALLY DAILY TAKING CLONAZEPAM 1 MG TABLET 1-2 TABLETS ORALLY TWICE DAILY NEEDED, NOTES: 01/30/21 PM TAKING PRAZOSIN HCL 2 MG CAPSULE 1 CAPSULE AT BEDTIME ORALLY BEFORE BEDTIME TAKING TRAZODONE HCL 150 MG TABLET 1 TABLET AT BEDTIME ORALLY QHS PRN TAKING DEPAKOTE 1 CAP ORALLY 500MG BID, NOTES: 01/30/21 PM TAKING MAXALT-SPACE AND STORAGE CLERK 10 MG TABLET DISINTEGRATING 1 TABLET ORALLY ONCE DAILY NEEDED, NOTES: NONE RECENT TAKING DULOXETINE HCL 30 MG CAPSULE DELAYED RELEASE PARTICLES 1 CAPSULE ORALLY TWICE A DAY, NOTES: 929 TAKING REXULTI 4 MG TABLET 1 TABLET ORALLY ONCE A DAY TAKING CYCLOBENZAPRINE HCL 10 MG TABLET 1 TABLET ORALLY THREE TIMES DAILY NEEDED, NOTES: 01/30/21 PM TAKING MAY USE MEDICAL MARIJUANA TAKING MULTI VITAMIN DAILY - TABLET 1 TABLET ORALLY ONCE A DAY TAKING BIOTIN 1000 MCG TABLET CHEWABLE UNKNOWN DOSAGE ORALLY DAILY TAKING TIROSINT 200 MCG CAPSULE 1 CAPSULE ORAL ONCE A DAY TAKING MIRALAX - PACKET 1 PACKET MIXED WITH 8 OUNCES OF FLUID ORALLY 17 GRAMS IN OJ PRN ONCE A DAY TAKING TUMS CALCIUM FOR LIFE BONE 1000 UNITS ONCE A DAY TAKING PROBIOTIC - CAPSULE DIRECTED ORALLY GUMMIE DAILY TAKING HYDROXYCHLOROQUINE SULFATE 200 MG TABLET 1 TABLET WITH FOOD OR MILK ORALLY TWICE DAILY, NOTES: NOT BEING HELD - 929 TAKING VERITO TENNIS ELBOW BRACE - MISCELLANEOUS DIRECTED TOPICALLY DAILY TAKING VITAMIN D-3 125 MCG (5000 UT) TABLET 1 TAB ORALLY DAILY TAKING MAY USE TUMERIC 1 CAP ORALLY DAILY NOT-TAKING DOXYCYCLINE MONOHYDRATE 100 MG CAPSULE ORAL NOT-TAKING IRON 325 (65 FE) MG TABLET 1 TABLET ORALLY 3 TIMES PER WEEK NOT-TAKING CALCIUM + D3 600-800 MG-UNIT TABLET 1 TABLET WITH A MEAL ORALLY ONCE A DAY MAGNESIUM, ZINC NOT-TAKING LEVOTHYROXINE SODIUM 175 MCG TABLET 1 TABLET ON AN EMPTY STOMACH IN THE MORNING ORALLY ONCE A DAY NOT-TAKING FOLIC ACID 1 MG TABLET 1 TABLET ORALLY ONCE A DAY NOT-TAKING METHOTREXATE SODIUM 2.5 MG TABLET 4 TABLETS DIRECTED ORALLY ONCE WEEKLY NOT-TAKING CARISOPRODOL 250 MG TABLET 1-3 DAILY ORAL NEEDED NOT-TAKING VITAMIN C 500 MG CAPSULE DIRECTED ORALLY NOT-TAKING HAIR SKIN AND NAILS FORMULA - TABLET DIRECTED ORALLY NOT-TAKING CULTURELLE IMMUNITY SUPPORT - CAPSULE ORAL MEDICATION LIST REVIEWED AND RECONCILED WITH THE PATIENT PAST MEDICAL HISTORY ARTHRITIS DEPRESSION ANXIETY HEADACHE MIGRAINE HEADACHES HYPERTENSION PSYCHIATRIC DISORDER THYROID DISEASE INSOMNIA PTSD FIBROMYALGIA ESOPHAGEAL REFLUX NIGHT [place] SYSTEMIC LUPUS ERYTHATOSUS LYME DISEASE PER 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 MAJOR DEPRESSIVE DISORDER BACK SPASMS KIDNEY DISEASE STAGE II ALLERGIES MORPHINE SULFATE: NAUSEA/PAIN - SIDE EFFECTS HYDROCODONE: ITCHING - SIDE EFFECTS SOCIAL HISTORY GENERAL: TOBACCO USE ARE YOU A:NONSMOKER LATEX QUESTIONNAIRE LATEX ALLERGY : HAVE YOU EVER DEVELOPED ANY TYPE OF REACTION AFTER HANDLING LATEX PRODUCTS SUCH RUBBER GLOVES, CONDOMS, DIAPHRAGMS, BALLOONS, SOCKS, OR UNDERWEAR?NO LATEX ALLERGY : HAVE YOU EVER DEVELOPED ANY TYPE OF REACTION DURING OR AFTER DENTAL APPOINTMENT, VAGINAL/RECTAL EXAMINATION, SURGICAL PROCEDURE, OR ANY OTHER EXPOSURE?NO LATEX RISK : HAVE YOU EVER HAD ANY DIFFICULTY BREATHING OR HIVES AFTER EATING OR HANDLING ANY FRUITS, OR VEGETABLES; SUCH KIWI, BANANAS, STONE FRUITS, OR CHESTNUTSNO LATEX RISK : DO YOU HAVE A PREVIOUS PERSONAL HISTORY OF MORE THAN NINE SURGERIES, SPINA BIFIDA, OR REPEATED CATHERIZATIONS? NO LATEX RISK : ARE YOU FREQUENTLY EXPOSED TO LATEX PRODUCTS IN YOUR OCCUPATION?NO DATE ASKED : 01/30/2021 ALCOHOL USE: YES. ALCOHOL SCREENING DID YOU HAVE A DRINK CONTAINING ALCOHOL IN THE PAST YEAR?YES HOW OFTEN DID YOU HAVE SIX OR MORE DRINKS ON ONE OCCASION IN THE PAST YEAR?NEVER (0 POINTS) HOW MANY DRINKS DID YOU HAVE ON A TYPICAL DAY WHEN YOU WERE DRINKING IN THE PAST YEAR?3 OR 4 (1 POINT) HOW OFTEN DID YOU HAVE A DRINK CONTAINING ALCOHOL IN THE PAST YEAR?MONTHLY OR LESS (1 POINT) POINTS2 INTERPRETATIONNEGATIVE RECREATIONAL DRUG USE DRUG USE?YES HOW OFTEN AND HOW MUCH? MEDICAL MARIJUANA SUBLINGUAL DROP TWICE DAILY NEEDED CAFFEINE CAFFEINE USE?YES COFFEE: 1 DAILY SODA 1 OCCASIONALLY ADVENTIST ADVENTIST NO BAPTIST BELIEFS THAT WOULD IMPACT HEALTH CARE. LANGUAGE LANGUAGES SPOKEN:ECUADOREAN EDUCATION LEVEL OF EDUCATION:HIGH SCHOOL LEARNING BARRIERS / SPECIAL NEEDS CHANGE FROM LAST VISIT?NO BARRIERS TO LEARNING?NO HEARING IMPAIRED?NO VISION IMPAIRED?YES :CORRECTIVE LENSES COGNITIVELY IMPAIRED?NO READINESS TO LEARN?YES LEARNING PREFERENCES?YES :DEMONSTRATION/VERBAL INSTRUCTION LEARNING CAPABILITIES PRESENT?YES EMOTIONAL BARRIERS?NO SPECIAL DEVICES?NO COMPONENT ENGINEER NEEDED?NO DOMESTIC VIOLENCE STATUS: DO YOU FEEL SAFE IN YOUR ENVIRONMENT?YES OCCUPATION: DISABELED. DIET: REGULAR. EXERCISE: , NO REGULAR EXERCISE. MARITAL STATUS: .. OTHERS AT HOME: CHILDREN. - PFS REFERRAL NEEDED?NO CLERGY REFERRAL NEEDED?NO PUBLIC HEALTH REFERRAL NEEDED?NO HAS THE PATIENT BEEN EDUCATED REGARDING HIS/HER PLAN OF CARE?YES HAS THE PATIENT BEEN EDUCATED REGARDING PAIN, THE RISK FOR PAIN, THE IMPORTANCE OF EFFECTIVE PAIN MANAGEMENT, AND THE PAIN ASSESSMENT PROCESS?YES HOUSING: OWNS HOME. ADVANCE DIRECTIVE ADVANCE DIRECTIVE DISCUSSED WITH PATIENT:YES STATES SHE HAS NO ADVANCED DIRECTIVES AND DECLINES INFORMATION ON HCP VITAL SIGNS WT 210.6 LBS, HT 64 IN, BMI 36.15 INDEX, BP 125/81 MM HG, HR 83 /MIN, RR 18 /MIN, TEMP 98.1 F, OXYGEN SAT % 96%, SAFE IN ENV? (Y/N) YES, NA INITIALS AW 1142, REVIEWED BY: Yanna ASHLEY RN. EXAMINATION GENERAL: THE PATIENT IS ALERT, ORIENTED TIMES THREE AND COOPERATIVE. LUNGS ARE CLEAR TO AUSCULTATION. HEART SHOWS REGULAR RHYTHM, NO MURMURS AND NO GALLOPS. ASSESSMENTS INTERVERTEBRAL DISC DISORDERS WITH RADICULOPATHY, LUMBAR REGION - M51.16 (PRIMARY) TREATMENT INTERVERTEBRAL DISC DISORDERS WITH RADICULOPATHY, LUMBAR REGION [facility] GUIDE SPINE INJECTION (PAIN)[id number] MEDICATION: PAIN VALIUM TAB 10MG ORALLY (DIAZEPAM)DELIA STOVALL 01/31/2021 12:18:11 PM > VERIFIED DEBRA ASHLEY 01/31/2021 12:20:28 PM > ADMINISTERED. 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 PROCEDURES PAIN NURSING RECORD PROCEDURE IN ROOM 1316, PHYSICIAN IN ROOM 1326, START 1329, FINISH 1334, PHYSICIAN OUT OF ROOM 1335, OUT OF ROOM 1344, ECG NORMAL SINUS, PATIENT SHIELDED YES, SAFETY STRAP YES, PREP BETADINE Sandra WITT RN, DRESSING TEGADERM DR. ROY LOC: TIA WITTIL R 01/31/2021 1:30:00 PM > , 1. ALERT, ORIENTED RESP: EDUARSISI R 01/31/2021 1:30:03 PM > , 1. REGULAR, NO DYSPNEA COLOR: PETRJULIANSISI R 01/31/2021 1:30:06 PM > , 1. PINK SKIN: PETRJULIANSISI R 01/31/2021 1:30:09 PM > , 1. WARM, DRY POSITION: PETRJULIANSISI R 01/31/2021 1:30:12 PM > , 1. PRONE VITALS: AZAEL AKBAR 01/31/2021 12:33:19 PM > HR 73 O2 95% BP 110/72 AW 01/31/21 1250 P73 02 94% R18 [id number] 1304 P71 02 94 BP 110/70 R 18 AW PETRJULIAN,SISI R 01/31/2021 1:18:37 PM > 1374/88, 67, 18, 96% PETRAS,SISI R 01/31/2021 1:24:29 PM > 133/90, 66, 18, 96% PETRAS,SISI R 01/31/2021 1:37:20 PM > 140/95, 64, 18, 96% PETRAS,SISI R 01/31/2021 1:50:45 PM > 158/90, 78, 18, 97% COMPLETION OF PROCEDURE APPOINTMENT: POST PAIN 2, DRESSING SITE DRY AND INTACT, IV N/A, GAIT STEADY, TEACHING COMPLETED, PATIENT ACKNOWLEDGES UNDERSTANDING YES, PROCEDURE APPOINTMENT COMPLETED AT 1355 BY: Sandra WITT RN PRE PROCEDURE DIAGNOSIS LUMBAR DISC DISORDER WITH RADICULOPATHY POST PROCEDURE DIAGNOSIS LUMBAR DISC DISORDER WITH RADICULOPATHY PROCEDURE LUMBAR EPIDURAL STEROID INJECTION UNDER FLUOROSCOPIC GUIDANCE SURGEON DR. KARO ROY INK TECHNICIAN NONE ANESTHESIA LOCAL PRE PROCEDURE NOTE THE PATIENT HAS A HISTORY OF CHRONIC LOW BACK PAIN. I EVALUATED THE PATIENT AND REVIEWED THE CHART. I WENT OVER THE RISKS, ALTERNATIVES, AND BENEFITS ASSOCIATED WITH THIS PROCEDURE. THE PATIENT WOULD LIKE TO PROCEED AND GIVE CONSENT TO PERFORMED THE PROCEDURE. THE PATIENT DENIES UNEXPLAINABLE WEIGHT LOSS, FEVER, CHILLS, OR NEW CHANGES IN URINARY OR BOWEL CONTROL. THE PATIENT IS COVID-19 NEGATIVE DESCRIPTION OF PROCEDURE THE PATIENT WAS BROUGHT TO THE PROCEDURE ROOM AND PLACED IN THE PRONE POSITION. THE LUMBOSACRAL AREA WAS CLEANED WITH BETADINE SOLUTION AND DRAPED ASEPTICALLY. THE PROCEDURE WAS DONE UNDER STERILE CONDITIONS. A TIMEOUT WAS PERFORMED WHERE THE CONSENTED SITE WAS VERIFIED WITH EVERYONE IN THE ROOM. UNDER FLUOROSCOPIC GUIDANCE, THE TARGET POINT WAS SELECTED AT THE INTERLAMINAR LEVEL OF L3-L4. I CONFIRMED AGAIN THE SITE OF TARGET. LIDOCAINE WAS USED TO NUMB THE SKIN AND THE SUBCUTANEOUS TISSUE BELOW IT. EPIDURAL TUOHY NEEDLE, 17-GAUGE, WAS ADVANCED UNDER FLUOROSCOPIC GUIDANCE AND FOLLOWING PATIENT FEEDBACK UNTIL THE EPIDURAL SPACE WAS REACHED 6 CM DEEP INTO THE SKIN BY THE LOSS OF RESISTANCE TECHNIQUE. ISOVUE-M DYE 30%, 0.25 ML, WAS INJECTED SHOWING ADEQUATE SPREAD OF THE DYE. THEN, A SOLUTION OF 3 ML OF NORMAL SALINE WITH DEPO-MEDROL 40 MG WAS INJECTED SLOWLY FOLLOWING PATIENT FEEDBACK. THE MEDICATIONS WERE VERIFIED WITH THE NURSE. THERE WAS NO EVIDENCE OF BLOOD, PARESTHESIA OR CEREBROSPINAL FLUID DURING THE PROCEDURE. THE PATIENT WAS SENT TO THE RECOVERY ROOM. THE PATIENT WAS MOVING THE EXTREMITIES AND DOING WELL. THERE WERE NO COMPLICATIONS DURING THE PROCEDURE. ESTIMATED BLOOD LOSS WAS LESS THAN 5 ML. FLUOROSCOPY TIME WAS 12 SECONDS POST PROCEDURE NOTE THE PATIENT WILL BE SEEN IN A FOLLOW UP IN THE NEXT FEW WEEKS. I AM LOOKING FOR LONG LASTING RELIEF FOR THE PATIENT WITH THIS INTERVENTION. INSTRUCTIONS WERE GIVEN, QUESTIONS WERE ANSWERED, AND THE PATIENT EXPRESSED UNDERSTANDING AND AGREES WITH THE PLAN. I, ROS HALL, DOCUMENTED THE ABOVE INFORMATION ACTING A SCRIBE FOR DR. ROY. I HAVE REVIEWED THE ABOVE DOCUMENT, WRITTEN BY ROS HALL, PLASTIC CNC MACHINE OPERATOR, AND I VERIFY THAT IT IS ACCURATE PROCEDURE CODES 94739 LUMBAR/SACRAL W/ IMAGING DISPOSITION & COMMUNICATION FOLLOW UP FOLLOW UP WITH DELIVERY MERCHANDISER (REASON: POST LUMBAR EPIDURAL STEROID INJECTION) ELECTRONICALLY SIGNED BY KARO ROY MD, MD ON 02/02/2021 AT 09:57 AM EDT DISCLAIMER : THIS IS A VISIT SUMMARY EXTRACTED FROM THE [employer] CHART. IT IS NOT A COPY OF THE [employer] PROGRESS NOTE. LURDES
== END ==
LOC: M PAIN 11:20
PROVIDERS: ATTEND Anesthesiology
DX: M51.16 Intervertebral disc disorders with radiculopathy, lumbar region (principal); G43.909 Migraine, unspecified, not intractable, without status migrainosus; M79.7 Fibromyalgia; K21.9 Gastro-esophageal reflux disease without esophagitis; Z86.59 Personal history of other mental and behavioral disorders; Z88.5 Allergy status to narcotic agent; Z79.899 Other long term (current) drug therapy
CPT/HCPCS: 62323; J1030; Q9967

== ENCOUNTER → 2021-04-05 | Outpatient (REF) | payer MEDICARE ==
[2021-04-05 20:32] LABS: BACTERIA, URINE AUTO NEGATIVE (NEGATIVE); MUCUS, URINE SMALL (NEGATIVE); RBC, URINE AUTO 9 /HPF (0-3); SQUAMOUS EPITHELIAL CELL UR AU 11 /HPF (0-6); WBC, URINE AUTO 1 /HPF (0-3)
== END ==
LOC: M LAB REF 17:07
PROVIDERS: ATTEND Internal Medicine Nephrology
DX: R31.29 Other microscopic hematuria (principal)

== ENCOUNTER → 2021-04-20 | Outpatient (REF) | payer MEDICARE, MEDICAID ==
[2021-04-20 12:22] LABS: BASO % 0.4 % (0.0-1.0); EOS % 0.6 % (0.0-3.0); HEMATOCRIT 36.3 % (36.0-47.0); HEMOGLOBIN 11.7 g/dl (12.0-15.5); LYMPH # 1.3 10^3/uL (1.5-5.0); LYMPH % 28.1 % (24.0-44.0); MEAN CORPUSCULAR HEMOGLOBIN 30.5 pg (27.0-33.0); MEAN CORPUSCULAR HGB CONC 32.2 g/dl (32.0-36.5); MEAN CORPUSCULAR VOLUME 94.5 fl (80.0-96.0); MONO # 0.5 10^3/uL (0.0-0.8); MONO % 10.4 % (2.0-8.0); NEUTROPHILS # 2.8 10^3/uL (1.5-8.5); NEUTROPHILS % 60.1 % (36.0-66.0); PLATELET COUNT, AUTOMATED 198 10^3/uL (150-450); RED BLOOD COUNT 3.84 10^6/uL (4.00-5.40); WHITE BLOOD COUNT 4.6 10^3/uL (4.0-10.0)
[2021-04-20 12:45] LABS: ERYTHROCYTE SEDIMENTATION RATE 6 mm/hr (0-20)
[2021-04-20 12:47] LABS: ALBUMIN 3.4 GM/DL (3.2-5.2); ALT/SGPT 17 U/L (12-78); BILIRUBIN,TOTAL 0.2 MG/DL (0.2-1.0); BLOOD UREA NITROGEN 11 MG/DL (7-18); CALCIUM LEVEL 8.6 MG/DL (8.5-10.1); CARBON DIOXIDE LEVEL 32 MEQ/L (21-32); CHLORIDE LEVEL 102 MEQ/L (98-107); COMPLEMENT C3 108 MG/DL (90-180); COMPLEMENT C4 24 MG/DL (10-40); CREATININE FOR GFR 0.76 MG/DL (0.55-1.30); GLOMERULAR FILTRATION RATE > 60.0 (>58); GLUCOSE, FASTING 83 MG/DL (70-100); POTASSIUM SERUM 4.1 MEQ/L (3.5-5.1); SODIUM LEVEL 138 MEQ/L (136-145); TOTAL PROTEIN 6.8 GM/DL (6.4-8.2)
[2021-04-27 14:54] LABS: ANTI DS-DNA AB SEE SEPARATE REPORT
== END ==
LOC: M SFHCRHEU 10:24
PROVIDERS: ATTEND Internal Medicine Rheumatology
DX: M32.9 Systemic lupus erythematosus, unspecified (principal); Z79.899 Other long term (current) drug therapy
CPT/HCPCS: 80053; 85025; 85652; 86140; 86160; 86225; G0463

== ENCOUNTER 2022-02-22 18:26 | Observation (INO) | payer MEDICARE, MEDICAID ==
[~2022-02-22] VITALS: Ht 162.6 cm; Wt 88.8 kg
[~2022-02-22 18:26] MED LIST changes: +ATOR1TAB21 PO; +BUPR150T12 PO; +CLON1TAB8 PO; +CYCL5TAB PO; +DIVA500T94 PO; +DULO1CAP6 PO; +GABA600T4 PO; +HYDR200T3 PO; -ISOVUE-M 300 61% 15ML VIAL As Ordered ONE; +LEVO200T4 PO; -LIDOCAINE 1% SDV 30ML VIAL As Ordered ONE; +OMEP40CA5 PO; +OXYB10TA23 PO; +PHEN37.58 PO; +PRAZ1CAP PO; +PRAZ5CAP PO; +REXU1TAB6 PO; +RIZA10TA58 PO; +SOLI5TAB PO; +SUCR1TAB56 PO; +TRAZ1TAB14 PO; +VERA180T42 PO; +VITA-183 PO; +VITMTA PO; -diazePAM 5MG TABLET As Ordered ONE; -methylPREDNISolone SUSP 40MG/ML 1ML VIAL (DEPO MEDROL) As Ordered ONE
[2022-02-22] MEDS ORDERED: ATORVASTATIN 20 MG TAB PO SCH (21:00)
[2022-02-22] MEDS ORDERED: PRAZOSIN 1 MG CAP PO SCH (21:00)
[2022-02-22] MEDS: DIVALPROEX 500 MG TAB PO SCH (21:00)
[2022-02-23] MEDS ORDERED: FLIN1CHW PO (00:45)
[2022-02-23] MEDS ORDERED: GABA600T4 PO (00:45)
[2022-02-23] MEDS ORDERED: HOME MED LIST COMPLETE! XX SCH (00:45)
[2022-02-23 00:46] LABS: BASO % 0.3 % (0.0-1.0); EOS # 0.1 10^3/uL (0.0-0.5); HEMATOCRIT 31.6 % (36.0-47.0); HEMOGLOBIN 9.7 g/dl (12.0-15.5); LYMPH # 1.4 10^3/uL (1.5-5.0); LYMPH % 23.9 % (24.0-44.0); MEAN CORPUSCULAR HGB CONC 30.7 g/dl (32.0-36.5); MONO # 0.8 10^3/uL (0.0-0.8); MONO % 12.8 % (2.0-8.0); NEUTROPHILS # 3.7 10^3/uL (1.5-8.5); NEUTROPHILS % 61.7 % (36.0-66.0); PLATELET COUNT, AUTOMATED 209 10^3/uL (150-450); RED BLOOD COUNT 3.59 10^6/uL (4.00-5.40); WHITE BLOOD COUNT 5.9 10^3/uL (4.0-10.0)
[2022-02-23 01:15] LABS: BLOOD UREA NITROGEN 5 MG/DL (7-18); CALCIUM LEVEL 8.4 MG/DL (8.5-10.1); CARBON DIOXIDE LEVEL 27 MEQ/L (21-32); CHLORIDE LEVEL 105 MEQ/L (98-107); CREATININE FOR GFR 0.58 MG/DL (0.55-1.30); GLOMERULAR FILTRATION RATE > 60.0 (>58); GLUCOSE, FASTING 102 MG/DL (70-100); POTASSIUM SERUM 3.5 MEQ/L (3.5-5.1); SODIUM LEVEL 138 MEQ/L (136-145)
[2022-02-23] MEDS ORDERED: ACETAMINOPHEN TAB 650MG DOSE (2X325MG) PO PRN (01:15)
[2022-02-23 05:00] VITALS: BP 144/86
[2022-02-23] MEDS ORDERED: HEPARIN SOD (PORCINE) 5000UNITS/ML 1ML VIAL/SYRINGE SC SCH (06:00)
[2022-02-23 07:23] LABS: ALBUMIN 2.7 GM/DL (3.2-5.2); ALT/SGPT 45 U/L (12-78); BILIRUBIN,TOTAL 0.6 MG/DL (0.2-1.0); BLOOD UREA NITROGEN 4 MG/DL (7-18); CALCIUM LEVEL 8.4 MG/DL (8.5-10.1); CARBON DIOXIDE LEVEL 26 MEQ/L (21-32); CHLORIDE LEVEL 106 MEQ/L (98-107); CREATININE FOR GFR 0.61 MG/DL (0.55-1.30); GLOMERULAR FILTRATION RATE > 60.0 (>58); GLUCOSE, FASTING 89 MG/DL (70-100); POTASSIUM SERUM 3.8 MEQ/L (3.5-5.1); SODIUM LEVEL 139 MEQ/L (136-145); THYROID STIMULATING HORMONE 0.209 uIU/ML (0.358-3.740); TOTAL PROTEIN 6.8 GM/DL (6.4-8.2)
[2022-02-23] MEDS ORDERED: GABAPENTIN 400MG CAP PO SCH (09:00)
[2022-02-23] MEDS ORDERED: LIDOCAINE 5% (LIDODERM) PATCH TOP SCH (09:00)
[2022-02-23] MEDS ORDERED: buPROPion **XL** TABLET 150MG (WELLBUTRIN XL) PO SCH (09:00)
[2022-02-23] MEDS ORDERED: SOLIFENACIN 5 MG TAB PO SCH (09:00)
[2022-02-23] MEDS ORDERED: DULoxetine 30MG CAPSULE (CYMBALTA) PO SCH (09:00)
[2022-02-23] MEDS ORDERED: HYDROXYCHLOROQUINE 200 MG TAB PO SCH (09:00)
[2022-02-23] MEDS ORDERED: VERAPAMIL 180MG EXTENDED RELEASE TABLET PO SCH (09:00)
[2022-02-23] MEDS: DIVALPROEX 500 MG TAB PO SCH (09:40)
[2022-02-23] MEDS ORDERED: PRED10TA2 PO (11:49)
[2022-02-23 13:27] LABS: SOURCE, BODY FLUID pH PLEURAL
[2022-02-23 13:41] LABS: APPEARANCE, BODY FLUID CLEAR (CLEAR); PLEURAL FL COLOR YELLOW (COLORLESS); SOURCE, BODY FLUID PLEURAL
[2022-02-23 13:54] LABS: AMYLASE, BODY FLUID 11 U/L (NOT ESTABLISHED); CHOLESTEROL, BODY FLUID 88 MG/DL (NOT ESTABLISHED); LDH, BODY FLUID 129 U/L (NOT ESTABLISHED); SOURCE, BODY FLUID ALBUMIN PLEURAL; SOURCE, BODY FLUID AMYLASE PLEURAL; SOURCE, BODY FLUID CHOL PLEURAL; SOURCE, BODY FLUID GLUCOSE PLEURAL; SOURCE, BODY FLUID LDH PLEURAL; SOURCE, BODY FLUID TOT PROTEIN PLEURAL; SOURCE, BODY FLUID TRIG PLEURAL; TOTAL PROTEIN, BODY FLUID 5.2 G/DL (NOT ESTABLISHED); TRIGLYCERIDE, BODY FLUID 30 MG/DL (NOT ESTABLISHED)
[2022-02-23] MEDS ORDERED: LEVOTHYROXINE 100MCG TABLET (0.1MG) PO SCH (21:00)
[2022-02-23] MEDS ORDERED: **NOTE PATIENT COMMENT** MISC XX SCH (21:00)
== END 2022-02-23 14:17 | disposition home or self-care (01) ==
LOC: M ED 18:26 → M ED INP 18:27 → M MSPAV 02-23 05:00
PROVIDERS: ADMIT Internal Medicine; ATTEND Internal Medicine
DX: J90 Pleural effusion, not elsewhere classified (principal); M32.9 Systemic lupus erythematosus, unspecified; Z79.899 Other long term (current) drug therapy; Z88.5 Allergy status to narcotic agent
CPT/HCPCS: 32555; 36415; 71046; 80048; 80053; 82042; 82150; 82465; 82945; 83615; 83986; 84157; 84443; 84478; 85025; 85652; 87070; 87075; 87102; 87116; 87205; 87206; 87486; 87581; 87633; 87798; 88108; 88305; 88313; 89051; 93005; 99285; G0378

== ENCOUNTER → 2022-05-31 | Outpatient (REF) | payer MEDICARE, MEDICAID ==
[~2022-05-31] MED LIST changes: +FLIN1CHW PO; +PRED10TA2 PO
[2022-05-31 18:27] LABS: TOTAL PROTEIN,RANDOM URINE 16.7 MG/DL (0.0-12.0)
== END ==
LOC: M LAB REF 17:10
PROVIDERS: ATTEND Nurse Practitioner Family
DX: R80.9 Proteinuria, unspecified (principal)

== ENCOUNTER → 2022-07-31 | Outpatient (CLI) | payer MEDICARE, MEDICAID ==
[~2022-07-31] MED LIST changes: +POTA-151 PO
== END ==
LOC: M LABSMTC 09:14
PROVIDERS: ATTEND Anesthesiology
DX: Z01.812 Encounter for preprocedural laboratory examination (principal); Z11.52 Encounter for screening for COVID-19

== ENCOUNTER 2022-08-05 06:42 | Day surgery (SDC) | payer MEDICARE, MEDICAID ==
[~2022-08-05] VITALS: Ht 162.6 cm; Wt 79.8 kg
[~2022-08-05 06:42] MED LIST changes: +NS 1,000 ML IV ONE
[2022-08-05] MEDS ORDERED: SIMETHICONE 40MG/0.6ML DROPS 30ML As Ordered ONE (06:56)
[2022-08-05] MEDS ORDERED: propofoL 500 MG/50 ML VIAL As Ordered ONE (07:17)
[2022-08-05] MEDS ORDERED: LIDOCAINE 2% 100MG/5ML SDV (FOR ANES.) As Ordered ONE (07:24)
[2022-08-05 08:18] VITALS: BP 126/69
== END 2022-08-05 09:45 | disposition home or self-care (01) ==
LOC: M OPP 06:42
PROVIDERS: ATTEND Internal Medicine Gastroenterology
DX: K63.5 Polyp of colon (principal); K64.0 First degree hemorrhoids; K59.00 Constipation, unspecified; Z79.02 Long term (current) use of antithrombotics/antiplatelets; Z79.52 Long term (current) use of systemic steroids; Z79.890 Hormone replacement therapy; Z79.891 Long term (current) use of opiate analgesic; Z79.899 Other long term (current) drug therapy; Z88.5 Allergy status to narcotic agent; N18.2 Chronic kidney disease, stage 2 (mild); E03.9 Hypothyroidism, unspecified; I12.9 Hypertensive chronic kidney disease with stage 1 through stage 4 chronic kidney disease, or unspecified chronic kidney disease; E78.00 Pure hypercholesterolemia, unspecified; D64.9 Anemia, unspecified; M19.90 Unspecified osteoarthritis, unspecified site; Z98.84 Bariatric surgery status

== ENCOUNTER → 2023-06-24 | Outpatient (REF) | payer MEDICARE, MEDICAID ==
[~2023-06-24] MED LIST changes: -HYDR200T3 PO; +HYDR200T46 PO; -NS 1,000 ML IV ONE
[2023-06-24 18:50] LABS: TOTAL PROTEIN,RANDOM URINE 35.1 MG/DL (0.0-14.0)
[2023-06-24 18:54] LABS: CREATININE,RANDOM URINE 110.4 MG/DL
== END ==
LOC: M LAB REF 17:18
PROVIDERS: ATTEND Nurse Practitioner Family
DX: R80.9 Proteinuria, unspecified (principal)

== ENCOUNTER → 2025-01-28 | Outpatient (REF) | payer MEDICARE, OTHER ==
[~2025-01-28] MED LIST changes: -CYCL5TAB PO; +CYCL5TAB4 PO; +D31000CA6 PO; +DIVA-41 PO; -DIVA500T94 PO; +GABA-1490 PO; -GABA600T4 PO; -VITA-183 PO
== END ==
LOC: M LAB REF 16:50
PROVIDERS: ATTEND Nurse Practitioner Family
DX: N39.0 Urinary tract infection, site not specified (principal)

== ENCOUNTER → 2025-05-27 | Outpatient (REF) | payer MEDICARE ==
[2025-05-27 13:38] LABS: APPEARANCE, URINE HAZY (CLEAR); BACTERIA, URINE AUTO NEGATIVE (NEGATIVE); BILIRUBIN, URINE AUTO NEGATIVE (NEGATIVE); BLOOD, URINE BLOOD 2+ (NEGATIVE); GLUCOSE, URINE (UA) AUTO NEGATIVE (NEGATIVE); KETONE, URINE AUTO NEGATIVE (NEGATIVE); LEUKOCYTE ESTERASE, URINE AUTO NEGATIVE (NEGATIVE); NITRITE, URINE AUTO NEGATIVE (NEGATIVE); PROTEIN, URINE AUTO NEGATIVE (NEGATIVE); RBC, URINE AUTO 16 /HPF (0-3); SPECIFIC GRAVITY URINE AUTO 1.013 (1.002-1.035); SQUAMOUS EPITHELIAL CELL UR AU 2 /HPF (0-6); UROBILINOGEN, URINE AUTO 0.2 mg/dL (0.0-2.0); WBC, URINE AUTO 2 /HPF (0-3)
== END ==
LOC: M SMT 12:44
PROVIDERS: ATTEND Nurse Practitioner Family
DX: N39.0 Urinary tract infection, site not specified (principal)

== ENCOUNTER → 2025-07-11 | Outpatient (REF) | payer MEDICARE ==
[2025-07-11 14:15] LABS: APPEARANCE, URINE HAZY (CLEAR); BACTERIA, URINE AUTO 1+ (NEGATIVE); BILIRUBIN, URINE AUTO NEGATIVE (NEGATIVE); BLOOD, URINE BLOOD 2+ (NEGATIVE); GLUCOSE, URINE (UA) AUTO NEGATIVE (NEGATIVE); KETONE, URINE AUTO NEGATIVE (NEGATIVE); LEUKOCYTE ESTERASE, URINE AUTO NEGATIVE (NEGATIVE); NITRITE, URINE AUTO NEGATIVE (NEGATIVE); PROTEIN, URINE AUTO NEGATIVE (NEGATIVE); RBC, URINE AUTO 4 /HPF (0-3); SPECIFIC GRAVITY URINE AUTO 1.012 (1.002-1.035); SQUAMOUS EPITHELIAL CELL UR AU 7 /HPF (0-6); UROBILINOGEN, URINE AUTO 0.2 mg/dL (0.0-2.0); WBC, URINE AUTO 3 /HPF (0-3)
== END ==
LOC: M LAB REF 12:57
PROVIDERS: ATTEND Nurse Practitioner Family
DX: R31.29 Other microscopic hematuria (principal)